=== PATIENT | male | born 1940 | race Caucasian/White ===

== ENCOUNTER 2018-11-18 09:10 | Inpatient (IN) | payer MEDICARE ==
[~2018-11-18 09:10] MED LIST: Acetaminophen 325 MG Tab PO SCH; Bisacodyl 5 MG Tab PO PRN; Lactated Ringers 1,000 ML IV SCH; Lidocaine 1%/Sod Bicarbonate in NS 8.4% 1 ML Syringe IDERM PRN; Magnesium Hydroxide 400 MG/5 ML Susp 30 ML Cup PO PRN; Morphine 8 MG, EPINEPHrine 0.3 MG, Cefuroxime 750 MG, Ketorolac 30 MG, Sodium Chloride ... ONE; Naloxone 0.4 MG/ML SDV IVPUSH PRN; Ondansetron 4 MG/2 ML SDV IVPUSH PRN; Pregabalin 25 MG Cap PO SCH; Sennosides 8.6 MG Tab PO PRN; Sodium Chloride 0.9% 10 ML Syringe FLUSH PRN; oxyCODONE ER 10 MG TAB.ER PO SCH
[2018-11-18] MEDS ORDERED: EPINEPHrine 1 MG/ML SDV ONE (09:30)
[2018-11-18] MEDS ORDERED: Ropivacaine 0.5% 5 MG/ML 30 ML SDV ONE (09:30)
[2018-11-18] MEDS ORDERED: ceFAZolin 1 GM Vial ONE ×2 (10:28→11:54)
[2018-11-18] MEDS ORDERED: Vancomycin 1 GM SDV ONE (10:28)
[2018-11-18] MEDS ORDERED: Iodine/Sodium Iodide 2% Tincture 30 ML Bottle ONE (10:28)
[2018-11-18] MEDS ORDERED: Bupivacaine 0.25% 30 ML SDV ONE (10:28)
[2018-11-18] MEDS ORDERED: Ketamine 500 mg/10 ML MDV ONE (11:04)
--- NOTE | 2018-11-18 11:23 | PCM.PREANE ---
Preanesthetic Assessment - Anesthesia/Transfusion/Family Hx Anesthesia History: Prior Anesthesia Reaction (headache and nausea with arm surgery) Family History of Anesthesia Reaction: No Transfusion History: No Prior Transfusion(s) - Review of Systems General: No Symptoms Pulmonary: No Symptoms Cardiovascular: Dyspnea on Exertion Gastrointestinal: No Symptoms Neurological: Tingling (tips of fingers) Other: Reports: Diabetes (AM BS 108@0952), Neck Pain (arthritic pain at times) - Physical Assessment NPO Status Date: 11/17/18 NPO Status Time: 22:00 Pulse: 78 O2 Sat by Pulse Oximetry: 96 Respiratory Rate: 18 Blood Pressure: 167/67 Temperature: 36.3 C Vital Signs: Last Vital Signs Temp 36.3 C 11/18/18 09:45 Pulse 78 11/18/18 09:45 Resp 18 11/18/18 09:45 BP 167/67 H 11/18/18 09:45 Pulse Ox 96 11/18/18 09:45 Height: 1.78 m Weight: 92.079 kg ASA Class: 3 Mental Status: Alert & Oriented x3 Dentition: Reports: Normal Dentition, Missing Tooth/Teeth Thyro-Mental Finger Breadths: 2 Mouth Opening Finger Breadths: 3 ROM/Head Extension: Limited/Partial Lungs: Clear to Auscultation, Normal Respiratory Effort Cardiovascular: Regular Rate, Regular Rhythm - Lab Values: Laboratory Last Values POC Glucose 108 mg/dL (83-110) 11/18/18 09:52 - Imaging/EKG Impressions: EKG NSR = 69 ECHO 2018 EF=50-55% - Allergies Allergies/Adverse Reactions: Allergies Allergy/AdvReac Type Severity Reaction Status Date / Time No Known Allergies Allergy Verified 11/18/18 10:42 - Blood Blood Available: No Product(s) Available: None - Anesthesia Plan Pre-Op Medication Ordered: None - Acknowledgements Anesthesia Type Planned: Spinal Pt an Appropriate Candidate for the Planned Anesthesia: Yes Alternatives and Risks of Anesthesia Discussed w Pt/Guardian: Yes Pt/Guardian Understands and Agrees with Anesthesia Plan: Yes PreAnesthesia Questionnaire HEENT History: Reports: Cataract, Impaired Vision Cardiovascular History: Reports: Other (See Below) Other Cardiovascular History: Valvular heart disease Respiratory History: Reports: Asthma, COPD Gastrointestinal History: Reports: None Genitourinary History: Reports: None Musculoskeletal History: Reports: Other (See Below) Other Musculoskeletal History: Left forearm fracture, left tricep tear. Had broken neck twice "fell out of a tractor in 2009 and 2010" "C1 fractures" Neurological History: Reports: None Psychiatric History: Reports: None Endocrine/Metabolic History: Reports: Diabetes, Type II Hematologic History: Reports: None Immunologic History: Reports: None Oncologic (Cancer) History: Reports: None Dermatologic History: Reports: None - Past Surgical History Head Surgeries/Procedures: Reports: None HEENT Surgical History: Reports: Other (See Below) Other HEENT Surgeries/Procedures: Left cataract extraction Cardiovascular Surgical History: Reports: None Respiratory Surgical History: Reports: None GI Surgical History: Reports: Appendectomy, Colonoscopy, Other (See Below) Other GI Surgeries/Procedures: Exploratory abdominal surgery Male Surgical History: Reports: None Endocrine Surgical History: Reports: None Neurological Surgical History: Reports: None Musculoskeletal Surgical History: Reports: Other (See Below) Other Musculoskeletal Surgeries/Procedures:: ORIF left forearm fracture, Repair of left tricep tear Dermatological Surgical History: Reports: None - SUBSTANCE USE Smoking Status *Q: 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) Tobacco Use Within Last Twelve Months: No Second Hand Smoke Exposure: No Days Per Week of Alcohol Use: 1 Number of Drinks Per Day: 0 Total Drinks Per Week: 0 Recreational Drug Use History: No - HOME MEDS Home Medications: Home Meds Fluticasone/Vilanterol [Breo Ellipta 200-25 Mcg INH] 1 puff IH DAILY 11/17/18 [ History] Insulin Glarg,Human.Rec.Analog [Lantus] 40 unit SUBCUT QAM 11/17/18 [History] Insulin Lispro [HumaLOG] 8 unit SQ BEDTIME 11/17/18 [History] Potassium Chloride 40 meq PO DAILY 11/17/18 [History] metFORMIN HCl [Metformin HCl] 1,000 mg PO BEDTIME 11/17/18 [History] - CURRENT (IN HOUSE) MEDS Current Meds: Current Medications Acetaminophen (Tylenol) 975 mg PO ONETIME ALEX Stop: 11/18/18 16:00 Last Admin: 11/18/18 10:15 Dose: 975 mg Aspirin (Ecotrin) 325 mg PO BID ALEX Bisacodyl (Dulcolax) 5 mg PO DAILY PRN PRN Reason: Constipation Cyclobenzaprine HCl (Flexeril) 10 mg PO BID PRN PRN Reason: Spasms Docusate Sodium (Colace) 100 mg PO BID [facility] Famotidine (Pepcid) 20 mg PO Q12H [facility] Lactated Ringer's (Ringers, Lactated) 1,000 mls @ 125 mls/hr IV ASDIRECTED [facility] Stop: 11/18/18 18:00 Last Admin: 11/18/18 09:50 Dose: 125 mls/hr Cefazolin Sodium/Dextrose 2 gm (/ Premix) 50 mls @ 100 mls/hr IV Q8H [facility] Stop: 11/19/18 10:29 Ketorolac Tromethamine (Toradol) 15 mg IVPUSH Q6H PRN PRN Reason: Pain Lidocaine/Sodium Bicarbonate (Buffered Lidocaine 1% In Ns 8.4%) 0.25 ml IDERM ONETIME PRN PRN Reason: Prior to IV Start Stop: 11/18/18 18:00 Last Admin: 11/18/18 09:50 Dose: 0.25 ml Magnesium Hydroxide (Milk Of Magnesia) 30 ml PO BID PRN PRN Reason: Constipation Morphine Sulfate (Morphine) 2 mg IVPUSH Q2H PRN PRN Reason: Breakthrough Pain Naloxone HCl (Narcan) 0.1 mg IVPUSH Q5M PRN PRN Reason: Oversedation Ondansetron HCl (Zofran) 4 mg IVPUSH Q6H PRN PRN Reason: Nausea/Vomiting Oxycodone HCl (Oxycontin) 10 mg PO ONETIME [facility] Stop: 11/18/18 16:00 Last Admin: 11/18/18 10:15 Dose: 10 mg Oxycodone/Acetaminophen (Percocet 325-5 Mg) 1 - 2 tab PO Q4H PRN PRN Reason: Pain Pregabalin (Lyrica) 50 mg PO ONETIME [facility] Stop: 11/18/18 16:00 Last Admin: 11/18/18 10:15 Dose: 50 mg Senna (Senna) 8.6 mg PO BID PRN PRN Reason: Constipation Sodium Chloride (Saline Flush) 10 ml FLUSH ASDIRECTED PRN PRN Reason: Keep Vein Open Stop: 11/18/18 18:00 Discontinued Medications Bupivacaine HCl (Marcaine 0.25%) Confirm Administered Dose 30 ml .ROUTE .STK- MED ONE Stop: 11/18/18 10:29 Cefazolin Sodium (Ancef) Confirm Administered Dose 2 gm .ROUTE .STK-MED ONE Stop: 11/18/18 10:29 Morphine Sulfate 8 mg/Epinephrine HCl 0.3 mg/Cefuroxime Sodium 750 mg/Ketorolac Tromethamine 30 mg/Sodium Chloride 27.9 ml 0 mg .XX ONETIME ONE Stop: 11/18/18 07:31 Epinephrine HCl (Adrenalin) Confirm Administered Dose 1 mg .ROUTE .STK-MED ONE Stop: 11/18/18 09:31 Iodine (Iodine 2% Mild Tincture) Confirm Administered Dose 30 ml .ROUTE .STK- MED ONE Stop: 11/18/18 10:29 Ketamine HCl (Ketalar) Confirm Administered Dose 500 mg .ROUTE .STK-MED ONE Stop: 11/18/18 11:05 Ropivacaine (Naropin 0.5%) Confirm Administered Dose 30 ml .ROUTE .STK-MED ONE Stop: 11/18/18 09:31 Tranexamic Acid (Cyklokapron) Confirm Administered Dose 1,000 mg .ROUTE .STK- MED ONE Stop: 11/18/18 10:29 Vancomycin HCl (Vancomycin) Confirm Administered Dose 1 gm .ROUTE .STK-MED ONE Stop: 11/18/18 10:29
[2018-11-18] MEDS ORDERED: Propofol 200 MG/20 ML SDV ONE ×3 (11:42→13:02)
[2018-11-18] MEDS ORDERED: Lidocaine 1% 4 ML ONE (11:43)
[2018-11-18] MEDS ORDERED: fentaNYL 100 MCG/2 ML SDV ONE (11:43)
[2018-11-18] MEDS ORDERED: Lactated Ringers 1,000 ML ONE (12:00)
--- NOTE | 2018-11-18 12:34 | PCM.CONS ---
H&P History of Present Illness - General Date of Service: 11/18/18 Admit Problem/Dx: Admission Diagnosis/Problem Admission Diagnosis/Problem Osteoarthritis of knee Source of Information: Patient, Old Records, Provider, RN, RN Notes Reviewed History Limitations: Reports: No Limitations - History of Present Illness Initial Comments - Free Text/Narative: Abel Pulido is a 78 yo male patient of Dr. Sevilla who is post-operative day 0 of right TKA. Hospital medicine was consulted for post-operative medical care of the following listed medical conditions. At this time he is resting comfortably in bed. Pain is controlled. He denies any chest pain, shortness of breath, palpitations, nausea, or vomiting. He carries a history of: impaired vision, valvular heart disease with mild AR and TR, moderate MR, diabetic neuropathy, moderate asthma, COPD, Hx/o C1 fracture, Type II DM, hypokalemia. 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 He is a full code. His primary care provider is Dr. Lopez. Right Knee Pain Score (Numeric/FACES): 6 - Related Data Allergies/Adverse Reactions: Allergies Allergy/AdvReac Type Severity Reaction Status Date / Time No Known Allergies Allergy Verified 11/18/18 10:42 Home Medications: Home Meds Fluticasone/Vilanterol [Breo Ellipta 200-25 Mcg INH] 1 puff IH DAILY 11/17/18 [ History] Insulin Glarg,Human.Rec.Analog [Lantus] 40 unit SUBCUT QAM 11/17/18 [History] Insulin Lispro [HumaLOG] 8 unit SQ BEDTIME 11/17/18 [History] Potassium Chloride 40 meq PO DAILY 11/17/18 [History] metFORMIN HCl [Metformin HCl] 1,000 mg PO BEDTIME 11/17/18 [History] Past Medical History HEENT History: Reports: Cataract, Impaired Vision Cardiovascular History: Reports: Other (See Below) Other Cardiovascular History: Valvular heart disease Respiratory History: Reports: Asthma, COPD Gastrointestinal History: Reports: None Genitourinary History: Reports: None Musculoskeletal History: Reports: Other (See Below) Other Musculoskeletal History: Left forearm fracture, left tricep tear. Had broken neck twice "fell out of a tractor in 2009 and 2010" "C1 fractures" Neurological History: Reports: None Psychiatric History: Reports: None Endocrine/Metabolic History: Reports: Diabetes, Type II Hematologic History: Reports: None Immunologic History: Reports: None Oncologic (Cancer) History: Reports: None Dermatologic History: Reports: None - Past Surgical History Head Surgeries/Procedures: Reports: None HEENT Surgical History: Reports: Other (See Below) Other HEENT Surgeries/Procedures: Left cataract extraction Cardiovascular Surgical History: Reports: None Respiratory Surgical History: Reports: None GI Surgical History: Reports: Appendectomy, Colonoscopy, Other (See Below) Other GI Surgeries/Procedures: Exploratory abdominal surgery Male Surgical History: Reports: None Endocrine Surgical History: Reports: None Neurological Surgical History: Reports: None Musculoskeletal Surgical History: Reports: Other (See Below) Other Musculoskeletal Surgeries/Procedures:: ORIF left forearm fracture, Repair of left tricep tear Dermatological Surgical History: Reports: None Social & Family History - Tobacco Use Smoking Status *Q: 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 Denies: Fever, Chills HEENT: Reports: No Symptoms. Denies: Headaches, Sore Throat Pulmonary: Reports: No Symptoms. Denies: Shortness of Breath, Wheezing, Cough, Sputum Cardiovascular: Reports: No Symptoms. Denies: Chest Pain, Palpitations Gastrointestinal: Reports: Nausea. Denies: Abdominal Pain, Constipation, Diarrhea, Vomiting (occasional "Spit up") Genitourinary: Reports: No Symptoms. Denies: Pain Musculoskeletal: Reports: Leg Pain Skin: Reports: No Symptoms. Denies: Cyanosis Psychiatric: Reports: No Symptoms. Denies: Confusion Neurological: Reports: No Symptoms. Denies: Pre-Existing Deficit Hematologic/Lymphatic: Reports: No Symptoms Immunologic: Reports: No Symptoms Exam - Exam Exam: See Below - Vital Signs Vital Signs: Last Vital Signs Temp 97.4 F 11/18/18 11:30 Pulse 78 11/18/18 11:30 Resp 18 11/18/18 11:30 BP 167/67 H 11/18/18 11:30 Pulse Ox 96 11/18/18 11:30 Weight: 203 lb - Exam Quality Assessment: DVT Prophylaxis General: Alert, Oriented, Cooperative. No: Mild Distress HEENT: Conjunctiva Clear, EACs Clear, EOMI, Hearing Intact, Mucosa Moist & [place] , Nares Patent, Posterior Pharynx Clear, PERRLA Neck: Supple, Trachea Midline Lungs: Clear to Auscultation, Normal Respiratory Effort Cardiovascular: Regular Rate, Regular Rhythm GI/Abdominal Exam: Normal Bowel Sounds, Soft, Non-Tender, No Distention, No Abnormal Bruit (Male) Exam: Deferred Rectal (Males) Exam: Deferred Back Exam: Normal Inspection, Full Range of Motion Extremities: No Pedal Edema, Normal Capillary Refill, Leg Pain, Limited Range of Motion, Other (Bandage in place on right leg. Bandage is dry and intact. Cooling pack in place. ) Peripheral Pulses: 2+: Radial (L), Radial (R), Dorsalis Pedis (L), Dorsalis Pedis (R) Skin: Warm, Dry, Intact Neurological: Cranial Nerves Intact (grossly ) Neuro Extensive - Mental Status: Alert, Oriented x3 - Patient Data Lab Results Last 24 hrs: Laboratory Results - last 24 hr 11/18/18 Range/Units 09:52 POC Glucose 108 (83-110) mg/dL Consult PN Assessment/Plan POD#: 0 Procedures: Procedures MR-STAPH DNA AMP PROBE (11/11/18) (1) S/P total knee arthroplasty SNOMED Code(s): 5463566620208, 904434244, 9538808997761 Code(s): Z96.659 - PRESENCE OF UNSPECIFIED ARTIFICIAL KNEE JOINT Priority: High Current Visit: Yes Qualifiers: Laterality: right Qualified Code(s): Z96.651 - Presence of right artificial knee joint (2) Osteoarthritis SNOMED Code(s): 742294466 Code(s): M19.90 - UNSPECIFIED OSTEOARTHRITIS, UNSPECIFIED SITE Priority: High Current Visit: Yes Qualifiers: Osteoarthritis location: knee Osteoarthritis type: primary Laterality: right Qualified Code(s): M17.11 - Unilateral primary osteoarthritis, right knee (3) Asthma SNOMED Code(s): 163773234 Code(s): J45.909 - UNSPECIFIED ASTHMA, UNCOMPLICATED Priority: Medium Current Visit: No Qualifiers: Asthma severity: moderate Asthma persistence: unspecified Asthma complication type: unspecified Qualified Code(s): J45.909 - Unspecified asthma , uncomplicated (4) Type II diabetes mellitus SNOMED Code(s): 75589314 Code(s): E11.9 - TYPE 2 DIABETES MELLITUS WITHOUT COMPLICATIONS Priority: Medium Current Visit: No Qualifiers: Diabetes mellitus half-way insulin use: unspecified joint terminal attack controller insulin use status Diabetes mellitus complication status: without complication Qualified Code(s): E11.9 - Type 2 diabetes mellitus without complications (5) Hypokalemia SNOMED Code(s): 31322560 Code(s): E87.6 - HYPOKALEMIA Priority: Low Current Visit: No (6) Valvular heart disease SNOMED Code(s): 628060 Code(s): I38 - ENDOCARDITIS, VALVE UNSPECIFIED Priority: Medium Current Visit: No (7) Diabetic neuropathy SNOMED Code(s): 681616247, 639410771 Code(s): E11.40 - TYPE 2 DIABETES MELLITUS WITH DIABETIC NEUROPATHY, UNSP Priority: Medium Current Visit: No Qualifiers: Diabetes mellitus type: type 2 (8) COPD (chronic obstructive pulmonary disease) SNOMED Code(s): 47631837 Code(s): J44.9 - CHRONIC OBSTRUCTIVE PULMONARY DISEASE, UNSPECIFIED Priority: Medium Current Visit: No Qualifiers: COPD type: unspecified COPD Qualified Code(s): J44.9 - Chronic obstructive pulmonary disease, unspecified (9) Postoperative nausea SNOMED Code(s): 98693000 Code(s): R11.0 - NAUSEA; Z98.890 - OTHER SPECIFIED POSTPROCEDURAL STATES Priority: High Current Visit: Yes Problem List Initiated/Reviewed/Updated: No Plan: I/P: Acute: S/P right total knee arthroplasty - post-operative day 0 -DVT prophylaxis and pain management per primary care team -PT/OT -IS/RT -Monitor oxygen saturation -Titrate oxygen as needed -Home medications reviewed - multiple medications held -Vital signs stable -Monitor labs -Pre-operative Hgb was 15.1 -Pre-operative GFR was >60 -Pre-operative creatinine was 1.1 -Pre-operative BUN was 29 -Pre-operative A1C was 7.1 -Pre-operative INR was 1.13 -Echo from 03/05/19: LVEF of 50-55%; Mild AV regurgitation; Moderate MV regurgitation Osteoarthritis of right knee -Pain management per primary care team Post-operative nausea -Waves of nausea and occasionally spits up some saliva -Has not actually vomited -Zofran and scopolamine patch ordered -Monitor need for stronger antiemetic Chronic: impaired vision valvular heart disease with mild AR and TR, moderate MR diabetic neuropathy moderate asthma COPD Hx/o C1 fracture Type II DM - SS insulin and QID AC and Bedtime glucose checks hypokalemia Plan: CM for discharge planning GI prophylaxis Home medications as indicated Other orders as listed above Routine AM labs He is a full code. His PCP is Dr. Lopez. Thank you for allowing us to participate in the care of this patient!! Requesting Provider: Dr. Sevilla Date Consult Requested: 11/18/18 Patient History Reviewed: Yes Admission H&P Reviewed: Yes Time Spent (in minutes): 45
--- NOTE | 2018-11-18 13:43 | PCM.POSTAN ---
POST ANESTHESIA ASSESSMENT - MENTAL STATUS Mental Status: Other (drowsy) - VITAL SIGNS Pulse Rate: 78 SaO2: 96 Resp Rate: 18 Blood Pressure: 167/67 Temperature: 36.3 C - RESPIRATORY Respiratory Status: Respiratory Rate WNL, Airway Patent, O2 Saturation Stable - CARDIOVASCULAR CV Status: Pulse Rate WNL, Blood Pressure Stable - GASTROINTESTINAL GI Status: No Symptoms - PAIN Pain Score: 0 - POST OP HYDRATION Hydration Status: Adequate & Stable
[2018-11-18] MEDS ORDERED: Ondansetron 4 MG/2 ML SDV IVPUSH PRN (13:44)
[2018-11-18] MEDS ORDERED: diphenhydrAMINE 50 MG/ML SDV IVPUSH PRN (13:44)
[2018-11-18] MEDS ORDERED: fentaNYL 100 MCG/2 ML SDV IVPUSH PRN (13:44)
--- NOTE | 2018-11-18 14:55 | PCM.SN ---
- Free Text/Narrative Note: 11/18/18 Right selective femoral nerve block at the adductor canal for post-procedure pain control under US guidance requested by Dr. Sevilla. Time Out:1348 Start:1350 End: 1357 Chart reviewed. Consent signed. Questions answered. Appropriate monitors applied. Time out performed. Right mid-shaft femur identified with ultrasound, scanning medially of femur, the femoral artery in the adductor canal visualized , and the femoral nerve located laterally to the artery. The skin was prepped lateral to the ultrasound probe with chlorahexadine times two. The 21ga 4 insulated block needle was inserted under direct ultrasound guidance into the adductor canal. 25mL of 0.5% ropivacaine with 1:200,000 epinephrine was injected circumferentially around the nerve with intermittent negative aspiration noted. Patient tolerated the procedure well. Sterile technique noted along with sterile gloves, mask, and sterile probe cover. See picture on progress note and vital signs on nurses notes. Block completed in PACU. Morena Whaley CRNA
--- NOTE | 2018-11-18 14:57 | CR ---
Right knee: AP and lateral views the right knee were obtained. Comparison: No previous knee exam. Knee prosthesis is seen. Soft tissue air is noted from surgical procedure. Underlying bony structures are intact. Impression: 1. Satisfactory postoperative radiographic appearance of recently placed right knee prosthesis. Diagnostic code #2
[2018-11-18] MEDS ORDERED: Scopolamine 1.5 MG Transdermal Patch TRDERM PRN (15:17)
[2018-11-18] MEDS: Insulin Lispro 100 Units/ML 3 ML Vial SUBCUT SCH ×2 (17:11→21:30)
[2018-11-18] MEDS ORDERED: Prochlorperazine 10 MG in Sodium Chloride 0.9% 50 ML IV PRN (17:21)
[2018-11-18] MEDS ORDERED: Prochlorperazine 10 MG/2 ML SDV IVPUSH PRN (17:26)
[2018-11-18] MEDS: Acetaminophen/oxyCODONE 325-5 MG Tab PO PRN (17:41)
[2018-11-18] MEDS: Ketorolac 15 MG/ML SDV IVPUSH PRN (21:33)
[2018-11-18] MEDS: ceFAZolin 2 GM in Premix Bag 1 BAG IV SCH (21:33)
[2018-11-18] MEDS: Famotidine 20 MG Tab PO SCH (21:41)
[2018-11-18] MEDS: Docusate Sodium 100 MG Cap PO SCH (21:41)
[2018-11-19] MEDS: Ketorolac 15 MG/ML SDV IVPUSH PRN (03:54)
[2018-11-19] MEDS: ceFAZolin 2 GM in Premix Bag 1 BAG IV SCH ×2 (03:54→12:52)
--- NOTE | 2018-11-19 06:39 | PCM.CONSN ---
- General Info Date of Service: 11/19/18 Admission Dx/Problem (Free Text): Admission Diagnosis/Problem Admission Diagnosis/Problem Osteoarthritis of knee Subjective Update: 11/19/18: In to see Abel. He has been a 2 assist this AM. PT/OT is still unsure of how he will do at home. He will likely need to stay at least tonight. Unfortunately he was nauseated and dry heaving yesterday evening for most of the day. This limited his oral intake. His creatinine was elevated this AM and his GFR has decreased. 500mL fluid bolus given with 100mL NS thereafter until 1L is infused. He has been eating well today thus far. Repeat labs will be ordered tomorrow to re-check kidney function. We will monitor his blood sugars and may need his insulin adjusted again now that he is eating. CM/SW consulted for discharge planning. Functional Status: Reports: Pain Controlled, Tolerating Diet, Ambulating, Urinating, Incentive Spirometry. Denies: New Symptoms - Review of Systems General: Reports: Weakness, Fatigue. Denies: Fever, Chills HEENT: Reports: No Symptoms. Denies: Headaches, Sore Throat Pulmonary: Reports: No Symptoms. Denies: Shortness of Breath, Pleuritic Chest Pain, Cough, Sputum, Wheezing Cardiovascular: Reports: No Symptoms. Denies: Chest Pain, Palpitations Gastrointestinal: Reports: No Symptoms. Denies: Abdominal Pain, Constipation, Diarrhea, Nausea, Vomiting Genitourinary: Reports: No Symptoms. Denies: Pain Musculoskeletal: Reports: Leg Pain Skin: Reports: No Symptoms. Denies: Cyanosis Neurological: Reports: Difficulty Walking, Weakness, Gait Disturbance. Denies: Confusion Psychiatric: Reports: No Symptoms - Patient Data Vitals - Most Recent: Last Vital Signs Temp 97.9 F 11/19/18 03:51 Pulse 71 11/19/18 03:51 Resp 18 11/19/18 03:51 BP 115/73 11/19/18 03:51 Pulse Ox 99 11/19/18 03:51 Weight - Most Recent: 208 lb 4.8 oz I&O - Last 24 Hours: Intake & Output 11/18/18 11/18/18 11/19/18 14:59 22:59 06:59 Intake Total 250 400 250 Output Total 150 50 Balance 250 250 200 Lab Results Last 24 Hours: Laboratory Results - last 24 hr 11/18/18 11/18/18 11/18/18 Range/Units 09:52 14:16 16:42 WBC (4.23-9.07) K/mm3 RBC (4.63-6.08) M/mm3 Hgb (13.7-17.5) gm/L Hct (40.1-51.0) % MCV (79.0-92.2) fl MCH (25.7-32.2) pg MCHC (32.2-35.5) g/dl RDW Std Deviation (35.1-43.9) fL Plt Count (163-337) K/mm3 MPV (9.4-12.3) fl Sodium (136-145) mEq/L Potassium (3.5-5.1) mEq/L Chloride (98-107) mEq/L Carbon Dioxide (21-32) mEq/L Anion Gap (5-15) BUN (7-18) mg/dL Creatinine (0.7-1.3) mg/dL Est Cr Clr Drug Dosing mL/min Estimated GFR (MDRD) (>60) mL/min BUN/Creatinine Ratio (14-18) Glucose (83-115) mg/dL POC Glucose 108 125 H 168 H (83-110) mg/dL Calcium (8.5-10.1) mg/dL Total Bilirubin (0.2-1.0) mg/dL AST (15-37) U/L ALT (16-63) U/L Alkaline Phosphatase (46-116) U/L Total Protein (6.4-8.2) g/dl Albumin (3.4-5.0) g/dl Globulin gm/dL Albumin/Globulin Ratio (1-2) 11/18/18 11/19/18 11/19/18 Range/Units 21:27 04:42 04:42 WBC 8.28 (4.23-9.07) K/mm3 RBC 3.74 L (4.63-6.08) M/mm3 Hgb 11.6 L (13.7-17.5) gm/L Hct 34.3 L (40.1-51.0) % MCV 91.7 (79.0-92.2) fl MCH 31.0 (25.7-32.2) pg MCHC 33.8 (32.2-35.5) g/dl RDW Std Deviation 43.2 (35.1-43.9) fL Plt Count 185 (163-337) K/mm3 MPV 10.7 (9.4-12.3) fl Sodium 138 (136-145) mEq/L Potassium 3.5 (3.5-5.1) mEq/L Chloride 101 (98-107) mEq/L Carbon Dioxide 28 (21-32) mEq/L Anion Gap 12.5 (5-15) BUN 26 H (7-18) mg/dL Creatinine 1.4 H (0.7-1.3) mg/dL Est Cr Clr Drug Dosing 46.35 mL/min Estimated GFR (MDRD) 49 (>60) mL/min BUN/Creatinine Ratio 18.6 H (14-18) Glucose 190 H (83-115) mg/dL POC Glucose 166 H (83-110) mg/dL Calcium 7.9 L (8.5-10.1) mg/dL Total Bilirubin 0.9 (0.2-1.0) mg/dL AST 23 (15-37) U/L ALT 46 (16-63) U/L Alkaline Phosphatase 47 (46-116) U/L Total Protein 5.3 L (6.4-8.2) g/dl Albumin 2.8 L (3.4-5.0) g/dl Globulin 2.5 gm/dL Albumin/Globulin Ratio 1.1 (1-2) Med Orders - Current: Current Medications Aspirin (Ecotrin) 325 mg PO BID [facility] Bisacodyl (Dulcolax) 5 mg PO DAILY PRN PRN Reason: Constipation Cyclobenzaprine HCl (Flexeril) 10 mg PO BID PRN PRN Reason: Spasms Docusate Sodium (Colace) 100 mg PO BID [facility] Last Admin: 11/18/18 21:41 Dose: 100 mg Famotidine (Pepcid) 20 mg PO Q12H [facility] Last Admin: 11/18/18 21:41 Dose: 20 mg Cefazolin Sodium/Dextrose 2 gm (/ Premix) 50 mls @ 100 mls/hr IV Q8H [facility] Stop: 11/19/18 12:29 Last Admin: 11/19/18 03:54 Dose: 100 mls/hr Insulin Glargine (Lantus) 20 unit SUBCUT QAM [facility] Insulin Human Lispro (Humalog) 0 unit SUBCUT QIDACANDBED [facility]; Protocol Last Admin: 11/18/18 21:30 Dose: 1 units Ketorolac Tromethamine (Toradol) 15 mg IVPUSH Q6H PRN PRN Reason: Pain Last Admin: 11/19/18 03:54 Dose: 15 mg Magnesium Hydroxide (Milk Of Magnesia) 30 ml PO BID PRN PRN Reason: Constipation Miscellaneous Information (Remove Patch) 1 ea TRDERM Q72H [facility] Mometasone Furoate/Formoterol Fumar (Dulera 200-5 Mcg) 2 puff IH BID [facility] Morphine Sulfate (Morphine) 2 mg IVPUSH Q2H PRN PRN Reason: Breakthrough Pain Naloxone HCl (Narcan) 0.1 mg IVPUSH Q5M PRN PRN Reason: Oversedation Ondansetron HCl (Zofran) 4 mg IVPUSH Q6H PRN PRN Reason: Nausea/Vomiting Last Admin: 11/18/18 14:32 Dose: 4 mg Oxycodone/Acetaminophen (Percocet 325-5 Mg) 1 - 2 tab PO Q4H PRN PRN Reason: Pain Last Admin: 11/18/18 17:41 Dose: 2 tab Prochlorperazine Edisylate (Compazine) 10 mg IVPUSH Q6H PRN PRN Reason: NAUSEA/VOMITING Last Admin: 11/18/18 17:37 Dose: 10 mg Scopolamine (Transderm-Scop) 1.5 mg TRDERM Q72H PRN PRN Reason: Nausea Last Admin: 11/18/18 15:32 Dose: 1.5 mg Senna (Senna) 8.6 mg PO BID PRN PRN Reason: Constipation Discontinued Medications Acetaminophen (Tylenol) 975 mg PO ONETIME [facility] Stop: 11/18/18 16:00 Last Admin: 11/18/18 10:15 Dose: 975 mg Bupivacaine HCl (Marcaine 0.25%) Confirm Administered Dose 30 ml .ROUTE .STK- MED ONE Stop: 11/18/18 10:29 Last Admin: 11/18/18 13:01 Dose: 30 ml Cefazolin Sodium (Ancef) Confirm Administered Dose 2 gm .ROUTE .STK-MED ONE Stop: 11/18/18 10:29 Last Admin: 11/18/18 12:55 Dose: 2 gm Cefazolin Sodium (Ancef) Confirm Administered Dose 2 gm .ROUTE .STK-MED ONE Stop: 11/18/18 11:55 Morphine Sulfate 8 mg/Epinephrine HCl 0.3 mg/Cefuroxime Sodium 750 mg/Ketorolac Tromethamine 30 mg/Sodium Chloride 27.9 ml 0 mg .XX ONETIME ONE Stop: 11/18/18 07:31 Last Admin: 11/18/18 13:00 Dose: 788.3 mg Diphenhydramine HCl (Benadryl) 25 mg IVPUSH Q6H PRN PRN Reason: pruritis Stop: 11/18/18 20:00 Epinephrine HCl (Adrenalin) Confirm Administered Dose 1 mg .ROUTE .STK-MED ONE Stop: 11/18/18 09:31 Fentanyl (Sublimaze) Confirm Administered Dose 100 mcg .ROUTE .STK-MED ONE Stop: 11/18/18 11:44 Fentanyl (Sublimaze) 50 mcg IVPUSH Q5M PRN PRN Reason: Pain Stop: 11/18/18 20:00 Lactated Ringer's (Ringers, Lactated) 1,000 mls @ 125 mls/hr IV ASDIRECTED [facility] Stop: 11/18/18 18:00 Last Admin: 11/18/18 09:50 Dose: 125 mls/hr Lidocaine HCl (Xylocaine-Mpf 1%) Confirm Administered Dose 4 mls @ as directed .ROUTE .STK-MED ONE Stop: 11/18/18 11:44 Lactated Ringer's (Ringers, Lactated) Confirm Administered Dose 1,000 mls @ as directed .ROUTE .STK-MED ONE Stop: 11/18/18 12:01 Prochlorperazine Edisylate 10 (mg/ Sodium Chloride) 52 mls @ 150 mls/hr IV Q6H PRN PRN Reason: Nausea/Vomiting Iodine (Iodine 2% Mild Tincture) Confirm Administered Dose 30 ml .ROUTE .STK- MED ONE Stop: 11/18/18 10:29 Last Admin: 11/18/18 12:54 Dose: 18 ml Ketamine HCl (Ketalar) Confirm Administered Dose 500 mg .ROUTE .STK-MED ONE Stop: 11/18/18 11:05 Lidocaine/Sodium Bicarbonate (Buffered Lidocaine 1% In Ns 8.4%) 0.25 ml IDERM ONETIME PRN PRN Reason: Prior to IV Start Stop: 11/18/18 18:00 Last Admin: 11/18/18 09:50 Dose: 0.25 ml Ondansetron HCl (Zofran) 4 mg IVPUSH ONETIME PRN PRN Reason: Nausea/Vomiting Stop: 11/18/18 20:00 Oxycodone HCl (Oxycontin) 10 mg PO ONETIME [facility] Stop: 11/18/18 16:00 Last Admin: 11/18/18 10:15 Dose: 10 mg Pregabalin (Lyrica) 50 mg PO ONETIME [facility] Stop: 11/18/18 16:00 Last Admin: 11/18/18 10:15 Dose: 50 mg Propofol (Diprivan 20 Ml) Confirm Administered Dose 200 mg .ROUTE .STK-MED ONE Stop: 11/18/18 11:43 Propofol (Diprivan 20 Ml) Confirm Administered Dose 200 mg .ROUTE .STK-MED ONE Stop: 11/18/18 12:24 Propofol (Diprivan 20 Ml) Confirm Administered Dose 200 mg .ROUTE .STK-MED ONE Stop: 11/18/18 13:03 Ropivacaine (Naropin 0.5%) Confirm Administered Dose 30 ml .ROUTE .STK-MED ONE Stop: 11/18/18 09:31 Sodium Chloride (Saline Flush) 10 ml FLUSH ASDIRECTED PRN PRN Reason: Keep Vein Open Stop: 11/18/18 18:00 Tranexamic Acid (Cyklokapron) Confirm Administered Dose 1,000 mg .ROUTE .STK- MED ONE Stop: 11/18/18 10:29 Last Admin: 11/18/18 13:08 Dose: 1,000 mg Vancomycin HCl (Vancomycin) Confirm Administered Dose 1 gm .ROUTE .STK-MED ONE Stop: 11/18/18 10:29 Last Admin: 11/18/18 13:03 Dose: 1 gm - Exam Quality Assessment: DVT Prophylaxis. No: Supplemental Oxygen General: Alert, Oriented, Cooperative, No Acute Distress HEENT: Pupils Equal, Pupils Reactive, EOMI, Mucous Membr. Moist/[place] Neck: Supple, Trachea Midline Lungs: Clear to Auscultation, Normal Respiratory Effort Cardiovascular: Regular Rate, Regular Rhythm GI/Abdominal Exam: Normal Bowel Sounds, Soft, Non-Tender, No Distention, No Abnormal Bruit (Male) Exam: Deferred Back Exam: Normal Inspection, Full Range of Motion Extremities: Normal Inspection, No Pedal Edema, Normal Capillary Refill, Leg Pain, Limited Range of Motion, Other (Bandage in place on right leg. Cooling pack in place. ) Peripheral Pulses: 2+: Radial (L), Radial (R), Posterior Tibial (L), Posterior Tibial (R) Skin: Warm, Dry, Intact Wound/Incisions: Dressing Dry and Intact, No Drainage Neurological: No New Focal Deficit Psy/Mental Status: Alert Consult PN Assessment/Plan POD#: 1 Procedures: Procedures MR-STAPH DNA AMP PROBE (11/11/18) (1) S/P total knee arthroplasty SNOMED Code(s): 9938263449944, 600316687, 9387581267878 Code(s): Z96.659 - PRESENCE OF UNSPECIFIED ARTIFICIAL KNEE JOINT Priority: High Current Visit: Yes Qualifiers: Laterality: right Qualified Code(s): Z96.651 - Presence of right artificial knee joint (2) Osteoarthritis SNOMED Code(s): 424916350 Code(s): M19.90 - UNSPECIFIED OSTEOARTHRITIS, UNSPECIFIED SITE Priority: High Current Visit: Yes Qualifiers: Osteoarthritis location: knee Osteoarthritis type: primary Laterality: right Qualified Code(s): M17.11 - Unilateral primary osteoarthritis, right knee (3) Asthma SNOMED Code(s): 731539569 Code(s): J45.909 - UNSPECIFIED ASTHMA, UNCOMPLICATED Priority: Medium Current Visit: No Qualifiers: Asthma severity: moderate Asthma persistence: unspecified Asthma complication type: unspecified Qualified Code(s): J45.909 - Unspecified asthma , uncomplicated (4) Type II diabetes mellitus SNOMED Code(s): 99439726 Code(s): E11.9 - TYPE 2 DIABETES MELLITUS WITHOUT COMPLICATIONS Priority: Medium Current Visit: No Qualifiers: Diabetes mellitus retirement insulin use: unspecified rn long term care insulin use status Diabetes mellitus complication status: without complication Qualified Code(s): E11.9 - Type 2 diabetes mellitus without complications (5) Hypokalemia SNOMED Code(s): 81458901 Code(s): E87.6 - HYPOKALEMIA Priority: Low Current Visit: No (6) Valvular heart disease SNOMED Code(s): 773357 Code(s): I38 - ENDOCARDITIS, VALVE UNSPECIFIED Priority: Medium Current Visit: No (7) Diabetic neuropathy SNOMED Code(s): 184622131, 277799018 Code(s): E11.40 - TYPE 2 DIABETES MELLITUS WITH DIABETIC NEUROPATHY, UNSP Priority: Medium Current Visit: No Qualifiers: Diabetes mellitus type: type 2 (8) COPD (chronic obstructive pulmonary disease) SNOMED Code(s): 21258369 Code(s): J44.9 - CHRONIC OBSTRUCTIVE PULMONARY DISEASE, UNSPECIFIED Priority: Medium Current Visit: No Qualifiers: COPD type: unspecified COPD Qualified Code(s): J44.9 - Chronic obstructive pulmonary disease, unspecified (9) Postoperative nausea SNOMED Code(s): 15740124 Code(s): R11.0 - NAUSEA; Z98.890 - OTHER SPECIFIED POSTPROCEDURAL STATES Priority: High Current Visit: Yes (10) Acute kidney injury SNOMED Code(s): 93542863, 70106304 Code(s): N17.9 - ACUTE KIDNEY FAILURE, UNSPECIFIED Priority: High Current Visit: Yes Problem List Initiated/Reviewed/Updated: Yes My Orders Last 24 Hours: My Active Orders 11/18/18 15:55 Blood Glucose Check, Bedside [RC] QIDACANDBED 11/18/18 17:00 Insulin Lispro [HumaLOG] See Protocol SUBCUT QIDACANDBED 11/19/18 08:00 Insulin Glarg,Human.Rec.Analog [LantUS] 20 unit SUBCUT QAM 11/19/18 09:00 Mometasone/Formoterol [Dulera 200-5 MCG] 2 puff IH BID Plan: I/P: Acute: S/P right total knee arthroplasty - post-operative day 1 -DVT prophylaxis and pain management per primary care team -PT/OT -IS/RT -Monitor oxygen saturation -Titrate oxygen as needed -Home medications reviewed - multiple medications held -Vital signs stable -Monitor labs -Pre-operative Hgb was 15.1; Now 11.6 -Pre-operative GFR was >60; Now 49 -Pre-operative creatinine was 1.1; Now 1.4 -Pre-operative BUN was 29; Now 26 -Pre-operative A1C was 7.1 -Pre-operative INR was 1.13 -Echo from 03/05/19: LVEF of 50-55%; Mild AV regurgitation; Moderate MV regurgitation Osteoarthritis of right knee -Pain management per primary care team AVE -Creatinine as above -GFR as above -BUN as above -Patient was nauseated and had poor oral intake POD 0 2/2 nausea -This has since resolved and has been eating well since -Fluid bolus given -Encourage oral hydration S/P Post-operative nausea -Waves of nausea and occasionally spits up some saliva -Has not actually vomited -Zofran and scopolamine patch ordered -Compazine given with good relief Chronic: impaired vision valvular heart disease with mild AR and TR, moderate MR diabetic neuropathy moderate asthma COPD Hx/o C1 fracture Type II DM - SS insulin and QID AC and Bedtime glucose checks hypokalemia Plan: CM for discharge planning GI prophylaxis Home medications as indicated Other orders as listed above Routine AM labs He is a full code. His PCP is Dr. Lopez. Thank you for allowing us to participate in the care of this patient!!
[2018-11-19] MEDS ORDERED: Sodium Chloride 0.9% 500 ML IV ONE (06:40)
[2018-11-19] MEDS ORDERED: Insulin Glarg,Human.Rec.Analog 100 UNIT/ML ML SUBCUT SCH (08:00)
[2018-11-19] MEDS: Insulin Lispro 100 Units/ML 3 ML Vial SUBCUT SCH ×4 (08:39→22:40)
[2018-11-19] MEDS: Aspirin 325 MG Tab.EC PO SCH ×2 (08:40→22:39)
[2018-11-19] MEDS: Famotidine 20 MG Tab PO SCH ×2 (08:40→22:39)
[2018-11-19] MEDS: Docusate Sodium 100 MG Cap PO SCH ×2 (08:40→22:39)
[2018-11-19] MEDS: Acetaminophen/oxyCODONE 325-5 MG Tab PO PRN ×3 (08:41→18:27)
--- NOTE | 2018-11-19 10:58 | PCM48HPAN ---
Post Anesthesia Note - EVALUATION WITHIN 48HRS OF ANESTHETIC Vital Signs in Normal Range: Yes Patient Participated in Evaluation: Yes Respiratory Function Stable: Yes Airway Patent: Yes Cardiovascular Function Stable: Yes Hydration Status Stable: Yes Pain Control Satisfactory: Yes Nausea and Vomiting Control Satisfactory: Yes Mental Status Recovered: Yes (emesis last evening- much better today- not much pain yesterday) Pulse Rate: 81 Resp Rate: 18 Temperature: 99.1 F Blood Pressure: 139/64
[2018-11-19] MEDS: Formoterol/Mometasone 200-5 MCG 8.8 GM Inhaler IH SCH ×2 (12:57→20:28)
[2018-11-19] MEDS: Cyclobenzaprine 10 MG Tab PO PRN (14:58)
[2018-11-19] MEDS: Morphine 2 MG/ML Syringe IVPUSH PRN (19:15)
[2018-11-20] MEDS: Acetaminophen/oxyCODONE 325-5 MG Tab PO PRN ×5 (03:50→23:32)
[2018-11-20] MEDS: Famotidine 20 MG Tab PO SCH ×2 (09:14→21:01)
[2018-11-20] MEDS: Insulin Lispro 100 Units/ML 3 ML Vial SUBCUT SCH ×4 (09:14→21:04)
[2018-11-20] MEDS: Insulin Glarg,Human.Rec.Analog 100 UNIT/ML ML SUBCUT SCH (09:15)
[2018-11-20] MEDS: Aspirin 325 MG Tab.EC PO SCH ×2 (09:15→21:01)
[2018-11-20] MEDS: Docusate Sodium 100 MG Cap PO SCH ×2 (09:15→21:01)
[2018-11-20] MEDS: Formoterol/Mometasone 200-5 MCG 8.8 GM Inhaler IH SCH ×2 (09:32→20:43)
[2018-11-20] MEDS ORDERED: Magnesium Sulfate/Water 4 GM in Premix Bag 1 BAG IV ONE (09:45)
[2018-11-20] MEDS ORDERED: Sodium Chloride 0.9% 1,000 ML IV SCH (10:00)
[2018-11-20] MEDS: Morphine 2 MG/ML Syringe IVPUSH PRN (10:03)
[2018-11-20] MEDS: Magnesium Oxide 400 MG Tab PO SCH ×2 (10:06→21:02)
[2018-11-20] MEDS: Potassium Chloride 20 MEQ Tab.ER PO SCH ×2 (10:06→21:02)
[2018-11-20] MEDS: Potassium Chloride 10 MEQ in Premix Bag 1 BAG IV SCH ×4 (10:12→13:49)
[2018-11-20] MEDS ORDERED: Sodium Chloride 0.9% 1,000 ML IV PRN (10:30)
[2018-11-20] MEDS ORDERED: oxyCODONE 5 MG Tab PO PRN (10:46)
--- NOTE | 2018-11-20 11:02 | PCM.SURGPN ---
- General Info Date of Service: 11/19/18 POD#: 1 Functional Status: Reports: Tolerating Diet, Urinating, Incentive Spirometry, Other (The pt has been slow to progress with therapies. He is concerned re: d/ c to home due to limited mobility.) - Patient Data Vitals - Most Recent: Last Vital Signs Temp 97.3 F 11/20/18 08:59 Pulse 73 11/20/18 08:59 Resp 14 11/20/18 08:59 BP 106/65 11/20/18 08:59 Pulse Ox 97 11/20/18 09:33 Weight - Most Recent: 207 lb 14.4 oz I&O - Last 24 Hours: Intake & Output 11/19/18 11/20/18 11/20/18 22:59 06:59 14:59 Intake Total 1660 800 Output Total 1450 Balance 1660 -650 Lab Results Last 24 Hrs: Laboratory Results - last 24 hr 11/19/18 11/19/18 11/19/18 Range/Units 11:43 16:54 20:48 WBC (4.23-9.07) K/mm3 RBC (4.63-6.08) M/mm3 Hgb (13.7-17.5) gm/L Hct (40.1-51.0) % MCV (79.0-92.2) fl MCH (25.7-32.2) pg MCHC (32.2-35.5) g/dl RDW Std Deviation (35.1-43.9) fL Plt Count (163-337) K/mm3 MPV (9.4-12.3) fl Neut % (Auto) (34.0-67.9) % Lymph % (Auto) (21.8-53.1) % Island % (Auto) (5.3-12.2) % Eos % (Auto) (0.8-7.0) Baso % (Auto) (0.1-1.2) % Neut # (Auto) (1.78-5.38) K/mm3 Lymph # (Auto) (1.32-3.57) K/mm3 Island # (Auto) (0.30-0.82) K/mm3 Eos # (Auto) (0.04-0.54) K/mm3 Baso # (Auto) (0.01-0.08) K/mm3 Sodium (136-145) mEq/L Potassium (3.5-5.1) mEq/L Chloride (98-107) mEq/L Carbon Dioxide (21-32) mEq/L Anion Gap (5-15) BUN (7-18) mg/dL Creatinine (0.7-1.3) mg/dL Est Cr Clr Drug Dosing mL/min Estimated GFR (MDRD) (>60) mL/min BUN/Creatinine Ratio (14-18) Glucose (83-115) mg/dL POC Glucose 204 H 187 H 201 H (83-110) mg/dL Calcium (8.5-10.1) mg/dL Magnesium (1.8-2.4) mg/dl 11/20/18 11/20/18 11/20/18 Range/Units 04:31 04:31 06:59 WBC 7.81 (4.23-9.07) K/mm3 RBC 3.74 L (4.63-6.08) M/mm3 Hgb 11.6 L (13.7-17.5) gm/L Hct 33.8 L (40.1-51.0) % MCV 90.4 (79.0-92.2) fl MCH 31.0 (25.7-32.2) pg MCHC 34.3 (32.2-35.5) g/dl RDW Std Deviation 41.5 (35.1-43.9) fL Plt Count 189 (163-337) K/mm3 MPV 10.5 (9.4-12.3) fl Neut % (Auto) 72.1 H (34.0-67.9) % Lymph % (Auto) 12.7 L (21.8-53.1) % Island % (Auto) 11.5 (5.3-12.2) % Eos % (Auto) 3.3 (0.8-7.0) Baso % (Auto) 0.1 (0.1-1.2) % Neut # (Auto) 5.63 H (1.78-5.38) K/mm3 Lymph # (Auto) 0.99 L (1.32-3.57) K/mm3 Island # (Auto) 0.90 H (0.30-0.82) K/mm3 Eos # (Auto) 0.26 (0.04-0.54) K/mm3 Baso # (Auto) 0.01 (0.01-0.08) K/mm3 Sodium 136 (136-145) mEq/L Potassium 2.7 L (3.5-5.1) mEq/L Chloride 99 (98-107) mEq/L Carbon Dioxide 29 (21-32) mEq/L Anion Gap 10.7 (5-15) BUN 20 H (7-18) mg/dL Creatinine 1.3 (0.7-1.3) mg/dL Est Cr Clr Drug Dosing 49.91 mL/min Estimated GFR (MDRD) 54 (>60) mL/min BUN/Creatinine Ratio 15.4 (14-18) Glucose 182 H (83-115) mg/dL POC Glucose 174 H (83-110) mg/dL Calcium 8.2 L (8.5-10.1) mg/dL Magnesium 1.1 L (1.8-2.4) mg/dl Med Orders - Current: Current Medications Aspirin (Ecotrin) 325 mg PO BID [facility] Last Admin: 11/20/18 09:15 Dose: 325 mg Bisacodyl (Dulcolax) 5 mg PO DAILY PRN PRN Reason: Constipation Cyclobenzaprine HCl (Flexeril) 10 mg PO BID PRN PRN Reason: Spasms Last Admin: 11/19/18 14:58 Dose: 10 mg Docusate Sodium (Colace) 100 mg PO BID [facility] Last Admin: 11/20/18 09:15 Dose: 100 mg Famotidine (Pepcid) 20 mg PO Q12H [facility] Last Admin: 11/20/18 09:14 Dose: 20 mg Magnesium Sulfate 4 gm/ Premix 50 mls @ 12.5 mls/hr IV ONETIME ONE Stop: 11/20/18 13:44 Last Admin: 11/20/18 10:10 Dose: 12.5 mls/hr Potassium Chloride 10 meq/ (Premix) 100 mls @ 100 mls/hr IV Q1H [facility] Stop: 11/20/18 13:44 Last Admin: 11/20/18 10:12 Dose: 100 mls/hr Sodium Chloride (Normal Saline) 1,000 mls @ 50 mls/hr IV ASDIRECTED PRN PRN Reason: ONLY DURING MAG AND POTAS INFU Insulin Glargine (Lantus) 40 unit SUBCUT QAM [facility] Last Admin: 11/20/18 09:15 Dose: 40 units Insulin Human Lispro (Humalog) 0 unit SUBCUT QIDACANDBED [facility]; Protocol Last Admin: 11/20/18 09:14 Dose: 1 units Ketorolac Tromethamine (Toradol) 15 mg IVPUSH Q6H PRN PRN Reason: Pain Last Admin: 11/19/18 03:54 Dose: 15 mg Magnesium Hydroxide (Milk Of Magnesia) 30 ml PO BID PRN PRN Reason: Constipation Magnesium Oxide (Magnesium Oxide) 400 mg PO BID [facility] Last Admin: 11/20/18 10:06 Dose: 400 mg Miscellaneous Information (Remove Patch) 1 ea TRDERM Q72H [facility] Mometasone Furoate/Formoterol Fumar (Dulera 200-5 Mcg) 2 puff IH BID [facility] Last Admin: 11/20/18 09:32 Dose: 2 puff Morphine Sulfate (Morphine) 2 mg IVPUSH Q2H PRN PRN Reason: Breakthrough Pain Last Admin: 11/20/18 10:03 Dose: 2 mg Naloxone HCl (Narcan) 0.1 mg IVPUSH Q5M PRN PRN Reason: Oversedation Ondansetron HCl (Zofran) 4 mg IVPUSH Q6H PRN PRN Reason: Nausea/Vomiting Last Admin: 11/18/18 14:32 Dose: 4 mg Oxycodone HCl (Oxycodone) 5 mg PO Q6H PRN PRN Reason: severe pain Oxycodone/Acetaminophen (Percocet 325-5 Mg) 1 - 2 tab PO Q4H PRN PRN Reason: Pain Last Admin: 11/20/18 09:14 Dose: 2 tab Potassium Chloride (Klor-Con M20) 20 meq PO BID [facility] Last Admin: 11/20/18 10:06 Dose: 20 meq Prochlorperazine Edisylate (Compazine) 10 mg IVPUSH Q6H PRN PRN Reason: NAUSEA/VOMITING Last Admin: 11/18/18 17:37 Dose: 10 mg Scopolamine (Transderm-Scop) 1.5 mg TRDERM Q72H PRN PRN Reason: Nausea Last Admin: 11/18/18 15:32 Dose: 1.5 mg Senna (Senna) 8.6 mg PO BID PRN PRN Reason: Constipation Discontinued Medications Acetaminophen (Tylenol) 975 mg PO ONETIME [facility] Stop: 11/18/18 16:00 Last Admin: 11/18/18 10:15 Dose: 975 mg Bupivacaine HCl (Marcaine 0.25%) Confirm Administered Dose 30 ml .ROUTE .STK- MED ONE Stop: 11/18/18 10:29 Last Admin: 11/18/18 13:01 Dose: 30 ml Cefazolin Sodium (Ancef) Confirm Administered Dose 2 gm .ROUTE .STK-MED ONE Stop: 11/18/18 10:29 Last Admin: 11/18/18 12:55 Dose: 2 gm Cefazolin Sodium (Ancef) Confirm Administered Dose 2 gm .ROUTE .STK-MED ONE Stop: 11/18/18 11:55 Morphine Sulfate 8 mg/Epinephrine HCl 0.3 mg/Cefuroxime Sodium 750 mg/Ketorolac Tromethamine 30 mg/Sodium Chloride 27.9 ml 0 mg .XX ONETIME ONE Stop: 11/18/18 07:31 Last Admin: 11/18/18 13:00 Dose: 788.3 mg Diphenhydramine HCl (Benadryl) 25 mg IVPUSH Q6H PRN PRN Reason: pruritis Stop: 11/18/18 20:00 Epinephrine HCl (Adrenalin) Confirm Administered Dose 1 mg .ROUTE .STK-MED ONE Stop: 11/18/18 09:31 Fentanyl (Sublimaze) Confirm Administered Dose 100 mcg .ROUTE .STK-MED ONE Stop: 11/18/18 11:44 Fentanyl (Sublimaze) 50 mcg IVPUSH Q5M PRN PRN Reason: Pain Stop: 11/18/18 20:00 Lactated Ringer's (Ringers, Lactated) 1,000 mls @ 125 mls/hr IV ASDIRECTED [facility] Stop: 11/18/18 18:00 Last Admin: 11/18/18 09:50 Dose: 125 mls/hr Cefazolin Sodium/Dextrose 2 gm (/ Premix) 50 mls @ 100 mls/hr IV Q8H [facility] Stop: 11/19/18 12:29 Last Admin: 11/19/18 12:52 Dose: 100 mls/hr Lidocaine HCl (Xylocaine-Mpf 1%) Confirm Administered Dose 4 mls @ as directed .ROUTE .STK-MED ONE Stop: 11/18/18 11:44 Lactated Ringer's (Ringers, Lactated) Confirm Administered Dose 1,000 mls @ as directed .ROUTE .STK-MED ONE Stop: 11/18/18 12:01 Prochlorperazine Edisylate 10 (mg/ Sodium Chloride) 52 mls @ 150 mls/hr IV Q6H PRN PRN Reason: Nausea/Vomiting Sodium Chloride (Normal Saline) 500 mls @ 999 mls/hr IV .BOLUS ONE Stop: 11/19/18 07:10 Last Admin: 11/19/18 08:37 Dose: 999 mls/hr Sodium Chloride (Normal Saline) 1,000 mls @ 50 mls/hr IV ASDIRECTED [facility] Last Admin: 11/20/18 10:03 Dose: 50 mls/hr [facility]ulin [facility]us) [facility] [place] [facility] Admin: 11/19/18 08:39 Dose: 20 units Iodine (Iodine 2% Mild Tincture) Confirm Administered Dose 30 ml .ROUTE .STK- MED ONE Stop: 11/18/18 10:29 Last Admin: 11/18/18 12:54 Dose: 18 ml Ketamine HCl (Ketalar) Confirm Administered Dose 500 mg .ROUTE .STK-MED ONE Stop: 11/18/18 11:05 Lidocaine/Sodium Bicarbonate (Buffered Lidocaine 1% In Ns 8.4%) 0.25 ml IDERM ONETIME PRN PRN Reason: Prior to IV Start Stop: 11/18/18 18:00 Last Admin: 11/18/18 09:50 Dose: 0.25 ml Ondansetron HCl (Zofran) 4 mg IVPUSH ONETIME PRN PRN Reason: Nausea/Vomiting Stop: 11/18/18 20:00 Oxycodone HCl (Oxycontin) 10 mg PO ONETIME [facility] Stop: 11/18/18 16:00 Last Admin: 11/18/18 10:15 Dose: 10 mg Pregabalin (Lyrica) 50 mg PO ONETIME [facility] Stop: 11/18/18 16:00 Last Admin: 11/18/18 10:15 Dose: 50 mg Propofol (Diprivan 20 Ml) Confirm Administered Dose 200 mg .ROUTE .STK-MED ONE Stop: 11/18/18 11:43 Propofol (Diprivan 20 Ml) Confirm Administered Dose 200 mg .ROUTE .STK-MED ONE Stop: 11/18/18 12:24 Propofol (Diprivan 20 Ml) Confirm Administered Dose 200 mg .ROUTE .STK-MED ONE Stop: 11/18/18 13:03 Ropivacaine (Naropin 0.5%) Confirm Administered Dose 30 ml .ROUTE .STK-MED ONE Stop: 11/18/18 09:31 Sodium Chloride (Saline Flush) 10 ml FLUSH ASDIRECTED PRN PRN Reason: Keep Vein Open Stop: 11/18/18 18:00 Tranexamic Acid (Cyklokapron) Confirm Administered Dose 1,000 mg .ROUTE .STK- MED ONE Stop: 11/18/18 10:29 Last Admin: 11/18/18 13:08 Dose: 1,000 mg Vancomycin HCl (Vancomycin) Confirm Administered Dose 1 gm .ROUTE .STK-MED ONE Stop: 11/18/18 10:29 Last Admin: 11/18/18 13:03 Dose: 1 gm - Exam Wound/Incisions: Dressing Dry and Intact General: Alert, Cooperative, No Acute Distress Lungs: Normal Respiratory Effort Extremities: Other (NVS intact for RLE. Mani's negative.) - Problem List Review Problem List Initiated/Reviewed/Updated: Yes - My Orders Last 24 Hours: Active Orders 24 hr Category Date Time Status Consult to Case Management/Center Human Resources Manager [CONS] Cons 11/19/18 10:47 Active Routine BASIC METABOLIC PANEL,BMP [CHEM] AM Lab 11/21/18 05:11 Ordered BASIC METABOLIC PANEL,BMP [CHEM] AM Lab 11/22/18 05:11 Ordered BASIC METABOLIC PANEL,BMP [CHEM] AM Lab 11/23/18 05:11 Ordered CBC WITH AUTO DIFF [HEME] AM Lab 11/21/18 05:11 Ordered CBC WITH AUTO DIFF [HEME] AM Lab 11/22/18 05:11 Ordered CBC WITH AUTO DIFF [HEME] AM Lab 11/23/18 05:11 Ordered MAGNESIUM [CHEM] AM Lab 11/21/18 05:11 Ordered MAGNESIUM [CHEM] AM Lab 11/22/18 05:11 Ordered MAGNESIUM [CHEM] AM Lab 11/23/18 05:11 Ordered Insulin Glarg,Human.Rec.Analog [LantUS] Med 11/20/18 08:00 Active 40 unit SUBCUT QAM Magnesium Oxide Med 11/20/18 10:00 Active 400 mg PO BID Magnesium Sulfate/Water [Magnesium Sulfate in Water Med 11/20/18 09:45 Active Premix] 4 gm Premix Bag 1 bag IV ONETIME Potassium Chloride [KCl 10 MEQ in Water 100 ML] 10 meq Med 11/20/18 09:45 Active Premix Bag 1 bag IV Q1H Potassium Chloride [Klor-Con M20] Med 11/20/18 10:00 Active 20 meq PO BID Remove Patch Med 11/21/18 15:00 Active 1 ea TRDERM Q72H Sodium Chloride 0.9% [Normal Saline] 1,000 ml Med 11/20/18 10:30 Active IV ASDIRECTED oxyCODONE Med 11/20/18 10:46 Active 5 mg PO Q6H PRN Medication Orders Aspirin (Ecotrin) 325 mg PO BID [facility] Last Admin: 11/20/18 09:15 Dose: 325 mg Admin: 11/19/18 22:39 Dose: 325 mg Admin: 11/19/18 08:40 Dose: 325 mg Bisacodyl (Dulcolax) 5 mg PO DAILY PRN PRN Reason: Constipation Cyclobenzaprine HCl (Flexeril) 10 mg PO BID PRN PRN Reason: Spasms Last Admin: 11/19/18 14:58 Dose: 10 mg Docusate Sodium (Colace) 100 mg PO BID [facility] Last Admin: 11/20/18 09:15 Dose: 100 mg Admin: 11/19/18 22:39 Dose: 100 mg Admin: 11/19/18 08:40 Dose: 100 mg Admin: 11/18/18 21:41 Dose: 100 mg Famotidine (Pepcid) 20 mg PO Q12H [facility] Last Admin: 11/20/18 09:14 Dose: 20 mg Admin: 11/19/18 22:39 Dose: 20 mg Admin: 11/19/18 08:40 Dose: 20 mg Admin: 11/18/18 21:41 Dose: 20 mg Magnesium Sulfate 4 gm/ Premix 50 mls @ 12.5 mls/hr IV ONETIME ONE Stop: 11/20/18 13:44 Last Admin: 11/20/18 10:10 Dose: 12.5 mls/hr Potassium Chloride 10 meq/ (Premix) 100 mls @ 100 mls/hr IV Q1H [facility] Stop: 11/20/18 13:44 Last Admin: 11/20/18 10:12 Dose: 100 mls/hr Sodium Chloride (Normal Saline) 1,000 mls @ 50 mls/hr IV ASDIRECTED PRN PRN Reason: ONLY DURING MAG AND POTAS INFU Insulin Glargine (Lantus) 40 unit SUBCUT QAM [facility] Last Admin: 11/20/18 09:15 Dose: 40 units Insulin Human Lispro (Humalog) 0 unit SUBCUT QIDACANDBED [facility]; Protocol Last Admin: 11/20/18 09:14 Dose: 1 units Admin: 11/19/18 22:40 Dose: 2 units Admin: 11/19/18 18:24 Dose: 1 units Admin: 11/19/18 12:55 Dose: 2 units Admin: 11/19/18 08:39 Dose: 1 units Admin: 11/18/18 21:30 Dose: 1 units Admin: 11/18/18 17:11 Dose: 1 units Ketorolac Tromethamine (Toradol) 15 mg IVPUSH Q6H PRN PRN Reason: Pain Last Admin: 11/19/18 03:54 Dose: 15 mg Admin: 11/18/18 21:33 Dose: 15 mg Magnesium Hydroxide (Milk Of Magnesia) 30 ml PO BID PRN PRN Reason: Constipation Magnesium Oxide (Magnesium Oxide) 400 mg PO BID [facility] Last Admin: 11/20/18 10:06 Dose: 400 mg Miscellaneous Information (Remove Patch) 1 ea TRDERM Q72H [facility] Mometasone Furoate/Formoterol Fumar (Dulera 200-5 Mcg) 2 puff IH BID [facility] Last Admin: 11/20/18 09:32 Dose: 2 puff Admin: 11/19/18 20:28 Dose: 2 puff Admin: 11/19/18 12:57 Dose: Morphine Sulfate (Morphine) 2 mg IVPUSH Q2H PRN PRN Reason: Breakthrough Pain Last Admin: 11/20/18 10:03 Dose: 2 mg Admin: 11/19/18 19:15 Dose: 2 mg Naloxone HCl (Narcan) 0.1 mg IVPUSH Q5M PRN PRN Reason: Oversedation Ondansetron HCl (Zofran) 4 mg IVPUSH Q6H PRN PRN Reason: Nausea/Vomiting Last Admin: 11/18/18 14:32 Dose: 4 mg Oxycodone HCl (Oxycodone) 5 mg PO Q6H PRN PRN Reason: severe pain Oxycodone/Acetaminophen (Percocet 325-5 Mg) 1 - 2 tab PO Q4H PRN PRN Reason: Pain Last Admin: 11/20/18 09:14 Dose: 2 tab Admin: 11/20/18 03:50 Dose: 2 tab Admin: 11/19/18 18:27 Dose: 2 tab Admin: 11/19/18 12:51 Dose: 2 tab Admin: 11/19/18 08:41 Dose: 2 tab Admin: 11/18/18 17:41 Dose: 2 tab Potassium Chloride (Klor-Con M20) 20 meq PO BID [facility] Last Admin: 11/20/18 10:06 Dose: 20 meq Prochlorperazine Edisylate (Compazine) 10 mg IVPUSH Q6H PRN PRN Reason: NAUSEA/VOMITING Last Admin: 11/18/18 17:37 Dose: 10 mg Scopolamine (Transderm-Scop) 1.5 mg TRDERM Q72H PRN PRN Reason: Nausea Last Admin: 11/18/18 15:32 Dose: 1.5 mg Senna (Senna) 8.6 mg PO BID PRN PRN Reason: Constipation - Assessment Assessment (Free Text/Narrative):: POD#1 - s/p right TKA - Plan Plan (Free Text/Narrative):: 1. The pt will be unable to discharge to home today due to limited mobility. 2. Continue with PT and OT and progress with mobility as able. 3. Suspect discharge to [facility] for continued rehab on 11-22-2018. 4. Medical management per Hospitalist service. 5. 325mg ASA PO BID, frequent mobility, TEDs, SCDs. The pt's case was discussed with Dr. Sevilla.
--- NOTE | 2018-11-20 11:05 | PCM.SURGPN ---
- General Info Date of Service: 11/20/18 POD#: 2 Functional Status: Reports: Tolerating Diet, Urinating, Incentive Spirometry, Other (The pt states he has ambulated to the door of his room with therapy.) - Patient Data Vitals - Most Recent: Last Vital Signs Temp 97.3 F 11/20/18 08:59 Pulse 73 11/20/18 08:59 Resp 14 11/20/18 08:59 BP 106/65 11/20/18 08:59 Pulse Ox 97 11/20/18 09:33 Weight - Most Recent: 207 lb 14.4 oz I&O - Last 24 Hours: Intake & Output 11/19/18 11/20/18 11/20/18 22:59 06:59 14:59 Intake Total 1660 800 Output Total 1450 Balance 1660 -650 Lab Results Last 24 Hrs: Laboratory Results - last 24 hr 11/19/18 11/19/18 11/19/18 Range/Units 11:43 16:54 20:48 WBC (4.23-9.07) K/mm3 RBC (4.63-6.08) M/mm3 Hgb (13.7-17.5) gm/L Hct (40.1-51.0) % MCV (79.0-92.2) fl MCH (25.7-32.2) pg MCHC (32.2-35.5) g/dl RDW Std Deviation (35.1-43.9) fL Plt Count (163-337) K/mm3 MPV (9.4-12.3) fl Neut % (Auto) (34.0-67.9) % Lymph % (Auto) (21.8-53.1) % [place] % (Auto) (5.3-12.2) % Eos % (Auto) (0.8-7.0) Baso % (Auto) (0.1-1.2) % Neut # (Auto) (1.78-5.38) K/mm3 Lymph # (Auto) (1.32-3.57) K/mm3 [place] # (Auto) (0.30-0.82) K/mm3 Eos # (Auto) (0.04-0.54) K/mm3 Baso # (Auto) (0.01-0.08) K/mm3 Sodium (136-145) mEq/L Potassium (3.5-5.1) mEq/L Chloride (98-107) mEq/L Carbon Dioxide (21-32) mEq/L Anion Gap (5-15) BUN (7-18) mg/dL Creatinine (0.7-1.3) mg/dL Est Cr Clr Drug Dosing mL/min Estimated GFR (MDRD) (>60) mL/min BUN/Creatinine Ratio (14-18) Glucose (83-115) mg/dL POC Glucose 204 H 187 H 201 H (83-110) mg/dL Calcium (8.5-10.1) mg/dL Magnesium (1.8-2.4) mg/dl 11/20/18 11/20/18 11/20/18 Range/Units 04:31 04:31 06:59 WBC 7.81 (4.23-9.07) K/mm3 RBC 3.74 L (4.63-6.08) M/mm3 Hgb 11.6 L (13.7-17.5) gm/L Hct 33.8 L (40.1-51.0) % MCV 90.4 (79.0-92.2) fl MCH 31.0 (25.7-32.2) pg MCHC 34.3 (32.2-35.5) g/dl RDW Std Deviation 41.5 (35.1-43.9) fL Plt Count 189 (163-337) K/mm3 MPV 10.5 (9.4-12.3) fl Neut % (Auto) 72.1 H (34.0-67.9) % Lymph % (Auto) 12.7 L (21.8-53.1) % [place] % (Auto) 11.5 (5.3-12.2) % Eos % (Auto) 3.3 (0.8-7.0) Baso % (Auto) 0.1 (0.1-1.2) % Neut # (Auto) 5.63 H (1.78-5.38) K/mm3 Lymph # (Auto) 0.99 L (1.32-3.57) K/mm3 [place] # (Auto) 0.90 H (0.30-0.82) K/mm3 Eos # (Auto) 0.26 (0.04-0.54) K/mm3 Baso # (Auto) 0.01 (0.01-0.08) K/mm3 Sodium 136 (136-145) mEq/L Potassium 2.7 L (3.5-5.1) mEq/L Chloride 99 (98-107) mEq/L Carbon Dioxide 29 (21-32) mEq/L Anion Gap 10.7 (5-15) BUN 20 H (7-18) mg/dL Creatinine 1.3 (0.7-1.3) mg/dL Est Cr Clr Drug Dosing 49.91 mL/min Estimated GFR (MDRD) 54 (>60) mL/min BUN/Creatinine Ratio 15.4 (14-18) Glucose 182 H (83-115) mg/dL POC Glucose 174 H (83-110) mg/dL Calcium 8.2 L (8.5-10.1) mg/dL Magnesium 1.1 L (1.8-2.4) mg/dl Med Orders - Current: Current Medications Aspirin (Ecotrin) 325 mg PO BID [facility] [place] Last Admin: 11/20/18 09:15 Dose: 325 mg Bisacodyl (Dulcolax) 5 mg PO DAILY PRN PRN Reason: Constipation Cyclobenzaprine HCl (Flexeril) 10 mg PO BID PRN PRN Reason: Spasms Last Admin: 11/19/18 14:58 Dose: 10 mg Docusate Sodium (Colace) 100 mg PO BID [facility] [place] Last Admin: 11/20/18 09:15 Dose: 100 mg Famotidine (Pepcid) 20 mg PO Q12H [facility] [place] Last Admin: 11/20/18 09:14 Dose: 20 mg Magnesium Sulfate 4 gm/ Premix 50 mls @ 12.5 mls/hr IV ONETIME ONE Stop: 11/20/18 13:44 Last Admin: 11/20/18 10:10 Dose: 12.5 mls/hr Potassium Chloride 10 meq/ (Premix) 100 mls @ 100 mls/hr IV Q1H [facility] [place] Stop: 11/20/18 13:44 Last Admin: 11/20/18 10:12 Dose: 100 mls/hr Sodium Chloride (Normal Saline) 1,000 mls @ 50 mls/hr IV ASDIRECTED PRN PRN Reason: ONLY DURING MAG AND POTAS INFU Insulin Glargine (Lantus) 40 unit SUBCUT QAM [facility] [place] Last Admin: 11/20/18 09:15 Dose: 40 units Insulin Human Lispro (Humalog) 0 unit SUBCUT QIDACANDBED [facility] [place]; Protocol Last Admin: 11/20/18 09:14 Dose: 1 units Ketorolac Tromethamine (Toradol) 15 mg IVPUSH Q6H PRN PRN Reason: Pain Last Admin: 11/19/18 03:54 Dose: 15 mg Magnesium Hydroxide (Milk Of Magnesia) 30 ml PO BID PRN PRN Reason: Constipation Magnesium Oxide (Magnesium Oxide) 400 mg PO BID [facility] [place] Last Admin: 11/20/18 10:06 Dose: 400 mg Miscellaneous Information (Remove Patch) 1 ea TRDERM Q72H [facility] [place] Mometasone Furoate/Formoterol Fumar (Dulera 200-5 Mcg) 2 puff IH BID [facility] [place] Last Admin: 11/20/18 09:32 Dose: 2 puff Morphine Sulfate (Morphine) 2 mg IVPUSH Q2H PRN PRN Reason: Breakthrough Pain Last Admin: 11/20/18 10:03 Dose: 2 mg Naloxone HCl (Narcan) 0.1 mg IVPUSH Q5M PRN PRN Reason: Oversedation Ondansetron HCl (Zofran) 4 mg IVPUSH Q6H PRN PRN Reason: Nausea/Vomiting Last Admin: 11/18/18 14:32 Dose: 4 mg Oxycodone HCl (Oxycodone) 5 mg PO Q6H PRN PRN Reason: severe pain Oxycodone/Acetaminophen (Percocet 325-5 Mg) 1 - 2 tab PO Q4H PRN PRN Reason: Pain Last Admin: 11/20/18 09:14 Dose: 2 tab Potassium Chloride (Klor-Con M20) 20 meq PO BID [facility] [place] Last Admin: 11/20/18 10:06 Dose: 20 meq Prochlorperazine Edisylate (Compazine) 10 mg IVPUSH Q6H PRN PRN Reason: NAUSEA/VOMITING Last Admin: 11/18/18 17:37 Dose: 10 mg Scopolamine (Transderm-Scop) 1.5 mg TRDERM Q72H PRN PRN Reason: Nausea Last Admin: 11/18/18 15:32 Dose: 1.5 mg Senna (Senna) 8.6 mg PO BID PRN PRN Reason: Constipation Discontinued Medications Acetaminophen (Tylenol) 975 mg PO ONETIME [facility] [place] Stop: 11/18/18 16:00 Last Admin: 11/18/18 10:15 Dose: 975 mg Bupivacaine HCl (Marcaine 0.25%) Confirm Administered Dose 30 ml .ROUTE .STK- MED ONE Stop: 11/18/18 10:29 Last Admin: 11/18/18 13:01 Dose: 30 ml Cefazolin Sodium (Ancef) Confirm Administered Dose 2 gm .ROUTE .STK-MED ONE Stop: 11/18/18 10:29 Last Admin: 11/18/18 12:55 Dose: 2 gm Cefazolin Sodium (Ancef) Confirm Administered Dose 2 gm .ROUTE .STK-MED ONE Stop: 11/18/18 11:55 Morphine Sulfate 8 mg/Epinephrine HCl 0.3 mg/Cefuroxime Sodium 750 mg/Ketorolac Tromethamine 30 mg/Sodium Chloride 27.9 ml 0 mg .XX ONETIME ONE Stop: 11/18/18 07:31 Last Admin: 11/18/18 13:00 Dose: 788.3 mg Diphenhydramine HCl (Benadryl) 25 mg IVPUSH Q6H PRN PRN Reason: pruritis Stop: 11/18/18 20:00 Epinephrine HCl (Adrenalin) Confirm Administered Dose 1 mg .ROUTE .STK-MED ONE Stop: 11/18/18 09:31 Fentanyl (Sublimaze) Confirm Administered Dose 100 mcg .ROUTE .STK-MED ONE Stop: 11/18/18 11:44 Fentanyl (Sublimaze) 50 mcg IVPUSH Q5M PRN PRN Reason: Pain Stop: 11/18/18 20:00 Lactated Ringer's (Ringers, Lactated) 1,000 mls @ 125 mls/hr IV ASDIRECTED [facility] Stop: 11/18/18 18:00 Last Admin: 11/18/18 09:50 Dose: 125 mls/hr Cefazolin Sodium/Dextrose 2 gm (/ Premix) 50 mls @ 100 mls/hr IV Q8H [facility] Stop: 11/19/18 12:29 Last Admin: 11/19/18 12:52 Dose: 100 mls/hr Lidocaine HCl (Xylocaine-Mpf 1%) Confirm Administered Dose 4 mls @ as directed .ROUTE .STK-MED ONE Stop: 11/18/18 11:44 Lactated Ringer's (Ringers, Lactated) Confirm Administered Dose 1,000 mls @ as directed .ROUTE .STK-MED ONE Stop: 11/18/18 12:01 Prochlorperazine Edisylate 10 (mg/ Sodium Chloride) 52 mls @ 150 mls/hr IV Q6H PRN PRN Reason: Nausea/Vomiting Sodium Chloride (Normal Saline) 500 mls @ 999 mls/hr IV .BOLUS ONE Stop: 11/19/18 07:10 Last Admin: 11/19/18 08:37 Dose: 999 mls/hr Sodium Chloride (Normal Saline) 1,000 mls @ 50 mls/hr IV ASDIRECTED [facility] [place] Last Admin: 11/20/18 10:03 Dose: 50 mls/hr [facility]ulin [facility] ([facility]us) [facility] [place] Admin: 11/19/18 08:39 Dose: 20 units Iodine (Iodine 2% Mild Tincture) Confirm Administered Dose 30 ml .ROUTE .STK- MED ONE Stop: 11/18/18 10:29 Last Admin: 11/18/18 12:54 Dose: 18 ml Ketamine HCl (Ketalar) Confirm Administered Dose 500 mg .ROUTE .STK-MED ONE Stop: 11/18/18 11:05 Lidocaine/Sodium Bicarbonate (Buffered Lidocaine 1% In Ns 8.4%) 0.25 ml IDERM ONETIME PRN PRN Reason: Prior to IV Start Stop: 11/18/18 18:00 Last Admin: 11/18/18 09:50 Dose: 0.25 ml Ondansetron HCl (Zofran) 4 mg IVPUSH ONETIME PRN PRN Reason: Nausea/Vomiting Stop: 11/18/18 20:00 Oxycodone HCl (Oxycontin) 10 mg PO ONETIME [facility] [place] Stop: 11/18/18 16:00 Last Admin: 11/18/18 10:15 Dose: 10 mg Pregabalin (Lyrica) 50 mg PO ONETIME [facility] Stop: 11/18/18 16:00 Last Admin: 11/18/18 10:15 Dose: 50 mg Propofol (Diprivan 20 Ml) Confirm Administered Dose 200 mg .ROUTE .STK-MED ONE Stop: 11/18/18 11:43 Propofol (Diprivan 20 Ml) Confirm Administered Dose 200 mg .ROUTE .STK-MED ONE Stop: 11/18/18 12:24 Propofol (Diprivan 20 Ml) Confirm Administered Dose 200 mg .ROUTE .STK-MED ONE Stop: 11/18/18 13:03 Ropivacaine (Naropin 0.5%) Confirm Administered Dose 30 ml .ROUTE .STK-MED ONE Stop: 11/18/18 09:31 Sodium Chloride (Saline Flush) 10 ml FLUSH ASDIRECTED PRN PRN Reason: Keep Vein Open Stop: 11/18/18 18:00 Tranexamic Acid (Cyklokapron) Confirm Administered Dose 1,000 mg .ROUTE .STK- MED ONE Stop: 11/18/18 10:29 Last Admin: 11/18/18 13:08 Dose: 1,000 mg Vancomycin HCl (Vancomycin) Confirm Administered Dose 1 gm .ROUTE .STK-MED ONE Stop: 11/18/18 10:29 Last Admin: 11/18/18 13:03 Dose: 1 gm - Exam Wound/Incisions: Dressing Dry and Intact General: Alert, Cooperative, No Acute Distress Lungs: Normal Respiratory Effort Extremities: Other (Min tenderness right quad. Mani's negative. NVS intact for RLE.) - Problem List Review Problem List Initiated/Reviewed/Updated: Yes - My Orders Last 24 Hours: Active Orders 24 hr Category Date Time Status Consult to Case Management/Anodizer [CONS] Cons 11/19/18 10:47 Active Routine BASIC METABOLIC PANEL,BMP [CHEM] AM Lab 11/21/18 05:11 Ordered BASIC METABOLIC PANEL,BMP [CHEM] AM Lab 11/22/18 05:11 Ordered BASIC METABOLIC PANEL,BMP [CHEM] AM Lab 11/23/18 05:11 Ordered CBC WITH AUTO DIFF [HEME] AM Lab 11/21/18 05:11 Ordered CBC WITH AUTO DIFF [HEME] AM Lab 11/22/18 05:11 Ordered CBC WITH AUTO DIFF [HEME] AM Lab 11/23/18 05:11 Ordered MAGNESIUM [CHEM] AM Lab 11/21/18 05:11 Ordered MAGNESIUM [CHEM] AM Lab 11/22/18 05:11 Ordered MAGNESIUM [CHEM] AM Lab 11/23/18 05:11 Ordered Insulin Glarg,Human.Rec.Analog [LantUS] Med 11/20/18 08:00 Active 40 unit SUBCUT QAM Magnesium Oxide Med 11/20/18 10:00 Active 400 mg PO BID Magnesium Sulfate/Water [Magnesium Sulfate in Water Med 11/20/18 09:45 Active Premix] 4 gm Premix Bag 1 bag IV ONETIME Potassium Chloride [KCl 10 MEQ in Water 100 ML] 10 meq Med 11/20/18 09:45 Active Premix Bag 1 bag IV Q1H Potassium Chloride [Klor-Con M20] Med 11/20/18 10:00 Active 20 meq PO BID Remove Patch Med 11/21/18 15:00 Active 1 ea TRDERM Q72H Sodium Chloride 0.9% [Normal Saline] 1,000 ml Med 11/20/18 10:30 Active IV ASDIRECTED oxyCODONE Med 11/20/18 10:46 Active 5 mg PO Q6H PRN Medication Orders Aspirin (Ecotrin) 325 mg PO BID [facility] [place] Last Admin: 11/20/18 09:15 Dose: 325 mg Admin: 11/19/18 22:39 Dose: 325 mg Admin: 11/19/18 08:40 Dose: 325 mg Bisacodyl (Dulcolax) 5 mg PO DAILY PRN PRN Reason: Constipation Cyclobenzaprine HCl (Flexeril) 10 mg PO BID PRN PRN Reason: Spasms Last Admin: 11/19/18 14:58 Dose: 10 mg Docusate Sodium (Colace) 100 mg PO BID [facility] [place] Last Admin: 11/20/18 09:15 Dose: 100 mg Admin: 11/19/18 22:39 Dose: 100 mg Admin: 11/19/18 08:40 Dose: 100 mg Admin: 11/18/18 21:41 Dose: 100 mg Famotidine (Pepcid) 20 mg PO Q12H [facility] [place] Last Admin: 11/20/18 09:14 Dose: 20 mg Admin: 11/19/18 22:39 Dose: 20 mg Admin: 11/19/18 08:40 Dose: 20 mg Admin: 11/18/18 21:41 Dose: 20 mg Magnesium Sulfate 4 gm/ Premix 50 mls @ 12.5 mls/hr IV ONETIME ONE Stop: 11/20/18 13:44 Last Admin: 11/20/18 10:10 Dose: 12.5 mls/hr Potassium Chloride 10 meq/ (Premix) 100 mls @ 100 mls/hr IV Q1H [facility] [place] Stop: 11/20/18 13:44 Last Admin: 11/20/18 10:12 Dose: 100 mls/hr Sodium Chloride (Normal Saline) 1,000 mls @ 50 mls/hr IV ASDIRECTED PRN PRN Reason: ONLY DURING MAG AND POTAS INFU Insulin Glargine (Lantus) 40 unit SUBCUT QAM [facility] [place] Last Admin: 11/20/18 09:15 Dose: 40 units Insulin Human Lispro (Humalog) 0 unit SUBCUT QIDACANDBED [facility] [place]; Protocol Last Admin: 11/20/18 09:14 Dose: 1 units Admin: 11/19/18 22:40 Dose: 2 units Admin: 11/19/18 18:24 Dose: 1 units Admin: 11/19/18 12:55 Dose: 2 units Admin: 11/19/18 08:39 Dose: 1 units Admin: 11/18/18 21:30 Dose: 1 units Admin: 11/18/18 17:11 Dose: 1 units Ketorolac Tromethamine (Toradol) 15 mg IVPUSH Q6H PRN PRN Reason: Pain Last Admin: 11/19/18 03:54 Dose: 15 mg Admin: 11/18/18 21:33 Dose: 15 mg Magnesium Hydroxide (Milk Of Magnesia) 30 ml PO BID PRN PRN Reason: Constipation Magnesium Oxide (Magnesium Oxide) 400 mg PO BID [facility] [place] Last Admin: 11/20/18 10:06 Dose: 400 mg Miscellaneous Information (Remove Patch) 1 ea TRDERM Q72H [facility] [place] Mometasone Furoate/Formoterol Fumar (Dulera 200-5 Mcg) 2 puff IH BID [facility] [place] Last Admin: 11/20/18 09:32 Dose: 2 puff Admin: 11/19/18 20:28 Dose: 2 puff Admin: 11/19/18 12:57 Dose: Morphine Sulfate (Morphine) 2 mg IVPUSH Q2H PRN PRN Reason: Breakthrough Pain Last Admin: 11/20/18 10:03 Dose: 2 mg Admin: 11/19/18 19:15 Dose: 2 mg Naloxone HCl (Narcan) 0.1 mg IVPUSH Q5M PRN PRN Reason: Oversedation Ondansetron HCl (Zofran) 4 mg IVPUSH Q6H PRN PRN Reason: Nausea/Vomiting Last Admin: 11/18/18 14:32 Dose: 4 mg Oxycodone HCl (Oxycodone) 5 mg PO Q6H PRN PRN Reason: severe pain Oxycodone/Acetaminophen (Percocet 325-5 Mg) 1 - 2 tab PO Q4H PRN PRN Reason: Pain Last Admin: 11/20/18 09:14 Dose: 2 tab Admin: 11/20/18 03:50 Dose: 2 tab Admin: 11/19/18 18:27 Dose: 2 tab Admin: 11/19/18 12:51 Dose: 2 tab Admin: 11/19/18 08:41 Dose: 2 tab Admin: 11/18/18 17:41 Dose: 2 tab Potassium Chloride (Klor-Con M20) 20 meq PO BID [facility] Last Admin: 11/20/18 10:06 Dose: 20 meq Prochlorperazine Edisylate (Compazine) 10 mg IVPUSH Q6H PRN PRN Reason: NAUSEA/VOMITING Last Admin: 11/18/18 17:37 Dose: 10 mg Scopolamine (Transderm-Scop) 1.5 mg TRDERM Q72H PRN PRN Reason: Nausea Last Admin: 11/18/18 15:32 Dose: 1.5 mg Senna (Senna) 8.6 mg PO BID PRN PRN Reason: Constipation - Assessment Assessment (Free Text/Narrative):: POD#2 - s/p right TKA - Plan Plan (Free Text/Narrative):: 1. The pt will remain in Hospital for > 96 hours continued monitoring and therapy participation and while awaiting [facility] placement. 2. Suspect discharge to [place] or [facility] 11-22-2018. 3. Will add oxycodone 5mg PO q 6 hours PRN severe pain. 4. Hgb 11.6. 5. Medical management per Hospitalist service. The pt's blood sugars are being monitored. The pt's case has been discussed with Dr. Sevilla.
--- NOTE | 2018-11-20 13:02 | PCM.CONSN ---
- General Info Date of Service: 11/20/18 Admission Dx/Problem (Free Text): Admission Diagnosis/Problem Admission Diagnosis/Problem Osteoarthritis of knee Subjective Update: 11/19/18: In to see Abel. He has been a 2 assist this AM. PT/OT is still unsure of how he will do at home. He will likely need to stay at least tonight. Unfortunately he was nauseated and dry heaving yesterday evening for most of the day. This limited his oral intake. His creatinine was elevated this AM and his GFR has decreased. 500mL fluid bolus given with 100mL NS thereafter until 1L is infused. He has been eating well today thus far. Repeat labs will be ordered tomorrow to re-check kidney function. We will monitor his blood sugars and may need his insulin adjusted again now that he is eating. CM/SW consulted for discharge planning. 11/20/2018 Patient continues to have pain, but this is being covered by primary team and orthopedics. He has no more nausea or vomiting. He does have some electrolyte problems with a low potassium at 2.7 and hematocrit 1.1. Functional Status: Denies: Pain Controlled - Review of Systems General: Reports: No Symptoms. Denies: Weakness, Fatigue HEENT: Reports: No Symptoms Pulmonary: Reports: No Symptoms. Denies: Shortness of Breath, Cough Cardiovascular: Reports: No Symptoms. Denies: Chest Pain, Dyspnea on Exertion Gastrointestinal: Reports: No Symptoms Skin: Denies: No Symptoms - Patient Data Vitals - Most Recent: Last Vital Signs Temp 97.3 F 11/20/18 08:59 Pulse 73 11/20/18 11:32 Resp 18 11/20/18 11:32 BP 159/50 H 11/20/18 11:32 Pulse Ox 94 L 11/20/18 11:32 Weight - Most Recent: 207 lb 14.4 oz I&O - Last 24 Hours: Intake & Output 11/19/18 11/20/18 11/20/18 22:59 06:59 14:59 Intake Total 1660 800 120 Output Total 1450 Balance 1660 -650 120 Lab Results Last 24 Hours: Laboratory Results - last 24 hr 11/19/18 11/19/18 11/20/18 Range/Units 16:54 20:48 04:31 WBC 7.81 (4.23-9.07) K/mm3 RBC 3.74 L (4.63-6.08) M/mm3 Hgb 11.6 L (13.7-17.5) gm/L Hct 33.8 L (40.1-51.0) % MCV 90.4 (79.0-92.2) fl MCH 31.0 (25.7-32.2) pg MCHC 34.3 (32.2-35.5) g/dl RDW Std Deviation 41.5 (35.1-43.9) fL Plt Count 189 (163-337) K/mm3 MPV 10.5 (9.4-12.3) fl Neut % (Auto) 72.1 H (34.0-67.9) % Lymph % (Auto) 12.7 L (21.8-53.1) % [place] % (Auto) 11.5 (5.3-12.2) % Eos % (Auto) 3.3 (0.8-7.0) Baso % (Auto) 0.1 (0.1-1.2) % Neut # (Auto) 5.63 H (1.78-5.38) K/mm3 Lymph # (Auto) 0.99 L (1.32-3.57) K/mm3 [place] # (Auto) 0.90 H (0.30-0.82) K/mm3 Eos # (Auto) 0.26 (0.04-0.54) K/mm3 Baso # (Auto) 0.01 (0.01-0.08) K/mm3 Sodium (136-145) mEq/L Potassium (3.5-5.1) mEq/L Chloride (98-107) mEq/L Carbon Dioxide (21-32) mEq/L Anion Gap (5-15) BUN (7-18) mg/dL Creatinine (0.7-1.3) mg/dL Est Cr Clr Drug Dosing mL/min Estimated GFR (MDRD) (>60) mL/min BUN/Creatinine Ratio (14-18) Glucose (83-115) mg/dL POC Glucose 187 H 201 H (83-110) mg/dL Calcium (8.5-10.1) mg/dL Magnesium (1.8-2.4) mg/dl 11/20/18 11/20/18 11/20/18 Range/Units 04:31 06:59 11:51 WBC (4.23-9.07) K/mm3 RBC (4.63-6.08) M/mm3 Hgb (13.7-17.5) gm/L Hct (40.1-51.0) % MCV (79.0-92.2) fl MCH (25.7-32.2) pg MCHC (32.2-35.5) g/dl RDW Std Deviation (35.1-43.9) fL Plt Count (163-337) K/mm3 MPV (9.4-12.3) fl Neut % (Auto) (34.0-67.9) % Lymph % (Auto) (21.8-53.1) % [place] % (Auto) (5.3-12.2) % Eos % (Auto) (0.8-7.0) Baso % (Auto) (0.1-1.2) % Neut # (Auto) (1.78-5.38) K/mm3 Lymph # (Auto) (1.32-3.57) K/mm3 [place] # (Auto) (0.30-0.82) K/mm3 Eos # (Auto) (0.04-0.54) K/mm3 Baso # (Auto) (0.01-0.08) K/mm3 Sodium 136 (136-145) mEq/L Potassium 2.7 L (3.5-5.1) mEq/L Chloride 99 (98-107) mEq/L Carbon Dioxide 29 (21-32) mEq/L Anion Gap 10.7 (5-15) BUN 20 H (7-18) mg/dL Creatinine 1.3 (0.7-1.3) mg/dL Est Cr Clr Drug Dosing 49.91 mL/min Estimated GFR (MDRD) 54 (>60) mL/min BUN/Creatinine Ratio 15.4 (14-18) Glucose 182 H (83-115) mg/dL POC Glucose 174 H 217 H (83-110) mg/dL Calcium 8.2 L (8.5-10.1) mg/dL Magnesium 1.1 L (1.8-2.4) mg/dl Med Orders - Current: Current Medications Aspirin (Ecotrin) 325 mg PO BID [facility] Last Admin: 11/20/18 09:15 Dose: 325 mg Bisacodyl (Dulcolax) 5 mg PO DAILY PRN PRN Reason: Constipation Cyclobenzaprine HCl (Flexeril) 10 mg PO BID PRN PRN Reason: Spasms Last Admin: 11/19/18 14:58 Dose: 10 mg Docusate Sodium (Colace) 100 mg PO BID [facility] Last Admin: 11/20/18 09:15 Dose: 100 mg Famotidine (Pepcid) 20 mg PO Q12H [facility] Last Admin: 11/20/18 09:14 Dose: 20 mg Magnesium Sulfate 4 gm/ Premix 50 mls @ 12.5 mls/hr IV ONETIME ONE Stop: 11/20/18 13:44 Last Admin: 11/20/18 10:10 Dose: 12.5 mls/hr Potassium Chloride 10 meq/ (Premix) 100 mls @ 100 mls/hr IV Q1H [facility] Stop: 11/20/18 13:44 Last Admin: 11/20/18 12:28 Dose: 100 mls/hr Sodium Chloride (Normal Saline) 1,000 mls @ 50 mls/hr IV ASDIRECTED PRN PRN Reason: ONLY DURING MAG AND POTAS INFU Insulin Glargine (Lantus) 40 unit SUBCUT QAM [facility] Last Admin: 11/20/18 09:15 Dose: 40 units Insulin Human Lispro (Humalog) 0 unit SUBCUT QIDACANDBED [facility]; Protocol Last Admin: 11/20/18 11:57 Dose: 2 units Ketorolac Tromethamine (Toradol) 15 mg IVPUSH Q6H PRN PRN Reason: Pain Last Admin: 11/19/18 03:54 Dose: 15 mg Magnesium Hydroxide (Milk Of Magnesia) 30 ml PO BID PRN PRN Reason: Constipation Magnesium Oxide (Magnesium Oxide) 400 mg PO BID [facility] Last Admin: 11/20/18 10:06 Dose: 400 mg Miscellaneous Information (Remove Patch) 1 ea TRDERM Q72H [facility] Mometasone Furoate/Formoterol Fumar (Dulera 200-5 Mcg) 2 puff IH BID [facility] Last Admin: 11/20/18 09:32 Dose: 2 puff Morphine Sulfate (Morphine) 2 mg IVPUSH Q2H PRN PRN Reason: Breakthrough Pain Last Admin: 11/20/18 10:03 Dose: 2 mg Naloxone HCl (Narcan) 0.1 mg IVPUSH Q5M PRN PRN Reason: Oversedation Ondansetron HCl (Zofran) 4 mg IVPUSH Q6H PRN PRN Reason: Nausea/Vomiting Last Admin: 11/18/18 14:32 Dose: 4 mg Oxycodone HCl (Oxycodone) 5 mg PO Q6H PRN PRN Reason: severe pain Oxycodone/Acetaminophen (Percocet 325-5 Mg) 1 - 2 tab PO Q4H PRN PRN Reason: Pain Last Admin: 11/20/18 09:14 Dose: 2 tab Potassium Chloride (Klor-Con M20) 20 meq PO BID [facility] Last Admin: 11/20/18 10:06 Dose: 20 meq Prochlorperazine Edisylate (Compazine) 10 mg IVPUSH Q6H PRN PRN Reason: NAUSEA/VOMITING Last Admin: 11/18/18 17:37 Dose: 10 mg Scopolamine (Transderm-Scop) 1.5 mg TRDERM Q72H PRN PRN Reason: Nausea Last Admin: 11/18/18 15:32 Dose: 1.5 mg Senna (Senna) 8.6 mg PO BID PRN PRN Reason: Constipation Discontinued Medications Acetaminophen (Tylenol) 975 mg PO ONETIME [facility] Stop: 11/18/18 16:00 Last Admin: 11/18/18 10:15 Dose: 975 mg Bupivacaine HCl (Marcaine 0.25%) Confirm Administered Dose 30 ml .ROUTE .STK- MED ONE Stop: 11/18/18 10:29 Last Admin: 11/18/18 13:01 Dose: 30 ml Cefazolin Sodium (Ancef) Confirm Administered Dose 2 gm .ROUTE .STK-MED ONE Stop: 11/18/18 10:29 Last Admin: 11/18/18 12:55 Dose: 2 gm Cefazolin Sodium (Ancef) Confirm Administered Dose 2 gm .ROUTE .STK-MED ONE Stop: 11/18/18 11:55 Morphine Sulfate 8 mg/Epinephrine HCl 0.3 mg/Cefuroxime Sodium 750 mg/Ketorolac Tromethamine 30 mg/Sodium Chloride 27.9 ml 0 mg .XX ONETIME ONE Stop: 11/18/18 07:31 Last Admin: 11/18/18 13:00 Dose: 788.3 mg Diphenhydramine HCl (Benadryl) 25 mg IVPUSH Q6H PRN PRN Reason: pruritis Stop: 11/18/18 20:00 Epinephrine HCl (Adrenalin) Confirm Administered Dose 1 mg .ROUTE .STK-MED ONE Stop: 11/18/18 09:31 Fentanyl (Sublimaze) Confirm Administered Dose 100 mcg .ROUTE .STK-MED ONE Stop: 11/18/18 11:44 Fentanyl (Sublimaze) 50 mcg IVPUSH Q5M PRN PRN Reason: Pain Stop: 11/18/18 20:00 Lactated Ringer's (Ringers, Lactated) 1,000 mls @ 125 mls/hr IV ASDIRECTED [facility] Stop: 11/18/18 18:00 Last Admin: 11/18/18 09:50 Dose: 125 mls/hr Cefazolin Sodium/Dextrose 2 gm (/ Premix) 50 mls @ 100 mls/hr IV Q8H [facility] Stop: 11/19/18 12:29 Last Admin: 11/19/18 12:52 Dose: 100 mls/hr Lidocaine HCl (Xylocaine-Mpf 1%) Confirm Administered Dose 4 mls @ as directed .ROUTE .STK-MED ONE Stop: 11/18/18 11:44 Lactated Ringer's (Ringers, Lactated) Confirm Administered Dose 1,000 mls @ as directed .ROUTE .STK-MED ONE Stop: 11/18/18 12:01 Prochlorperazine Edisylate 10 (mg/ Sodium Chloride) 52 mls @ 150 mls/hr IV Q6H PRN PRN Reason: Nausea/Vomiting Sodium Chloride (Normal Saline) 500 mls @ 999 mls/hr IV .BOLUS ONE Stop: 11/19/18 07:10 Last Admin: 11/19/18 08:37 Dose: 999 mls/hr Sodium Chloride (Normal Saline) 1,000 mls @ 50 mls/hr IV ASDIRECTED [facility] Last Admin: 11/20/18 10:03 Dose: 50 mls/hr Insulin Glargine (Lantus) 20 unit SUBCUT [facility] Last Admin: 11/19/18 08:39 Dose: 20 units Iodine (Iodine 2% Mild Tincture) Confirm Administered Dose 30 ml .ROUTE .STK- MED ONE Stop: 11/18/18 10:29 Last Admin: 11/18/18 12:54 Dose: 18 ml Ketamine HCl (Ketalar) Confirm Administered Dose 500 mg .ROUTE .STK-MED ONE Stop: 11/18/18 11:05 Lidocaine/Sodium Bicarbonate (Buffered Lidocaine 1% In Ns 8.4%) 0.25 ml IDERM ONETIME PRN PRN Reason: Prior to IV Start Stop: 11/18/18 18:00 Last Admin: 11/18/18 09:50 Dose: 0.25 ml Ondansetron HCl (Zofran) 4 mg IVPUSH ONETIME PRN PRN Reason: Nausea/Vomiting Stop: 11/18/18 20:00 Oxycodone HCl (Oxycontin) 10 mg PO ONETIME [facility] Stop: 11/18/18 16:00 Last Admin: 11/18/18 10:15 Dose: 10 mg Pregabalin (Lyrica) 50 mg PO ONETIME [facility] Stop: 11/18/18 16:00 Last Admin: 11/18/18 10:15 Dose: 50 mg Propofol (Diprivan 20 Ml) Confirm Administered Dose 200 mg .ROUTE .STK-MED ONE Stop: 11/18/18 11:43 Propofol (Diprivan 20 Ml) Confirm Administered Dose 200 mg .ROUTE .STK-MED ONE Stop: 11/18/18 12:24 Propofol (Diprivan 20 Ml) Confirm Administered Dose 200 mg .ROUTE .STK-MED ONE Stop: 11/18/18 13:03 Ropivacaine (Naropin 0.5%) Confirm Administered Dose 30 ml .ROUTE .STK-MED ONE Stop: 11/18/18 09:31 Sodium Chloride (Saline Flush) 10 ml FLUSH ASDIRECTED PRN PRN Reason: Keep Vein Open Stop: 11/18/18 18:00 Tranexamic Acid (Cyklokapron) Confirm Administered Dose 1,000 mg .ROUTE .STK- MED ONE Stop: 11/18/18 10:29 Last Admin: 11/18/18 13:08 Dose: 1,000 mg Vancomycin HCl (Vancomycin) Confirm Administered Dose 1 gm .ROUTE .STK-MED ONE Stop: 11/18/18 10:29 Last Admin: 11/18/18 13:03 Dose: 1 gm - Exam Quality Assessment: No: Supplemental Oxygen General: Alert, Oriented HEENT: Pupils Equal Neck: Supple Lungs: Clear to Auscultation, Normal Respiratory Effort Cardiovascular: Regular Rate, Regular Rhythm GI/Abdominal Exam: Normal Bowel Sounds, Soft, Non-Tender, No Organomegaly, No Distention Extremities: Limited Range of Motion Consult PN Assessment/Plan Procedures: Procedures MR-TRACIE DNA AMP PROBE (11/11/18) Problem List Initiated/Reviewed/Updated: Yes My Orders Last 24 Hours: My Active Orders 11/20/18 09:45 Magnesium Sulfate/Water [Magnesium Sulfate in Water Premix] 4 gm Premix Bag 1 bag IV ONETIME Potassium Chloride [KCl 10 MEQ in Water 100 ML] 10 meq Premix Bag 1 bag IV Q1H 11/20/18 10:00 Magnesium Oxide 400 mg PO BID Potassium Chloride [Klor-Con M20] 20 meq PO BID 11/20/18 10:30 Sodium Chloride 0.9% [Normal Saline] 1,000 ml IV ASDIRECTED 11/21/18 05:11 BASIC METABOLIC PANEL,BMP [CHEM] AM CBC WITH AUTO DIFF [HEME] AM MAGNESIUM [CHEM] AM 11/21/18 15:00 Remove Patch 1 ea TRDERM Q72H Plan: I/P: Acute: S/P right total knee arthroplasty - post-operative day 2 -DVT prophylaxis and pain management per primary care team -PT/OT -IS/RT -Monitor oxygen saturation -Titrate oxygen as needed -Home medications reviewed - multiple medications held -Vital signs stable -Monitor labs -Pre-operative Hgb was 15.1; Now 11.6 -Pre-operative creatinine was 1.1; Now 1.3 -Pre-operative BUN was 29; Now 20 -Pre-operative A1C was 7.1 -Pre-operative INR was 1.13 -Echo from 03/05/19: LVEF of 50-55%; Mild AV regurgitation; Moderate MV regurgitation Osteoarthritis of right knee -Pain management per primary care team AVE -Creatinine as above - improving -BUN as above - improvig -Fluid bolus given yesterday -Encourage oral hydration hypokalemia and hypomagnesemia -Potassium 2.7 and magnesium 1.1 -Replenish with both IV and oral potassium and magnesium supplementation. Recheck in the morning. 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 His PCP is Dr. Lopez. Thank you for allowing us to participate in the care of this patient!!
[2018-11-20] MEDS: Ketorolac 15 MG/ML SDV IVPUSH PRN (17:23)
[2018-11-20] MEDS: Cyclobenzaprine 10 MG Tab PO PRN (17:26)
[2018-11-21] MEDS: Acetaminophen/oxyCODONE 325-5 MG Tab PO PRN ×4 (06:36→21:01)
[2018-11-21] MEDS: Formoterol/Mometasone 200-5 MCG 8.8 GM Inhaler IH SCH ×2 (08:15→20:13)
[2018-11-21] MEDS ORDERED: Potassium Chloride 10 MEQ in Premix Bag 1 BAG IV ONE ×4 (08:30→11:30)
[2018-11-21] MEDS: Insulin Glarg,Human.Rec.Analog 100 UNIT/ML ML SUBCUT SCH (08:51)
[2018-11-21] MEDS: Insulin Lispro 100 Units/ML 3 ML Vial SUBCUT SCH ×4 (08:52→21:03)
[2018-11-21] MEDS: Magnesium Oxide 400 MG Tab PO SCH ×2 (08:56→21:01)
[2018-11-21] MEDS: Famotidine 20 MG Tab PO SCH ×2 (08:56→21:01)
[2018-11-21] MEDS: Docusate Sodium 100 MG Cap PO SCH ×2 (08:56→21:00)
[2018-11-21] MEDS: Aspirin 325 MG Tab.EC PO SCH ×2 (08:56→21:00)
[2018-11-21] MEDS: Potassium Chloride 20 MEQ Tab.ER PO SCH ×2 (08:56→15:46)
[2018-11-21] MEDS ORDERED: Sodium Chloride 0.9% 500 ML IV ONE (09:02)
--- NOTE | 2018-11-21 10:27 | PCM.SURGPN ---
- General Info Date of Service: 11/21/18 POD#: 3 Functional Status: Reports: Pain Controlled, Tolerating Diet, Ambulating, Urinating, Incentive Spirometry, Other (The pt states he was able to transition sit to stand with less assistance.) - Patient Data Vitals - Most Recent: Last Vital Signs Temp 98.4 F 11/20/18 20:13 Pulse 74 11/20/18 20:13 Resp 16 11/20/18 20:13 BP 115/49 L 11/20/18 20:13 Pulse Ox 90 L 11/21/18 08:16 Weight - Most Recent: 210 lb 6.4 oz I&O - Last 24 Hours: Intake & Output 11/20/18 11/21/18 11/21/18 22:59 06:59 14:59 Intake Total 2110 350 Output Total 1550 1075 Balance 560 -725 Lab Results Last 24 Hrs: Laboratory Results - last 24 hr 11/20/18 11/20/18 11/20/18 Range/Units 11:51 17:02 20:47 WBC (4.23-9.07) K/mm3 RBC (4.63-6.08) M/mm3 Hgb (13.7-17.5) gm/L Hct (40.1-51.0) % MCV (79.0-92.2) fl MCH (25.7-32.2) pg MCHC (32.2-35.5) g/dl RDW Std Deviation (35.1-43.9) fL Plt Count (163-337) K/mm3 MPV (9.4-12.3) fl Neut % (Auto) (34.0-67.9) % Lymph % (Auto) (21.8-53.1) % Simpson % (Auto) (5.3-12.2) % Eos % (Auto) (0.8-7.0) Baso % (Auto) (0.1-1.2) % Neut # (Auto) (1.78-5.38) K/mm3 Lymph # (Auto) (1.32-3.57) K/mm3 Simpson # (Auto) (0.30-0.82) K/mm3 Eos # (Auto) (0.04-0.54) K/mm3 Baso # (Auto) (0.01-0.08) K/mm3 Sodium (136-145) mEq/L Potassium (3.5-5.1) mEq/L Chloride (98-107) mEq/L Carbon Dioxide (21-32) mEq/L Anion Gap (5-15) BUN (7-18) mg/dL Creatinine (0.7-1.3) mg/dL Est Cr Clr Drug Dosing mL/min Estimated GFR (MDRD) (>60) mL/min BUN/Creatinine Ratio (14-18) Glucose (83-115) mg/dL POC Glucose 217 H 229 H 170 H (83-110) mg/dL Calcium (8.5-10.1) mg/dL Magnesium (1.8-2.4) mg/dl 11/21/18 11/21/18 11/21/18 Range/Units 05:13 05:13 05:46 WBC 7.83 (4.23-9.07) K/mm3 RBC 3.56 L (4.63-6.08) M/mm3 Hgb 10.9 L (13.7-17.5) gm/L Hct 32.5 L (40.1-51.0) % MCV 91.3 (79.0-92.2) fl MCH 30.6 (25.7-32.2) pg MCHC 33.5 (32.2-35.5) g/dl RDW Std Deviation 42.7 (35.1-43.9) fL Plt Count 185 (163-337) K/mm3 MPV 10.5 (9.4-12.3) fl Neut % (Auto) 67.2 (34.0-67.9) % Lymph % (Auto) 14.2 L (21.8-53.1) % Simpson % (Auto) 9.2 (5.3-12.2) % Eos % (Auto) 8.6 H (0.8-7.0) Baso % (Auto) 0.4 (0.1-1.2) % Neut # (Auto) 5.27 (1.78-5.38) K/mm3 Lymph # (Auto) 1.11 L (1.32-3.57) K/mm3 Simpson # (Auto) 0.72 (0.30-0.82) K/mm3 Eos # (Auto) 0.67 H (0.04-0.54) K/mm3 Baso # (Auto) 0.03 (0.01-0.08) K/mm3 Sodium 136 (136-145) mEq/L Potassium 3.0 L (3.5-5.1) mEq/L Chloride 99 (98-107) mEq/L Carbon Dioxide 30 (21-32) mEq/L Anion Gap 10.0 (5-15) BUN 18 (7-18) mg/dL Creatinine 1.2 (0.7-1.3) mg/dL Est Cr Clr Drug Dosing 54.07 mL/min Estimated GFR (MDRD) 59 (>60) mL/min BUN/Creatinine Ratio 15.0 (14-18) Glucose 153 H (83-115) mg/dL POC Glucose 140 H (83-110) mg/dL Calcium 8.3 L (8.5-10.1) mg/dL Magnesium 1.9 (1.8-2.4) mg/dl Med Orders - Current: Current Medications Aspirin (Ecotrin) 325 mg PO BID [facility] Last Admin: 11/21/18 08:56 Dose: 325 mg Bisacodyl (Dulcolax) 5 mg PO DAILY PRN PRN Reason: Constipation Cyclobenzaprine HCl (Flexeril) 10 mg PO BID PRN PRN Reason: Spasms Last Admin: 11/20/18 17:26 Dose: 10 mg Docusate Sodium (Colace) 100 mg PO BID [facility] Last Admin: 11/21/18 08:56 Dose: 100 mg Famotidine (Pepcid) 20 mg PO Q12H [facility] Last Admin: 11/21/18 08:56 Dose: 20 mg Potassium Chloride 10 meq/ (Premix) 100 mls @ 100 mls/hr IV ASDIRECTED ONE Stop: 11/21/18 10:29 Potassium Chloride 10 meq/ (Premix) 100 mls @ 100 mls/hr IV ASDIRECTED ONE Stop: 11/21/18 11:29 Potassium Chloride 10 meq/ (Premix) 100 mls @ 100 mls/hr IV ASDIRECTED ONE Stop: 11/21/18 12:29 Sodium Chloride (Normal Saline) 500 mls @ 50 mls/hr IV ONETIME ONE Stop: 11/21/18 19:01 Insulin Glargine (Lantus) 40 unit SUBCUT QAM [facility] Last Admin: 11/21/18 08:51 Dose: 40 units Insulin Human Lispro (Humalog) 0 unit SUBCUT QIDACANDBED [facility]; Protocol Last Admin: 11/21/18 08:52 Dose: Not Given Magnesium Hydroxide (Milk Of Magnesia) 30 ml PO BID PRN PRN Reason: Constipation Magnesium Oxide (Magnesium Oxide) 400 mg PO BID [facility] Last Admin: 11/21/18 08:56 Dose: 400 mg Miscellaneous Information (Remove Patch) 1 ea TRDERM Q72H [facility] Mometasone Furoate/Formoterol Fumar (Dulera 200-5 Mcg) 2 puff IH BID [facility] Last Admin: 11/21/18 08:15 Dose: 2 puff Morphine Sulfate (Morphine) 2 mg IVPUSH Q2H PRN PRN Reason: Breakthrough Pain Last Admin: 11/20/18 10:03 Dose: 2 mg Naloxone HCl (Narcan) 0.1 mg IVPUSH Q5M PRN PRN Reason: Oversedation Ondansetron HCl (Zofran) 4 mg IVPUSH Q6H PRN PRN Reason: Nausea/Vomiting Last Admin: 11/18/18 14:32 Dose: 4 mg Oxycodone HCl (Oxycodone) 5 mg PO Q6H PRN PRN Reason: severe pain Oxycodone/Acetaminophen (Percocet 325-5 Mg) 1 - 2 tab PO Q4H PRN PRN Reason: Pain Last Admin: 11/21/18 06:36 Dose: 2 tab Potassium Chloride (Klor-Con M20) 20 meq PO BID [facility] Last Admin: 11/21/18 08:56 Dose: 20 meq Prochlorperazine Edisylate (Compazine) 10 mg IVPUSH Q6H PRN PRN Reason: NAUSEA/VOMITING Last Admin: 11/18/18 17:37 Dose: 10 mg Scopolamine (Transderm-Scop) 1.5 mg TRDERM Q72H PRN PRN Reason: Nausea Last Admin: 11/18/18 15:32 Dose: 1.5 mg Senna (Senna) 8.6 mg PO BID PRN PRN Reason: Constipation Discontinued Medications Acetaminophen (Tylenol) 975 mg PO ONETIME [facility] Stop: 11/18/18 16:00 Last Admin: 11/18/18 10:15 Dose: 975 mg Bupivacaine HCl (Marcaine 0.25%) Confirm Administered Dose 30 ml .ROUTE .STK- MED ONE Stop: 11/18/18 10:29 Last Admin: 11/18/18 13:01 Dose: 30 ml Cefazolin Sodium (Ancef) Confirm Administered Dose 2 gm .ROUTE .STK-MED ONE Stop: 11/18/18 10:29 Last Admin: 11/18/18 12:55 Dose: 2 gm Cefazolin Sodium (Ancef) Confirm Administered Dose 2 gm .ROUTE .STK-MED ONE Stop: 11/18/18 11:55 Morphine Sulfate 8 mg/Epinephrine HCl 0.3 mg/Cefuroxime Sodium 750 mg/Ketorolac Tromethamine 30 mg/Sodium Chloride 27.9 ml 0 mg .XX ONETIME ONE Stop: 11/18/18 07:31 Last Admin: 11/18/18 13:00 Dose: 788.3 mg Diphenhydramine HCl (Benadryl) 25 mg IVPUSH Q6H PRN PRN Reason: pruritis Stop: 11/18/18 20:00 Epinephrine HCl (Adrenalin) Confirm Administered Dose 1 mg .ROUTE .STK-MED ONE Stop: 11/18/18 09:31 Fentanyl (Sublimaze) Confirm Administered Dose 100 mcg .ROUTE .STK-MED ONE Stop: 11/18/18 11:44 Fentanyl (Sublimaze) 50 mcg IVPUSH Q5M PRN PRN Reason: Pain Stop: 11/18/18 20:00 Lactated Ringer's (Ringers, Lactated) 1,000 mls @ 125 mls/hr IV ASDIRECTED [facility] Stop: 11/18/18 18:00 Last Admin: 11/18/18 09:50 Dose: 125 mls/hr Cefazolin Sodium/Dextrose 2 gm (/ Premix) 50 mls @ 100 mls/hr IV Q8H [facility] Stop: 11/19/18 12:29 Last Admin: 11/19/18 12:52 Dose: 100 mls/hr Lidocaine HCl (Xylocaine-Mpf 1%) Confirm Administered Dose 4 mls @ as directed .ROUTE .STK-MED ONE Stop: 11/18/18 11:44 Lactated Ringer's (Ringers, Lactated) Confirm Administered Dose 1,000 mls @ as directed .ROUTE .STK-MED ONE Stop: 11/18/18 12:01 Prochlorperazine Edisylate 10 (mg/ Sodium Chloride) 52 mls @ 150 mls/hr IV Q6H PRN PRN Reason: Nausea/Vomiting Sodium Chloride (Normal Saline) 500 mls @ 999 mls/hr IV .BOLUS ONE Stop: 11/19/18 07:10 Last Admin: 11/19/18 08:37 Dose: 999 mls/hr Magnesium Sulfate 4 gm/ Premix 50 mls @ 12.5 mls/hr IV ONETIME ONE Stop: 11/20/18 13:44 Last Admin: 11/20/18 10:10 Dose: 12.5 mls/hr Potassium Chloride 10 meq/ (Premix) 100 mls @ 100 mls/hr IV Q1H [facility] Stop: 11/20/18 13:44 Last Admin: 11/20/18 13:49 Dose: 100 mls/hr Sodium Chloride (Normal Saline) 1,000 mls @ 50 mls/hr IV ASDIRECTED [facility] Last Admin: 11/20/18 10:03 Dose: 50 mls/hr Sodium Chloride (Normal Saline) 1,000 mls @ 50 mls/hr IV ASDIRECTED PRN PRN Reason: ONLY DURING MAG AND POTAS INFU Last Admin: 11/20/18 11:15 Dose: 50 mls/hr Potassium Chloride 10 meq/ (Premix) 100 mls @ 100 mls/hr IV ASDIRECTED ONE Stop: 11/21/18 09:29 Last Admin: 11/21/18 08:52 Dose: 100 mls/hr Insulin Glargine (Lantus) 20 unit SUBCUT QAM [facility] Last Admin: 11/19/18 08:39 Dose: 20 units Iodine (Iodine 2% Mild Tincture) Confirm Administered Dose 30 ml .ROUTE .STK- MED ONE Stop: 11/18/18 10:29 Last Admin: 11/18/18 12:54 Dose: 18 ml Ketamine HCl (Ketalar) Confirm Administered Dose 500 mg .ROUTE .STK-MED ONE Stop: 11/18/18 11:05 Ketorolac Tromethamine (Toradol) 15 mg IVPUSH Q6H PRN PRN Reason: Pain Last Admin: 11/20/18 17:23 Dose: 15 mg Lidocaine/Sodium Bicarbonate (Buffered Lidocaine 1% In Ns 8.4%) 0.25 ml IDERM ONETIME PRN PRN Reason: Prior to IV Start Stop: 11/18/18 18:00 Last Admin: 11/18/18 09:50 Dose: 0.25 ml Ondansetron HCl (Zofran) 4 mg IVPUSH ONETIME PRN PRN Reason: Nausea/Vomiting Stop: 11/18/18 20:00 Oxycodone HCl (Oxycontin) 10 mg PO ONETIME [facility] Stop: 11/18/18 16:00 Last Admin: 11/18/18 10:15 Dose: 10 mg Pregabalin (Lyrica) 50 mg PO ONETIME [facility] Stop: 11/18/18 16:00 Last Admin: 11/18/18 10:15 Dose: 50 mg Propofol (Diprivan 20 Ml) Confirm Administered Dose 200 mg .ROUTE .STK-MED ONE Stop: 11/18/18 11:43 Propofol (Diprivan 20 Ml) Confirm Administered Dose 200 mg .ROUTE .STK-MED ONE Stop: 11/18/18 12:24 Propofol (Diprivan 20 Ml) Confirm Administered Dose 200 mg .ROUTE .STK-MED ONE Stop: 11/18/18 13:03 Ropivacaine (Naropin 0.5%) Confirm Administered Dose 30 ml .ROUTE .STK-MED ONE Stop: 11/18/18 09:31 Sodium Chloride (Saline Flush) 10 ml FLUSH ASDIRECTED PRN PRN Reason: Keep Vein Open Stop: 11/18/18 18:00 Tranexamic Acid (Cyklokapron) Confirm Administered Dose 1,000 mg .ROUTE .STK- MED ONE Stop: 11/18/18 10:29 Last Admin: 11/18/18 13:08 Dose: 1,000 mg Vancomycin HCl (Vancomycin) Confirm Administered Dose 1 gm .ROUTE .STK-MED ONE Stop: 11/18/18 10:29 Last Admin: 11/18/18 13:03 Dose: 1 gm - Exam Wound/Incisions: Dressing Dry and Intact General: Alert, Cooperative, No Acute Distress Lungs: Normal Respiratory Effort Extremities: Other (NVS intact for RLE. Mani's negative.) - Problem List Review Problem List Initiated/Reviewed/Updated: Yes - My Orders Last 24 Hours: Active Orders 24 hr Category Date Time Status BASIC METABOLIC PANEL,BMP [CHEM] AM Lab 11/22/18 05:11 Ordered BASIC METABOLIC PANEL,BMP [CHEM] AM Lab 11/23/18 05:11 Ordered CBC WITH AUTO DIFF [HEME] AM Lab 11/22/18 05:11 Ordered CBC WITH AUTO DIFF [HEME] AM Lab 11/23/18 05:11 Ordered MAGNESIUM [CHEM] AM Lab 11/22/18 05:11 Ordered MAGNESIUM [CHEM] AM Lab 11/23/18 05:11 Ordered Magnesium Oxide Med 11/20/18 10:00 Active 400 mg PO BID Potassium Chloride [KCl 10 MEQ in Water 100 ML] 10 meq Med 11/21/18 09:30 Active Premix Bag 1 bag IV ASDIRECTED Potassium Chloride [KCl 10 MEQ in Water 100 ML] 10 meq Med 11/21/18 10:30 Active Premix Bag 1 bag IV ASDIRECTED Potassium Chloride [KCl 10 MEQ in Water 100 ML] 10 meq Med 11/21/18 11:30 Active Premix Bag 1 bag IV ASDIRECTED Potassium Chloride [Klor-Con M20] Med 11/20/18 10:00 Active 20 meq PO BID Remove Patch Med 11/21/18 15:00 Active 1 ea TRDERM Q72H Sodium Chloride 0.9% [Normal Saline] 500 ml Med 11/21/18 09:02 Active IV ONETIME oxyCODONE Med 11/20/18 10:46 Active 5 mg PO Q6H PRN Medication Orders Aspirin (Ecotrin) 325 mg PO BID [facility] Last Admin: 11/21/18 08:56 Dose: 325 mg Admin: 11/20/18 21:01 Dose: 325 mg Admin: 11/20/18 09:15 Dose: 325 mg Admin: 11/19/18 22:39 Dose: 325 mg Admin: 11/19/18 08:40 Dose: 325 mg Bisacodyl (Dulcolax) 5 mg PO DAILY PRN PRN Reason: Constipation Cyclobenzaprine HCl (Flexeril) 10 mg PO BID PRN PRN Reason: Spasms Last Admin: 11/20/18 17:26 Dose: 10 mg Admin: 11/19/18 14:58 Dose: 10 mg Docusate Sodium (Colace) 100 mg PO BID [facility] Last Admin: 11/21/18 08:56 Dose: 100 mg Admin: 11/20/18 21:01 Dose: 100 mg Admin: 11/20/18 09:15 Dose: 100 mg Admin: 11/19/18 22:39 Dose: 100 mg Admin: 11/19/18 08:40 Dose: 100 mg Admin: 11/18/18 21:41 Dose: 100 mg Famotidine (Pepcid) 20 mg PO Q12H [facility] Last Admin: 11/21/18 08:56 Dose: 20 mg Admin: 11/20/18 21:01 Dose: 20 mg Admin: 11/20/18 09:14 Dose: 20 mg Admin: 11/19/18 22:39 Dose: 20 mg Admin: 11/19/18 08:40 Dose: 20 mg Admin: 11/18/18 21:41 Dose: 20 mg Potassium Chloride 10 meq/ (Premix) 100 mls @ 100 mls/hr IV ASDIRECTED ONE Stop: 11/21/18 10:29 Potassium Chloride 10 meq/ (Premix) 100 mls @ 100 mls/hr IV ASDIRECTED ONE Stop: 11/21/18 11:29 Potassium Chloride 10 meq/ (Premix) 100 mls @ 100 mls/hr IV ASDIRECTED ONE Stop: 11/21/18 12:29 Sodium Chloride (Normal Saline) 500 mls @ 50 mls/hr IV ONETIME ONE Stop: 11/21/18 19:01 Insulin Glargine (Lantus) 40 unit SUBCUT [facility] Last Admin: 11/21/18 08:51 Dose: 40 units Admin: 11/20/18 09:15 Dose: 40 units Insulin Human Lispro (Humalog) 0 unit SUBCUT QIDACANDBED [facility]; Protocol Last Admin: 11/21/18 08:52 Dose: Not Given Admin: 11/20/18 21:04 Dose: 1 units Admin: 11/20/18 17:06 Dose: 2 units Admin: 11/20/18 11:57 Dose: 2 units Admin: 11/20/18 09:14 Dose: 1 units Admin: 11/19/18 22:40 Dose: 2 units Admin: 11/19/18 18:24 Dose: 1 units Admin: 11/19/18 12:55 Dose: 2 units Admin: 11/19/18 08:39 Dose: 1 units Admin: 11/18/18 21:30 Dose: 1 units Admin: 11/18/18 17:11 Dose: 1 units Magnesium Hydroxide (Milk Of Magnesia) 30 ml PO BID PRN PRN Reason: Constipation Magnesium Oxide (Magnesium Oxide) 400 mg PO BID [facility] Last Admin: 11/21/18 08:56 Dose: 400 mg Admin: 11/20/18 21:02 Dose: 400 mg Admin: 11/20/18 10:06 Dose: 400 mg Miscellaneous Information (Remove Patch) 1 ea TRDERM Q72H [facility] Mometasone Furoate/Formoterol Fumar (Dulera 200-5 Mcg) 2 puff IH BID [facility] Last Admin: 11/21/18 08:15 Dose: 2 puff Admin: 11/20/18 20:43 Dose: 2 puff Admin: 11/20/18 09:32 Dose: 2 puff Admin: 11/19/18 20:28 Dose: 2 puff Admin: 11/19/18 12:57 Dose: Morphine Sulfate (Morphine) 2 mg IVPUSH Q2H PRN PRN Reason: Breakthrough Pain Last Admin: 11/20/18 10:03 Dose: 2 mg Admin: 11/19/18 19:15 Dose: 2 mg Naloxone HCl (Narcan) 0.1 mg IVPUSH Q5M PRN PRN Reason: Oversedation Ondansetron HCl (Zofran) 4 mg IVPUSH Q6H PRN PRN Reason: Nausea/Vomiting Last Admin: 11/18/18 14:32 Dose: 4 mg Oxycodone HCl (Oxycodone) 5 mg PO Q6H PRN PRN Reason: severe pain Oxycodone/Acetaminophen (Percocet 325-5 Mg) 1 - 2 tab PO Q4H PRN PRN Reason: Pain Last Admin: 11/21/18 06:36 Dose: 2 tab Admin: 11/20/18 23:32 Dose: 2 tab Admin: 11/20/18 18:53 Dose: 2 tab Admin: 11/20/18 13:53 Dose: 2 tab Admin: 11/20/18 09:14 Dose: 2 tab Admin: 11/20/18 03:50 Dose: 2 tab Admin: 11/19/18 18:27 Dose: 2 tab Admin: 11/19/18 12:51 Dose: 2 tab Admin: 11/19/18 08:41 Dose: 2 tab Admin: 11/18/18 17:41 Dose: 2 tab Potassium Chloride (Klor-Con M20) 20 meq PO BID [facility] Last Admin: 11/21/18 08:56 Dose: 20 meq Admin: 11/20/18 21:02 Dose: 20 meq Admin: 11/20/18 10:06 Dose: 20 meq Prochlorperazine Edisylate (Compazine) 10 mg IVPUSH Q6H PRN PRN Reason: NAUSEA/VOMITING Last Admin: 11/18/18 17:37 Dose: 10 mg Scopolamine (Transderm-Scop) 1.5 mg TRDERM Q72H PRN PRN Reason: Nausea Last Admin: 11/18/18 15:32 Dose: 1.5 mg Senna (Senna) 8.6 mg PO BID PRN PRN Reason: Constipation - Assessment Assessment (Free Text/Narrative):: POD#3 - s/p right TKA - Plan Plan (Free Text/Narrative):: 1. Suspect discharge to [facility] for continued rehab on 11-22-2018. The pt will remain in Hospital > 96 hours while awaiting NH placement and for continued monitoring and therapy participation. 2. Medical management per Hospitalist service. 3. 325mg ASA, SCDs, TEDs, mobility. The pt's case has been discussed with Dr. Sevilla.
[2018-11-21] MEDS: Cyclobenzaprine 10 MG Tab PO PRN (12:19)
--- NOTE | 2018-11-21 14:55 | PCM.CONSN ---
- General Info Date of Service: 11/21/18 Admission Dx/Problem (Free Text): Admission Diagnosis/Problem Admission Diagnosis/Problem Osteoarthritis of knee Subjective Update: 11/19/18: In to see Abel. He has been a 2 assist this AM. PT/OT is still unsure of how he will do at home. He will likely need to stay at least tonight. Unfortunately he was nauseated and dry heaving yesterday evening for most of the day. This limited his oral intake. His creatinine was elevated this AM and his GFR has decreased. 500mL fluid bolus given with 100mL NS thereafter until 1L is infused. He has been eating well today thus far. Repeat labs will be ordered tomorrow to re-check kidney function. We will monitor his blood sugars and may need his insulin adjusted again now that he is eating. CM/SW consulted for discharge planning. 11/20/2018 Patient continues to have pain, but this is being covered by primary team and orthopedics. He has no more nausea or vomiting. He does have some electrolyte problems with a low potassium at 2.7 and magnesium 1.1. November 21, 2018 Patient is improving. Continued hypokalemia with potassium of 3.0. Magnesium is normal today. - Review of Systems General: Reports: No Symptoms HEENT: Reports: No Symptoms Pulmonary: Reports: No Symptoms Cardiovascular: Reports: No Symptoms Gastrointestinal: Reports: No Symptoms Genitourinary: Reports: No Symptoms - Patient Data Vitals - Most Recent: Last Vital Signs Temp 98.4 F 11/20/18 20:13 Pulse 74 11/20/18 20:13 Resp 16 11/20/18 20:13 BP 115/49 L 11/20/18 20:13 Pulse Ox 90 L 11/21/18 08:16 Weight - Most Recent: 210 lb 6.4 oz I&O - Last 24 Hours: Intake & Output 11/20/18 11/21/18 11/21/18 22:59 06:59 14:59 Intake Total 2110 350 360 Output Total 1550 1075 Balance 560 -725 360 Lab Results Last 24 Hours: Laboratory Results - last 24 hr 11/20/18 11/20/18 11/21/18 Range/Units 17:02 20:47 05:13 WBC 7.83 (4.23-9.07) K/mm3 RBC 3.56 L (4.63-6.08) M/mm3 Hgb 10.9 L (13.7-17.5) gm/L Hct 32.5 L (40.1-51.0) % MCV 91.3 (79.0-92.2) fl MCH 30.6 (25.7-32.2) pg MCHC 33.5 (32.2-35.5) g/dl RDW Std Deviation 42.7 (35.1-43.9) fL Plt Count 185 (163-337) K/mm3 MPV 10.5 (9.4-12.3) fl Neut % (Auto) 67.2 (34.0-67.9) % Lymph % (Auto) 14.2 L (21.8-53.1) % [place] % (Auto) 9.2 (5.3-12.2) % Eos % (Auto) 8.6 H (0.8-7.0) Baso % (Auto) 0.4 (0.1-1.2) % Neut # (Auto) 5.27 (1.78-5.38) K/mm3 Lymph # (Auto) 1.11 L (1.32-3.57) K/mm3 [place] # (Auto) 0.72 (0.30-0.82) K/mm3 Eos # (Auto) 0.67 H (0.04-0.54) K/mm3 Baso # (Auto) 0.03 (0.01-0.08) K/mm3 Sodium (136-145) mEq/L Potassium (3.5-5.1) mEq/L Chloride (98-107) mEq/L Carbon Dioxide (21-32) mEq/L Anion Gap (5-15) BUN (7-18) mg/dL Creatinine (0.7-1.3) mg/dL Est Cr Clr Drug Dosing mL/min Estimated GFR (MDRD) (>60) mL/min BUN/Creatinine Ratio (14-18) Glucose (83-115) mg/dL POC Glucose 229 H 170 H (83-110) mg/dL Calcium (8.5-10.1) mg/dL Magnesium (1.8-2.4) mg/dl 11/21/18 11/21/18 11/21/18 Range/Units 05:13 05:46 11:14 WBC (4.23-9.07) K/mm3 RBC (4.63-6.08) M/mm3 Hgb (13.7-17.5) gm/L Hct (40.1-51.0) % MCV (79.0-92.2) fl MCH (25.7-32.2) pg MCHC (32.2-35.5) g/dl RDW Std Deviation (35.1-43.9) fL Plt Count (163-337) K/mm3 MPV (9.4-12.3) fl Neut % (Auto) (34.0-67.9) % Lymph % (Auto) (21.8-53.1) % [place] % (Auto) (5.3-12.2) % Eos % (Auto) (0.8-7.0) Baso % (Auto) (0.1-1.2) % Neut # (Auto) (1.78-5.38) K/mm3 Lymph # (Auto) (1.32-3.57) K/mm3 [place] # (Auto) (0.30-0.82) K/mm3 Eos # (Auto) (0.04-0.54) K/mm3 Baso # (Auto) (0.01-0.08) K/mm3 Sodium 136 (136-145) mEq/L Potassium 3.0 L (3.5-5.1) mEq/L Chloride 99 (98-107) mEq/L Carbon Dioxide 30 (21-32) mEq/L Anion Gap 10.0 (5-15) BUN 18 (7-18) mg/dL Creatinine 1.2 (0.7-1.3) mg/dL Est Cr Clr Drug Dosing 54.07 mL/min Estimated GFR (MDRD) 59 (>60) mL/min BUN/Creatinine Ratio 15.0 (14-18) Glucose 153 H (83-115) mg/dL POC Glucose 140 H 241 H (83-110) mg/dL Calcium 8.3 L (8.5-10.1) mg/dL Magnesium 1.9 (1.8-2.4) mg/dl Med Orders - Current: Current Medications Aspirin (Ecotrin) 325 mg PO BID ALEX Last Admin: 11/21/18 08:56 Dose: 325 mg Bisacodyl (Dulcolax) 5 mg PO DAILY PRN PRN Reason: Constipation Cyclobenzaprine HCl (Flexeril) 10 mg PO BID PRN PRN Reason: Spasms Last Admin: 11/21/18 12:19 Dose: 10 mg Docusate Sodium (Colace) 100 mg PO BID [facility] Last Admin: 11/21/18 08:56 Dose: 100 mg Famotidine (Pepcid) 20 mg PO Q12H [facility] Last Admin: 11/21/18 08:56 Dose: 20 mg Insulin Glargine (Lantus) 40 unit SUBCUT QAM [facility] Last Admin: 11/21/18 08:51 Dose: 40 units Insulin Human Lispro (Humalog) 0 unit SUBCUT QIDACANDBED [facility]; Protocol Last Admin: 11/21/18 11:21 Dose: 2 units Magnesium Hydroxide (Milk Of Magnesia) 30 ml PO BID PRN PRN Reason: Constipation Magnesium Oxide (Magnesium Oxide) 400 mg PO BID [facility] Last Admin: 11/21/18 08:56 Dose: 400 mg Miscellaneous Information (Remove Patch) 1 ea TRDERM Q72H [facility] Last Admin: 11/21/18 14:39 Dose: Not Given Mometasone Furoate/Formoterol Fumar (Dulera 200-5 Mcg) 2 puff IH BID [facility] Last Admin: 11/21/18 08:15 Dose: 2 puff Morphine Sulfate (Morphine) 2 mg IVPUSH Q2H PRN PRN Reason: Breakthrough Pain Last Admin: 11/20/18 10:03 Dose: 2 mg Naloxone HCl (Narcan) 0.1 mg IVPUSH Q5M PRN PRN Reason: Oversedation Ondansetron HCl (Zofran) 4 mg IVPUSH Q6H PRN PRN Reason: Nausea/Vomiting Last Admin: 11/18/18 14:32 Dose: 4 mg Oxycodone HCl (Oxycodone) 5 mg PO Q6H PRN PRN Reason: severe pain Last Admin: 11/21/18 11:07 Dose: 5 mg Oxycodone/Acetaminophen (Percocet 325-5 Mg) 1 - 2 tab PO Q4H PRN PRN Reason: Pain Last Admin: 11/21/18 11:06 Dose: 2 tab Potassium Chloride (Klor-Con M20) 20 meq PO BID [facility] Last Admin: 11/21/18 08:56 Dose: 20 meq Prochlorperazine Edisylate (Compazine) 10 mg IVPUSH Q6H PRN PRN Reason: NAUSEA/VOMITING Last Admin: 11/18/18 17:37 Dose: 10 mg Scopolamine (Transderm-Scop) 1.5 mg TRDERM Q72H PRN PRN Reason: Nausea Last Admin: 11/18/18 15:32 Dose: 1.5 mg Senna (Senna) 8.6 mg PO BID PRN PRN Reason: Constipation Discontinued Medications Acetaminophen (Tylenol) 975 mg PO ONETIME ALEX Stop: 11/18/18 16:00 Last Admin: 11/18/18 10:15 Dose: 975 mg Bupivacaine HCl (Marcaine 0.25%) Confirm Administered Dose 30 ml .ROUTE .STK- MED ONE Stop: 11/18/18 10:29 Last Admin: 11/18/18 13:01 Dose: 30 ml Cefazolin Sodium (Ancef) Confirm Administered Dose 2 gm .ROUTE .STK-MED ONE Stop: 11/18/18 10:29 Last Admin: 11/18/18 12:55 Dose: 2 gm Cefazolin Sodium (Ancef) Confirm Administered Dose 2 gm .ROUTE .STK-MED ONE Stop: 11/18/18 11:55 Morphine Sulfate 8 mg/Epinephrine HCl 0.3 mg/Cefuroxime Sodium 750 mg/Ketorolac Tromethamine 30 mg/Sodium Chloride 27.9 ml 0 mg .XX ONETIME ONE Stop: 11/18/18 07:31 Last Admin: 11/18/18 13:00 Dose: 788.3 mg Diphenhydramine HCl (Benadryl) 25 mg IVPUSH Q6H PRN PRN Reason: pruritis Stop: 11/18/18 20:00 Epinephrine HCl (Adrenalin) Confirm Administered Dose 1 mg .ROUTE .STK-MED ONE Stop: 11/18/18 09:31 Fentanyl (Sublimaze) Confirm Administered Dose 100 mcg .ROUTE .STK-MED ONE Stop: 11/18/18 11:44 Fentanyl (Sublimaze) 50 mcg IVPUSH Q5M PRN PRN Reason: Pain Stop: 11/18/18 20:00 Lactated Ringer's (Ringers, Lactated) 1,000 mls @ 125 mls/hr IV ASDIRECTED ALEX Stop: 11/18/18 18:00 Last Admin: 11/18/18 09:50 Dose: 125 mls/hr Cefazolin Sodium/Dextrose 2 gm (/ Premix) 50 mls @ 100 mls/hr IV Q8H [facility] Stop: 11/19/18 12:29 Last Admin: 11/19/18 12:52 Dose: 100 mls/hr Lidocaine HCl (Xylocaine-Mpf 1%) Confirm Administered Dose 4 mls @ as directed .ROUTE .STK-MED ONE Stop: 11/18/18 11:44 Lactated Ringer's (Ringers, Lactated) Confirm Administered Dose 1,000 mls @ as directed .ROUTE .[facility]-MED ONE Stop: 11/18/18 12:01 Prochlorperazine Edisylate 10 (mg/ Sodium Chloride) 52 mls @ 150 mls/hr IV Q6H PRN PRN Reason: Nausea/Vomiting Sodium Chloride (Normal Saline) 500 mls @ 999 mls/hr IV .BOLUS ONE Stop: 11/19/18 07:10 Last Admin: 11/19/18 08:37 Dose: 999 mls/hr Magnesium Sulfate 4 gm/ Premix 50 mls @ 12.5 mls/hr IV ONETIME ONE Stop: 11/20/18 13:44 Last Admin: 11/20/18 10:10 Dose: 12.5 mls/hr Potassium Chloride 10 meq/ (Premix) 100 mls @ 100 mls/hr IV Q1H [facility] Stop: 11/20/18 13:44 Last Admin: 11/20/18 13:49 Dose: 100 mls/hr Sodium Chloride (Normal Saline) 1,000 mls @ 50 mls/hr IV ASDIRECTED ALEX Last Admin: 11/20/18 10:03 Dose: 50 mls/hr Sodium Chloride (Normal Saline) 1,000 mls @ 50 mls/hr IV ASDIRECTED PRN PRN Reason: ONLY DURING MAG AND POTAS INFU Last Admin: 11/20/18 11:15 Dose: 50 mls/hr Potassium Chloride 10 meq/ (Premix) 100 mls @ 100 mls/hr IV ASDIRECTED ONE Stop: 11/21/18 09:29 Last Admin: 11/21/18 08:52 Dose: 100 mls/hr Potassium Chloride 10 meq/ (Premix) 100 mls @ 100 mls/hr IV ASDIRECTED ONE Stop: 11/21/18 10:29 Last Admin: 11/21/18 10:50 Dose: 100 mls/hr Potassium Chloride 10 meq/ (Premix) 100 mls @ 100 mls/hr IV ASDIRECTED ONE Stop: 11/21/18 11:29 Last Admin: 11/21/18 12:16 Dose: 100 mls/hr Potassium Chloride 10 meq/ (Premix) 100 mls @ 100 mls/hr IV ASDIRECTED ONE Stop: 11/21/18 12:29 Last Admin: 11/21/18 13:17 Dose: 100 mls/hr Sodium Chloride (Normal Saline) 500 mls @ 50 mls/hr IV ONETIME ONE Stop: 11/21/18 19:01 Last Admin: 11/21/18 09:05 Dose: 50 mls/hr Insulin Glargine (Lantus) 20 unit SUBCUT QAM ALEX Last Admin: 11/19/18 08:39 Dose: 20 units Iodine (Iodine 2% Mild Tincture) Confirm Administered Dose 30 ml .ROUTE .STK- MED ONE Stop: 11/18/18 10:29 Last Admin: 11/18/18 12:54 Dose: 18 ml Ketamine HCl (Ketalar) Confirm Administered Dose 500 mg .ROUTE .STK-MED ONE Stop: 11/18/18 11:05 Ketorolac Tromethamine (Toradol) 15 mg IVPUSH Q6H PRN PRN Reason: Pain Last Admin: 11/20/18 17:23 Dose: 15 mg Lidocaine/Sodium Bicarbonate (Buffered Lidocaine 1% In Ns 8.4%) 0.25 ml IDERM ONETIME PRN PRN Reason: Prior to IV Start Stop: 11/18/18 18:00 Last Admin: 11/18/18 09:50 Dose: 0.25 ml Ondansetron HCl (Zofran) 4 mg IVPUSH ONETIME PRN PRN Reason: Nausea/Vomiting Stop: 11/18/18 20:00 Oxycodone HCl (Oxycontin) 10 mg PO ONETIME ALEX Stop: 11/18/18 16:00 Last Admin: 11/18/18 10:15 Dose: 10 mg Pregabalin (Lyrica) 50 mg PO ONETIME ALEX Stop: 11/18/18 16:00 Last Admin: 11/18/18 10:15 Dose: 50 mg Propofol (Diprivan 20 Ml) Confirm Administered Dose 200 mg .ROUTE .STK-MED ONE Stop: 11/18/18 11:43 Propofol (Diprivan 20 Ml) Confirm Administered Dose 200 mg .ROUTE .STK-MED ONE Stop: 11/18/18 12:24 Propofol (Diprivan 20 Ml) Confirm Administered Dose 200 mg .ROUTE .STK-MED ONE Stop: 11/18/18 13:03 Ropivacaine (Naropin 0.5%) Confirm Administered Dose 30 ml .ROUTE .STK-MED ONE Stop: 11/18/18 09:31 Sodium Chloride (Saline Flush) 10 ml FLUSH ASDIRECTED PRN PRN Reason: Keep Vein Open Stop: 11/18/18 18:00 Tranexamic Acid (Cyklokapron) Confirm Administered Dose 1,000 mg .ROUTE .STK- MED ONE Stop: 11/18/18 10:29 Last Admin: 11/18/18 13:08 Dose: 1,000 mg Vancomycin HCl (Vancomycin) Confirm Administered Dose 1 gm .ROUTE .STK-MED ONE Stop: 11/18/18 10:29 Last Admin: 11/18/18 13:03 Dose: 1 gm - Exam General: Alert, Oriented HEENT: Pupils Equal Neck: Supple, Thyromegaly Lungs: Clear to Auscultation, Normal Respiratory Effort Cardiovascular: Regular Rate, Regular Rhythm GI/Abdominal Exam: Normal Bowel Sounds, No Distention Extremities: Normal Inspection, No Pedal Edema Skin: Warm, Dry, Intact Neurological: No New Focal Deficit Psy/Mental Status: Alert, Normal Affect Consult PN Assessment/Plan Procedures: Procedures MR-STAPH DNA AMP PROBE (11/11/18) Problem List Initiated/Reviewed/Updated: Yes My Orders Last 24 Hours: My Active Orders 11/21/18 15:00 Remove Patch 1 ea TRDERM Q72H Plan: I/P: Acute: S/P right total knee arthroplasty - post-operative day 3 -DVT prophylaxis and pain management per primary care team -PT/OT -IS/RT -Monitor oxygen saturation -Titrate oxygen as needed -Home medications reviewed - multiple medications held -Vital signs stable -Echo from 03/05/19: LVEF of 50-55%; Mild AV regurgitation; Moderate MV regurgitation Osteoarthritis of right knee -Pain management per primary care team AVE -Creatinine as above - improving -BUN as above - improvig -Fluid bolus given yesterday -Encourage oral hydration hypokalemia -Potassium 3.0 -Replenish with both IV and oral potassium supplementation. Recheck in the morning. 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 His PCP is Dr. Lopez. Thank you for allowing us to participate in the care of this patient!!
[2018-11-22] MEDS: Cyclobenzaprine 10 MG Tab PO PRN ×2 (01:16→13:32)
[2018-11-22] MEDS: Acetaminophen/oxyCODONE 325-5 MG Tab PO PRN ×3 (02:41→11:30)
[2018-11-22] MEDS ORDERED: Sodium Chloride/Potassium Chloride Tab PO ONE (07:19)
[2018-11-22] MEDS: Insulin Lispro 100 Units/ML 3 ML Vial SUBCUT SCH ×3 (07:36→12:16)
[2018-11-22] MEDS: Formoterol/Mometasone 200-5 MCG 8.8 GM Inhaler IH SCH (08:14)
[2018-11-22] MEDS: Insulin Glarg,Human.Rec.Analog 100 UNIT/ML ML SUBCUT SCH (08:34)
[2018-11-22] MEDS: Magnesium Oxide 400 MG Tab PO SCH (09:03)
[2018-11-22] MEDS: Potassium Chloride 20 MEQ Tab.ER PO SCH (09:03)
[2018-11-22] MEDS: Famotidine 20 MG Tab PO SCH (09:03)
[2018-11-22] MEDS: Aspirin 325 MG Tab.EC PO SCH (09:03)
[2018-11-22] MEDS: Docusate Sodium 100 MG Cap PO SCH (09:04)
--- NOTE | 2018-11-22 10:58 | PCM.OPNOTE ---
- General Post-Op/Procedure Note Date of Surgery/Procedure: 11/18/18 Operative Procedure(s): right total knee arthoplasty Pre Op Diagnosis: right knee osteoarthrosis Post-Op Diagnosis: Same Anesthesia Technique: Local, MAC, Spinal Primary Surgeon: Enmanuel Sevilla Anesthesia Provider: Kody Salas Electrician Chief: Echo Morin Electrician Chief: Amada Acuna EBL in mLs: 5 Complications: None Condition: Good Free Text/Narrative:: Intake & Output 11/21/18 11/22/18 11/22/18 22:59 06:59 14:59 Intake Total 1720 1400 Output Total 1200 1245 Balance 520 155 size 5/5 9mm 35x10
--- NOTE | 2018-11-22 11:24 | OR ---
DATE OF OPERATION: 11/18/2018 SURGEON: Enmanuel Sevilla MD OPERATION PERFORMED: Right total knee arthroplasty. PREOPERATIVE DIAGNOSIS: Right knee osteoarthrosis. POSTOPERATIVE DIAGNOSIS: Right knee osteoarthrosis. ANESTHESIA: Local MAC with spinal. ANESTHESIA PROVIDER: Damir Josue. RESERVATIONS CLERK: Echo Morin PA-C, and Amada Acuna LPN. ESTIMATED BLOOD LOSS: 5 mL. COMPLICATIONS: None. CONDITION: Stable. IMPLANTS: 1. Familia size 5 cemented PS femur. 2. Familia size 5 cemented universal tibial base plate. 3. Cashion size 5 9 mm PS X3 polyethylene insert. 4. Cashion size 35 x 10 mm cemented asymmetric patella. DESCRIPTION OF PROCEDURE: The patient was identified in the preop holding area. Proper site was marked and identified by the surgeon. The patient was taken back to the operating theater. After adequate anesthesia, the patient's right lower extremity had a nonsterile tourniquet applied and it was sterilely prepped and draped in the usual sterile fashion. OR time-out was performed. The patient received 2 g IV Ancef. At this time, the right lower extremity was exsanguinated. Tourniquet was insufflated to 300 mmHg. Standard medial parapatellar incision was made. Medial parapatellar arthrotomy was created. Deep fibers of the MCL were raised and anterior fat pad was resected. At this time, attention was turned to the patella. Patella measured 24, it was resected to a 14 for a 35 x 10 mm patella. Drill holes were then drilled and found to be in adequate position. The drill was then drilled in the distal femur and the intramedullary distal femoral cutting guide was then placed. 8 mm was resected off the distal femur and was found to be an adequate resection. Sizing guide was placed. It was found to be a size 5 cemented PS femur that was shown on the implant record at the beginning of this dictation. The drill holes were drilled for the epicondylar axis using Whitesides line and epicondyles as reference. At this time, the 4-in-1 cutting block was placed. An anterior posterior and anterior and posterior chamfer cuts were then completed. Box cut was completed at this time. Attention was turned to the tibia. The posterior medial lateral retractors were placed. The extramedullary tibial guide was placed. It was placed in the old footprint of the ACL. It was aligned with the center of the ankle and 0 degrees of slope, 9 mm was then resected off the unaffected side. There was found to be an acceptable reduction. At this time, posterior osteophytes were removed along with medial and lateral meniscus. A trial implant was placed with a correct sized tibia that was mentioned at the beginning of the dictation. A Cashion size 5 9 mm PS X3 polyethylene insert was then placed. The patient's knee was brought through range of motion. The patella was tracking centrally and was stable to varus and valgus stress. Alignment was found to be roughly at 0 degrees. The tibia was stamped and drilled in proper rotation. All cut surfaces were irrigated and cement was mixed on the back table. The universal tibial base plate was impacted in place. Next, the Cashion size 5 cemented PS femur impacted into place and the Familia size 5 9 mm PS X3 polyethylene insert was placed. The patient's knee was brought into full extension. The patella was then cemented in place at this time. One liter dilute Betadine solution was irrigated through the knee along with 3 L of pulse lavage irrigation with Ancef. Periarticular injection was then completed. The patient's knee was brought through a range of motion. Once the cement had time to set up and it was found to be stable to varus valgus stress, the patella was tracking centrally with full range of motion. At this time, a #2 barbed suture was used for closure of the medial parapatellar arthrotomy. Topical tranexamic acid was placed. 2-0 Vicryl was used subcutaneously, Prineo was used for the skin. The patient tolerated the procedure well and was sent to the PACU in stable condition. MMBRYNN /[id number] MARILYN
--- NOTE | 2018-11-22 12:43 | PCM.SURGPN ---
- General Info Date of Service: 11/22/18 POD#: 4 Functional Status: Reports: Pain Controlled, Tolerating Diet, Ambulating, Urinating, Incentive Spirometry, Other (The pt states he is slowly making progress with therapy. He feels he is not prepared for discharge to home at this time.) - Patient Data Vitals - Most Recent: Last Vital Signs Temp 98.4 F 11/22/18 08:59 Pulse 80 11/22/18 08:59 Resp 20 11/22/18 08:59 BP 134/58 L 11/22/18 09:06 Pulse Ox 94 L 11/22/18 08:59 Weight - Most Recent: 217 lb 11.2 oz I&O - Last 24 Hours: Intake & Output 11/21/18 11/22/18 11/22/18 22:59 06:59 14:59 Intake Total 1720 1400 Output Total 1200 1245 Balance 520 155 Lab Results Last 24 Hrs: Laboratory Results - last 24 hr 11/21/18 11/21/18 11/22/18 Range/Units 16:32 20:58 04:17 WBC 7.45 (4.23-9.07) K/mm3 RBC 3.37 L (4.63-6.08) M/mm3 Hgb 10.5 L (13.7-17.5) gm/L Hct 31.1 L (40.1-51.0) % MCV 92.3 H (79.0-92.2) fl MCH 31.2 (25.7-32.2) pg MCHC 33.8 (32.2-35.5) g/dl RDW Std Deviation 42.5 (35.1-43.9) fL Plt Count 230 (163-337) K/mm3 MPV 10.5 (9.4-12.3) fl Neut % (Auto) 70.3 H (34.0-67.9) % Lymph % (Auto) 11.7 L (21.8-53.1) % Williamson % (Auto) 8.3 (5.3-12.2) % Eos % (Auto) 9.1 H (0.8-7.0) Baso % (Auto) 0.1 (0.1-1.2) % Neut # (Auto) 5.23 (1.78-5.38) K/mm3 Lymph # (Auto) 0.87 L (1.32-3.57) K/mm3 Williamson # (Auto) 0.62 (0.30-0.82) K/mm3 Eos # (Auto) 0.68 H (0.04-0.54) K/mm3 Baso # (Auto) 0.01 (0.01-0.08) K/mm3 Sodium (136-145) mEq/L Potassium (3.5-5.1) mEq/L Chloride (98-107) mEq/L Carbon Dioxide (21-32) mEq/L Anion Gap (5-15) BUN (7-18) mg/dL Creatinine (0.7-1.3) mg/dL Est Cr Clr Drug Dosing mL/min Estimated GFR (MDRD) (>60) mL/min BUN/Creatinine Ratio (14-18) Glucose (83-115) mg/dL POC Glucose 261 H 176 H (83-110) mg/dL Calcium (8.5-10.1) mg/dL Magnesium (1.8-2.4) mg/dl 11/22/18 11/22/18 11/22/18 Range/Units 04:17 06:21 11:56 WBC (4.23-9.07) K/mm3 RBC (4.63-6.08) M/mm3 Hgb (13.7-17.5) gm/L Hct (40.1-51.0) % MCV (79.0-92.2) fl MCH (25.7-32.2) pg MCHC (32.2-35.5) g/dl RDW Std Deviation (35.1-43.9) fL Plt Count (163-337) K/mm3 MPV (9.4-12.3) fl Neut % (Auto) (34.0-67.9) % Lymph % (Auto) (21.8-53.1) % Williamson % (Auto) (5.3-12.2) % Eos % (Auto) (0.8-7.0) Baso % (Auto) (0.1-1.2) % Neut # (Auto) (1.78-5.38) K/mm3 Lymph # (Auto) (1.32-3.57) K/mm3 Williamson # (Auto) (0.30-0.82) K/mm3 Eos # (Auto) (0.04-0.54) K/mm3 Baso # (Auto) (0.01-0.08) K/mm3 Sodium 129 L (136-145) mEq/L Potassium 3.5 (3.5-5.1) mEq/L Chloride 97 L (98-107) mEq/L Carbon Dioxide 28 (21-32) mEq/L Anion Gap 7.5 (5-15) BUN 20 H (7-18) mg/dL Creatinine 1.3 (0.7-1.3) mg/dL Est Cr Clr Drug Dosing 49.91 mL/min Estimated GFR (MDRD) 54 (>60) mL/min BUN/Creatinine Ratio 15.4 (14-18) Glucose 258 H (83-115) mg/dL POC Glucose 210 H 284 H (83-110) mg/dL Calcium 8.2 L (8.5-10.1) mg/dL Magnesium 1.7 L (1.8-2.4) mg/dl Med Orders - Current: Current Medications Aspirin (Ecotrin) 325 mg PO BID [facility] Last Admin: 11/22/18 09:03 Dose: 325 mg Bisacodyl (Dulcolax) 5 mg PO DAILY PRN PRN Reason: Constipation Cyclobenzaprine HCl (Flexeril) 10 mg PO BID PRN PRN Reason: Spasms Last Admin: 11/22/18 01:16 Dose: 10 mg Docusate Sodium (Colace) 100 mg PO BID [facility] Last Admin: 11/22/18 09:04 Dose: 100 mg Famotidine (Pepcid) 20 mg PO Q12H [facility] Last Admin: 11/22/18 09:03 Dose: 20 mg Insulin Glargine (Lantus) 40 unit SUBCUT QAM [facility] Last Admin: 11/22/18 08:34 Dose: 40 units Insulin Human Lispro (Humalog) 0 unit SUBCUT QIDACANDBED [facility]; Protocol Last Admin: 11/22/18 12:16 Dose: 3 units Magnesium Hydroxide (Milk Of Magnesia) 30 ml PO BID PRN PRN Reason: Constipation Magnesium Oxide (Magnesium Oxide) 400 mg PO BID [facility] Last Admin: 11/22/18 09:03 Dose: 400 mg Miscellaneous Information (Remove Patch) 1 ea TRDERM Q72H [facility] Last Admin: 11/21/18 14:39 Dose: Not Given Mometasone Furoate/Formoterol Fumar (Dulera 200-5 Mcg) 2 puff IH BID [facility] Last Admin: 11/22/18 08:14 Dose: 2 puff Morphine Sulfate (Morphine) 2 mg IVPUSH Q2H PRN PRN Reason: Breakthrough Pain Last Admin: 11/20/18 10:03 Dose: 2 mg Naloxone HCl (Narcan) 0.1 mg IVPUSH Q5M PRN PRN Reason: Oversedation Ondansetron HCl (Zofran) 4 mg IVPUSH Q6H PRN PRN Reason: Nausea/Vomiting Last Admin: 11/18/18 14:32 Dose: 4 mg Oxycodone HCl (Oxycodone) 5 mg PO Q6H PRN PRN Reason: severe pain Last Admin: 11/21/18 11:07 Dose: 5 mg Oxycodone/Acetaminophen (Percocet 325-5 Mg) 1 - 2 tab PO Q4H PRN PRN Reason: Pain Last Admin: 11/22/18 11:30 Dose: 2 tab Potassium Chloride (Klor-Con M20) 40 meq PO DAILY [facility] Last Admin: 11/22/18 09:03 Dose: 40 meq Prochlorperazine Edisylate (Compazine) 10 mg IVPUSH Q6H PRN PRN Reason: NAUSEA/VOMITING Last Admin: 11/18/18 17:37 Dose: 10 mg Scopolamine (Transderm-Scop) 1.5 mg TRDERM Q72H PRN PRN Reason: Nausea Last Admin: 11/18/18 15:32 Dose: 1.5 mg Senna (Senna) 8.6 mg PO BID PRN PRN Reason: Constipation Last Admin: 11/22/18 12:16 Dose: 8.6 mg Discontinued Medications Acetaminophen (Tylenol) 975 mg PO ONETIME [facility] Stop: 11/18/18 16:00 Last Admin: 11/18/18 10:15 Dose: 975 mg Bupivacaine HCl (Marcaine 0.25%) Confirm Administered Dose 30 ml .ROUTE .STK- MED ONE Stop: 11/18/18 10:29 Last Admin: 11/18/18 13:01 Dose: 30 ml Cefazolin Sodium (Ancef) Confirm Administered Dose 2 gm .ROUTE .STK-MED ONE Stop: 11/18/18 10:29 Last Admin: 11/18/18 12:55 Dose: 2 gm Cefazolin Sodium (Ancef) Confirm Administered Dose 2 gm .ROUTE .[facility]-MED ONE Stop: 11/18/18 11:55 Morphine Sulfate 8 mg/Epinephrine HCl 0.3 mg/Cefuroxime Sodium 750 mg/Ketorolac Tromethamine 30 mg/Sodium Chloride 27.9 ml 0 mg .XX ONETIME ONE Stop: 11/18/18 07:31 Last Admin: 11/18/18 13:00 Dose: 788.3 mg Diphenhydramine HCl (Benadryl) 25 mg IVPUSH Q6H PRN PRN Reason: pruritis Stop: 11/18/18 20:00 Epinephrine HCl (Adrenalin) Confirm Administered Dose 1 mg .ROUTE .ST-MED ONE Stop: 11/18/18 09:31 Fentanyl (Sublimaze) Confirm Administered Dose 100 mcg .ROUTE .[facility] ONE Stop: 11/18/18 11:44 Fentanyl (Sublimaze) 50 mcg IVPUSH Q5M PRN PRN Reason: Pain Stop: 11/18/18 20:00 Lactated Ringer's (Ringers, Lactated) 1,000 mls @ 125 mls/hr IV ASDIRECTED [facility] Stop: 11/18/18 18:00 Last Admin: 11/18/18 09:50 Dose: 125 mls/hr Cefazolin Sodium/Dextrose 2 gm (/ Premix) 50 mls @ 100 mls/hr IV Q8H [facility] Stop: 11/19/18 12:29 Last Admin: 11/19/18 12:52 Dose: 100 mls/hr Lidocaine HCl (Xylocaine-Mpf 1%) Confirm Administered Dose 4 mls @ as directed .ROUTE .[facility]-MED ONE Stop: 11/18/18 11:44 Lactated Ringer's (Ringers, Lactated) Confirm Administered Dose 1,000 mls @ as directed .ROUTE .[facility]-MED ONE Stop: 11/18/18 12:01 Prochlorperazine Edisylate 10 (mg/ Sodium Chloride) 52 mls @ 150 mls/hr IV Q6H PRN PRN Reason: Nausea/Vomiting Sodium Chloride (Normal Saline) 500 mls @ 999 mls/hr IV .BOLUS ONE Stop: 11/19/18 07:10 Last Admin: 11/19/18 08:37 Dose: 999 mls/hr Magnesium Sulfate 4 gm/ Premix 50 mls @ 12.5 mls/hr IV ONETIME ONE Stop: 11/20/18 13:44 Last Admin: 11/20/18 10:10 Dose: 12.5 mls/hr Potassium Chloride 10 meq/ (Premix) 100 mls @ 100 mls/hr IV Q1H [facility] Stop: 11/20/18 13:44 Last Admin: 11/20/18 13:49 Dose: 100 mls/hr Sodium Chloride (Normal Saline) 1,000 mls @ 50 mls/hr IV ASDIRECTED [facility] Last Admin: 11/20/18 10:03 Dose: 50 mls/hr Sodium Chloride (Normal Saline) 1,000 mls @ 50 mls/hr IV ASDIRECTED PRN PRN Reason: ONLY DURING MAG AND POTAS INFU Last Admin: 11/20/18 11:15 Dose: 50 mls/hr Potassium Chloride 10 meq/ (Premix) 100 mls @ 100 mls/hr IV ASDIRECTED ONE Stop: 11/21/18 09:29 Last Admin: 11/21/18 08:52 Dose: 100 mls/hr Potassium Chloride 10 meq/ (Premix) 100 mls @ 100 mls/hr IV ASDIRECTED ONE Stop: 11/21/18 10:29 Last Admin: 11/21/18 10:50 Dose: 100 mls/hr Potassium Chloride 10 meq/ (Premix) 100 mls @ 100 mls/hr IV ASDIRECTED ONE Stop: 11/21/18 11:29 Last Admin: 11/21/18 12:16 Dose: 100 mls/hr Potassium Chloride 10 meq/ (Premix) 100 mls @ 100 mls/hr IV ASDIRECTED ONE Stop: 11/21/18 12:29 Last Admin: 11/21/18 13:17 Dose: 100 mls/hr Sodium Chloride (Normal Saline) 500 mls @ 50 mls/hr IV ONETIME ONE Stop: 11/21/18 19:01 Last Admin: 11/21/18 09:05 Dose: 50 mls/hr Insulin Glargine (Lantus) [facility] Last Admin: 11/19/18 08:39 Dose: 20 units Iodine (Iodine 2% Mild Tincture) Confirm Administered Dose 30 ml .ROUTE .STK- MED ONE Stop: 11/18/18 10:29 Last Admin: 11/18/18 12:54 Dose: 18 ml Ketamine HCl (Ketalar) Confirm Administered Dose 500 mg .ROUTE .STK-MED ONE Stop: 11/18/18 11:05 Ketorolac Tromethamine (Toradol) 15 mg IVPUSH Q6H PRN PRN Reason: Pain Last Admin: 11/20/18 17:23 Dose: 15 mg Lidocaine/Sodium Bicarbonate (Buffered Lidocaine 1% In Ns 8.4%) 0.25 ml IDERM ONETIME PRN PRN Reason: Prior to IV Start Stop: 11/18/18 18:00 Last Admin: 11/18/18 09:50 Dose: 0.25 ml Ondansetron HCl (Zofran) 4 mg IVPUSH ONETIME PRN PRN Reason: Nausea/Vomiting Stop: 11/18/18 20:00 Oral Electrolytes (Thermotabs) 2 each PO NOW ONE Stop: 11/22/18 07:20 Last Admin: 11/22/18 07:33 Dose: 2 each Oxycodone HCl (Oxycontin) 10 mg PO ONETIME [facility] Stop: 11/18/18 16:00 Last Admin: 11/18/18 10:15 Dose: 10 mg Potassium Chloride (Klor-Con M20) 20 meq PO BID [facility] Last Admin: 11/21/18 08:56 Dose: 20 meq Pregabalin (Lyrica) 50 mg PO ONETIME [facility] Stop: 11/18/18 16:00 Last Admin: 11/18/18 10:15 Dose: 50 mg Propofol (Diprivan 20 Ml) Confirm Administered Dose 200 mg .ROUTE .STK-MED ONE Stop: 11/18/18 11:43 Propofol (Diprivan 20 Ml) Confirm Administered Dose 200 mg .ROUTE .STK-MED ONE Stop: 11/18/18 12:24 Propofol (Diprivan 20 Ml) Confirm Administered Dose 200 mg .ROUTE .STK-MED ONE Stop: 11/18/18 13:03 Ropivacaine (Naropin 0.5%) Confirm Administered Dose 30 ml .ROUTE .STK-MED ONE Stop: 11/18/18 09:31 Sodium Chloride (Saline Flush) 10 ml FLUSH ASDIRECTED PRN PRN Reason: Keep Vein Open Stop: 11/18/18 18:00 Tranexamic Acid (Cyklokapron) Confirm Administered Dose 1,000 mg .ROUTE .STK- MED ONE Stop: 11/18/18 10:29 Last Admin: 11/18/18 13:08 Dose: 1,000 mg Vancomycin HCl (Vancomycin) Confirm Administered Dose 1 gm .ROUTE .STK-MED ONE Stop: 11/18/18 10:29 Last Admin: 11/18/18 13:03 Dose: 1 gm - Exam Wound/Incisions: Dressing Dry and Intact General: Alert, Cooperative, No Acute Distress Lungs: Normal Respiratory Effort Extremities: Other (NVS intact for BLE. Mani's negative.) - Problem List Review Problem List Initiated/Reviewed/Updated: Yes - My Orders Last 24 Hours: Active Orders 24 hr Category Date Time Status Ready for Discharge [RC] PER UNIT ROUTINE Care 11/22/18 11:00 Active BASIC METABOLIC PANEL,BMP [CHEM] AM Lab 11/23/18 05:11 Ordered CBC WITH AUTO DIFF [HEME] AM Lab 11/23/18 05:11 Ordered MAGNESIUM [CHEM] AM Lab 11/23/18 05:11 Ordered SODIUM,NA [CHEM] Routine Lab 11/22/18 12:00 Ordered Potassium Chloride [Klor-Con M20] Med 11/21/18 15:00 Active 40 meq PO DAILY Remove Patch Med 11/21/18 15:00 Active 1 ea TRDERM Q72H Medication Orders Aspirin (Ecotrin) 325 mg PO BID [facility] Last Admin: 11/22/18 09:03 Dose: 325 mg Admin: 11/21/18 21:00 Dose: 325 mg Admin: 11/21/18 08:56 Dose: 325 mg Admin: 11/20/18 21:01 Dose: 325 mg Admin: 11/20/18 09:15 Dose: 325 mg Admin: 11/19/18 22:39 Dose: 325 mg Admin: 11/19/18 08:40 Dose: 325 mg Bisacodyl (Dulcolax) 5 mg PO DAILY PRN PRN Reason: Constipation Cyclobenzaprine HCl (Flexeril) 10 mg PO BID PRN PRN Reason: Spasms Last Admin: 11/22/18 01:16 Dose: 10 mg Admin: 11/21/18 12:19 Dose: 10 mg Admin: 11/20/18 17:26 Dose: 10 mg Admin: 11/19/18 14:58 Dose: 10 mg Docusate Sodium (Colace) 100 mg PO BID [facility] Last Admin: 11/22/18 09:04 Dose: 100 mg Admin: 11/21/18 21:00 Dose: 100 mg Admin: 11/21/18 08:56 Dose: 100 mg Admin: 11/20/18 21:01 Dose: 100 mg Admin: 11/20/18 09:15 Dose: 100 mg Admin: 11/19/18 22:39 Dose: 100 mg Admin: 11/19/18 08:40 Dose: 100 mg Admin: 11/18/18 21:41 Dose: 100 mg Famotidine (Pepcid) 20 mg PO Q12H [facility] Last Admin: 11/22/18 09:03 Dose: 20 mg Admin: 11/21/18 21:01 Dose: 20 mg Admin: 11/21/18 08:56 Dose: 20 mg Admin: 11/20/18 21:01 Dose: 20 mg Admin: 11/20/18 09:14 Dose: 20 mg Admin: 11/19/18 22:39 Dose: 20 mg Admin: 11/19/18 08:40 Dose: 20 mg Admin: 11/18/18 21:41 Dose: 20 mg Insulin Glargine (Lantus) [facility] [place] Last Admin: 11/22/18 08:34 Dose: 40 units Admin: 11/21/18 08:51 Dose: 40 units Admin: 11/20/18 09:15 Dose: 40 units Insulin Human Lispro (Humalog) 0 unit SUBCUT QIDACANDBED [facility]; Protocol Last Admin: 11/22/18 12:16 Dose: 3 units Admin: 11/22/18 08:34 Dose: 2 units Admin: 11/21/18 21:03 Dose: 1 units Admin: 11/21/18 16:33 Dose: 3 units Admin: 11/21/18 11:21 Dose: 2 units Admin: 11/21/18 08:52 Dose: Not Given Admin: 11/20/18 21:04 Dose: 1 units Admin: 11/20/18 17:06 Dose: 2 units Admin: 11/20/18 11:57 Dose: 2 units Admin: 11/20/18 09:14 Dose: 1 units Admin: 11/19/18 22:40 Dose: 2 units Admin: 11/19/18 18:24 Dose: 1 units Admin: 11/19/18 12:55 Dose: 2 units Admin: 11/19/18 08:39 Dose: 1 units Admin: 11/18/18 21:30 Dose: 1 units Admin: 11/18/18 17:11 Dose: 1 units Magnesium Hydroxide (Milk Of Magnesia) 30 ml PO BID PRN PRN Reason: Constipation Magnesium Oxide (Magnesium Oxide) 400 mg PO BID [facility] Last Admin: 11/22/18 09:03 Dose: 400 mg Admin: 11/21/18 21:01 Dose: 400 mg Admin: 11/21/18 08:56 Dose: 400 mg Admin: 11/20/18 21:02 Dose: 400 mg Admin: 11/20/18 10:06 Dose: 400 mg Miscellaneous Information (Remove Patch) 1 ea TRDERM Q72H [facility] Last Admin: 11/21/18 14:39 Dose: Not Given Admin: 11/21/18 13:19 Dose: 1 ea Mometasone Furoate/Formoterol Fumar (Dulera 200-5 Mcg) 2 puff IH BID [facility] Last Admin: 11/22/18 08:14 Dose: 2 puff Admin: 11/21/18 20:13 Dose: 2 puff Admin: 11/21/18 08:15 Dose: 2 puff Admin: 11/20/18 20:43 Dose: 2 puff Admin: 11/20/18 09:32 Dose: 2 puff Admin: 11/19/18 20:28 Dose: 2 puff Admin: 11/19/18 12:57 Dose: Morphine Sulfate (Morphine) 2 mg IVPUSH Q2H PRN PRN Reason: Breakthrough Pain Last Admin: 11/20/18 10:03 Dose: 2 mg Admin: 11/19/18 19:15 Dose: 2 mg Naloxone HCl (Narcan) 0.1 mg IVPUSH Q5M PRN PRN Reason: Oversedation Ondansetron HCl (Zofran) 4 mg IVPUSH Q6H PRN PRN Reason: Nausea/Vomiting Last Admin: 11/18/18 14:32 Dose: 4 mg Oxycodone HCl (Oxycodone) 5 mg PO Q6H PRN PRN Reason: severe pain Last Admin: 11/21/18 11:07 Dose: 5 mg Oxycodone/Acetaminophen (Percocet 325-5 Mg) 1 - 2 tab PO Q4H PRN PRN Reason: Pain Last Admin: 11/22/18 11:30 Dose: 2 tab Admin: 11/22/18 07:33 Dose: 2 tab Admin: 11/22/18 02:41 Dose: 2 tab Admin: 11/21/18 21:01 Dose: 2 tab Admin: 11/21/18 15:46 Dose: 2 tab Admin: 11/21/18 11:06 Dose: 2 tab Admin: 11/21/18 06:36 Dose: 2 tab Admin: 11/20/18 23:32 Dose: 2 tab Admin: 11/20/18 18:53 Dose: 2 tab Admin: 11/20/18 13:53 Dose: 2 tab Admin: 11/20/18 09:14 Dose: 2 tab Admin: 11/20/18 03:50 Dose: 2 tab Admin: 11/19/18 18:27 Dose: 2 tab Admin: 11/19/18 12:51 Dose: 2 tab Admin: 11/19/18 08:41 Dose: 2 tab Admin: 11/18/18 17:41 Dose: 2 tab Potassium Chloride (Klor-Con M20) 40 meq PO DAILY [facility] Last Admin: 11/22/18 09:03 Dose: 40 meq Admin: 11/21/18 15:46 Dose: 40 meq Prochlorperazine Edisylate (Compazine) 10 mg IVPUSH Q6H PRN PRN Reason: NAUSEA/VOMITING Last Admin: 11/18/18 17:37 Dose: 10 mg Scopolamine (Transderm-Scop) 1.5 mg TRDERM Q72H PRN PRN Reason: Nausea Last Admin: 11/18/18 15:32 Dose: 1.5 mg Senna (Senna) 8.6 mg PO BID PRN PRN Reason: Constipation Last Admin: 11/22/18 12:16 Dose: 8.6 mg - Assessment Assessment (Free Text/Narrative):: POD#4 - s/p right TKA - Plan Plan (Free Text/Narrative):: 1. 325mg ASA PO BID, frequent mobility, TEDs. 2. Discharge to [facility] for continued physical therapy. 3. Further orders per Hospitalist service. Hyponatremia noted today, Hospitalist aware. The pt's case was discussed with Dr. Sevilla. Dr. Lopez also contacted today and agreeable to transfer. Notes, labs will be sent.
--- NOTE | 2018-11-22 12:47 | PCM.DCSUM1 ---
Discharge Summary - Hospital Course Brief History: Abel is a 78 yo male who underwent right TKA on 11-18-2018. The procedure was completed under spinal anesthesia. The pt tolerated the procedure well and was admitted to Medical-Surgical Unit under inpatient status. The pt had significant PONV POD#0. This improved on POD#1. Medical management was provided by the Hospitalist service. The pt's blood glucose was closely monitored. On POD#1, 325mg ASA PO BID was initiated. TEDs and SCDs were also used. The pt received Ancef richard-operatively. The pt's surgical wound was dressed with a Mepilex dressing and remained clean and dry. The pt participated in PT and OT. He was allowed to WBAT and used a FWW for mobility. The pt was slow to progress with therapies and decision was made for pt to plan for transfer to [facility] in [place], [place] for continued therapy. On POD#4 , the pt was discharge to [facility]. - Discharge Data Discharge Date: 11/22/18 Discharge Disposition: DC/Tfer to Other 70 Condition: Good - Patient Summary/Data Operative Procedure(s) Performed: right total knee arthoplasty Consults: Consultations 11/18/18 06:47 OT Evaluation and Treatment [CONS] Routine PT Evaluation and Treatment [CONS] Routine 11/18/18 06:49 Consult to Physician [CONS] Routine 11/19/18 10:47 Consult to Case Management/Dough Puncher [CONS] Routine - Patient Instructions Diet: Usual Diet as Tolerated Activity: Apply Ice, As Tolerated, Elevate Extremity, Full Weight Bearing Driving: Do Not Drive Showering/Bathing: May Shower Wound/Incision Care: Keep Operative Site/Wound Site Clean and Dry, Do NOT Change Dressing Notify Provider of: Fever, Increased Pain, Swelling and Redness, Drainage, Nausea and/or Vomiting Other/Special Instructions: Please get up and moving around EVERY HOUR while awake. This helps to prevent blood clots. Please use your walker and have help with mobility as needed. Take a short walk in your home every hour while awake. Please take 325mg Aspirin TWICE daily. The aspirin is being used for blood clot prevention and not for pain management so please do not miss a dose of the medication. You could use a medication like Zantac or Pepcid and a medication like Prilosec or Nexium to protect your stomach while you are using the aspirin. At home, please complete the exercises that you learned during the Hospital stay. Schedule for physical therapy. Use the pain medication as needed. The medication may cause drowsiness and constipation. Contact your primary care provider for instructions if you are constipated. You may use a stool softener like docusate sodium or Colace 100mg twice daily and/or a laxative like Miralax daily for constipation. Increase your water and fiber intake while you are using the pain medication. Discontinue use of the pain medication as soon as able. Please do not use other medications that may cause drowsiness (other pain medications, anxiety pills, cold medications, sleeping pills, etc) while using the prescription pain medication. Do not use alcohol while using the pain medication. You may use acetaminophen or Tylenol for pain management, however, please ensure you are not using over 4000 mg or 4 grams of acetaminophen per day from all sources. Your pain medication has 325mg of acetaminophen per tablet. At this time, please do not use ibuprofen (Motrin, Advil) or naproxen (Aleve) for pain management as you are using the aspirin. When the aspirin course is completed in 4 to 6 weeks, you could use ibuprofen or naproxen for pain management (if this is allowed by your primary care provider). Wear the NEHEMIAH hose during the day and you may remove these at night. Elevate the limb to decrease swelling. Place ice to the area often. Place a towel between your skin and the blue pad. Use the incentive spirometer often. Take deep breaths throughout the day. Please keep the dressing in place until follow-up. Notify the Clinic if the dressing becomes saturated. Increase your protein intake while you are healing. Please closely monitor your blood sugars and notify your primary care provider with abnormal values. Elevated blood sugars increases the risk of infection. Call the Clinic with questions or concerns - [phone]. - Discharge Plan *PRESCRIPTION DRUG MONITORING PROGRAM REVIEWED*: No *COPY OF PRESCRIPTION DRUG MONITORING REPORT IN PATIENT CASSI: No Prescriptions/Med Rec: Acetaminophen/oxyCODONE [Percocet 325-5 MG] 1 - 2 tab PO Q4H PRN #60 tablet PRN Reason: Pain Aspirin [Ecotrin EC] 325 mg PO BID #84 tab.ec Cyclobenzaprine [Flexeril] 10 mg PO BID PRN #30 tablet PRN Reason: Spasms Home Medications: Home Meds Fluticasone/Vilanterol [Breo Ellipta 200-25 MCG Inhalation Kit] 1 puff IH DAILY 11/17/18 [History] Insulin Glarg,Human.Rec.Analog [Lantus] 40 unit SUBCUT QAM 11/17/18 [History] Insulin Lispro [HumaLOG] 8 unit SQ BEDTIME 11/17/18 [History] Potassium Chloride 40 meq PO DAILY 11/17/18 [History] metFORMIN HCl [Metformin HCl] 1,000 mg PO BEDTIME 11/17/18 [History] Acetaminophen/oxyCODONE [Percocet 325-5 MG] 1 - 2 tab PO Q4H PRN #60 tablet [Rx] Aspirin [Ecotrin EC] 325 mg PO BID #84 tab.ec 11/19/18 [Rx] Bisacodyl [Dulcolax] 5 mg PO DAILY PRN tablet 11/19/18 [Rx] Cyclobenzaprine [Flexeril] 10 mg PO BID PRN #30 tablet 11/19/18 [Rx] Docusate Sodium [Colace] 100 mg PO BID cap 11/19/18 [Rx] Famotidine [Pepcid] 20 mg PO Q12H tablet 11/19/18 [Rx] Magnesium Hydroxide [Milk of Magnesia] 30 ml PO BID PRN cup 11/19/18 [Rx] Remove Patch 1 ea TRDERM Q72H each 11/19/18 [Rx] Sennosides [Senna] 8.6 mg PO BID PRN tablet 11/19/18 [Rx] Referrals: Echo Morin PA-C [Physician Contracts Paralegal] - (Please follow up with Echo Morin on 11/24/18 at 130pm, and a second follow up on 12/03/18 at 1130.) - Discharge Summary/Plan Comment DC Time >30 min.: No - Patient Data Vitals - Most Recent: Last Vital Signs Temp 98.4 F 11/22/18 08:59 Pulse 80 11/22/18 08:59 Resp 20 11/22/18 08:59 BP 134/58 L 11/22/18 09:06 Pulse Ox 94 L 11/22/18 08:59 Weight - Most Recent: 217 lb 11.2 oz I&O - Last 24 hours: Intake & Output 11/21/18 11/22/18 11/22/18 22:59 06:59 14:59 Intake Total 1720 1400 Output Total 1200 1245 Balance 520 155 Lab Results - Last 24 hrs: Laboratory Results - last 24 hr 11/21/18 11/21/18 11/22/18 Range/Units 16:32 20:58 04:17 WBC 7.45 (4.23-9.07) K/mm3 RBC 3.37 L (4.63-6.08) M/mm3 Hgb 10.5 L (13.7-17.5) gm/L Hct 31.1 L (40.1-51.0) % MCV 92.3 H (79.0-92.2) fl MCH 31.2 (25.7-32.2) pg MCHC 33.8 (32.2-35.5) g/dl RDW Std Deviation 42.5 (35.1-43.9) fL Plt Count 230 (163-337) K/mm3 MPV 10.5 (9.4-12.3) fl Neut % (Auto) 70.3 H (34.0-67.9) % Lymph % (Auto) 11.7 L (21.8-53.1) % [place] % (Auto) 8.3 (5.3-12.2) % Eos % (Auto) 9.1 H (0.8-7.0) Baso % (Auto) 0.1 (0.1-1.2) % Neut # (Auto) 5.23 (1.78-5.38) K/mm3 Lymph # (Auto) 0.87 L (1.32-3.57) K/mm3 [place] # (Auto) 0.62 (0.30-0.82) K/mm3 Eos # (Auto) 0.68 H (0.04-0.54) K/mm3 Baso # (Auto) 0.01 (0.01-0.08) K/mm3 Sodium (136-145) mEq/L Potassium (3.5-5.1) mEq/L Chloride (98-107) mEq/L Carbon Dioxide (21-32) mEq/L Anion Gap (5-15) BUN (7-18) mg/dL Creatinine (0.7-1.3) mg/dL Est Cr Clr Drug Dosing mL/min Estimated GFR (MDRD) (>60) mL/min BUN/Creatinine Ratio (14-18) Glucose (83-115) mg/dL POC Glucose 261 H 176 H (83-110) mg/dL Calcium (8.5-10.1) mg/dL Magnesium (1.8-2.4) mg/dl 11/22/18 11/22/18 11/22/18 Range/Units 04:17 06:21 11:56 WBC (4.23-9.07) K/mm3 RBC (4.63-6.08) M/mm3 Hgb (13.7-17.5) gm/L Hct (40.1-51.0) % MCV (79.0-92.2) fl MCH (25.7-32.2) pg MCHC (32.2-35.5) g/dl RDW Std Deviation (35.1-43.9) fL Plt Count (163-337) K/mm3 MPV (9.4-12.3) fl Neut % (Auto) (34.0-67.9) % Lymph % (Auto) (21.8-53.1) % [place] % (Auto) (5.3-12.2) % Eos % (Auto) (0.8-7.0) Baso % (Auto) (0.1-1.2) % Neut # (Auto) (1.78-5.38) K/mm3 Lymph # (Auto) (1.32-3.57) K/mm3 [place] # (Auto) (0.30-0.82) K/mm3 Eos # (Auto) (0.04-0.54) K/mm3 Baso # (Auto) (0.01-0.08) K/mm3 Sodium 129 L (136-145) mEq/L Potassium 3.5 (3.5-5.1) mEq/L Chloride 97 L (98-107) mEq/L Carbon Dioxide 28 (21-32) mEq/L Anion Gap 7.5 (5-15) BUN 20 H (7-18) mg/dL Creatinine 1.3 (0.7-1.3) mg/dL Est Cr Clr Drug Dosing 49.91 mL/min Estimated GFR (MDRD) 54 (>60) mL/min BUN/Creatinine Ratio 15.4 (14-18) Glucose 258 H (83-115) mg/dL POC Glucose 210 H 284 H (83-110) mg/dL Calcium 8.2 L (8.5-10.1) mg/dL Magnesium 1.7 L (1.8-2.4) mg/dl Med Orders - Current: Current Medications Aspirin (Ecotrin) 325 mg PO BID [facility] Last Admin: 11/22/18 09:03 Dose: 325 mg Bisacodyl (Dulcolax) 5 mg PO DAILY PRN PRN Reason: Constipation Cyclobenzaprine HCl (Flexeril) 10 mg PO BID PRN PRN Reason: Spasms Last Admin: 11/22/18 01:16 Dose: 10 mg Docusate Sodium (Colace) 100 mg PO BID [facility] Last Admin: 11/22/18 09:04 Dose: 100 mg Famotidine (Pepcid) 20 mg PO Q12H [facility] Last Admin: 11/22/18 09:03 Dose: 20 mg Insulin Glargine (Lantus) 40 unit SUBCUT QAM [facility] Last Admin: 11/22/18 08:34 Dose: 40 units Insulin Human Lispro (Humalog) 0 unit SUBCUT QIDACANDBED [facility]; Protocol Last Admin: 11/22/18 12:16 Dose: 3 units Magnesium Hydroxide (Milk Of Magnesia) 30 ml PO BID PRN PRN Reason: Constipation Magnesium Oxide (Magnesium Oxide) 400 mg PO BID [facility] Last Admin: 11/22/18 09:03 Dose: 400 mg Miscellaneous Information (Remove Patch) 1 ea TRDERM Q72H [facility] Last Admin: 11/21/18 14:39 Dose: Not Given Mometasone Furoate/Formoterol Fumar (Dulera 200-5 Mcg) 2 puff IH BID [facility] Last Admin: 11/22/18 08:14 Dose: 2 puff Morphine Sulfate (Morphine) 2 mg IVPUSH Q2H PRN PRN Reason: Breakthrough Pain Last Admin: 11/20/18 10:03 Dose: 2 mg Naloxone HCl (Narcan) 0.1 mg IVPUSH Q5M PRN PRN Reason: Oversedation Ondansetron HCl (Zofran) 4 mg IVPUSH Q6H PRN PRN Reason: Nausea/Vomiting Last Admin: 11/18/18 14:32 Dose: 4 mg Oxycodone HCl (Oxycodone) 5 mg PO Q6H PRN PRN Reason: severe pain Last Admin: 11/21/18 11:07 Dose: 5 mg Oxycodone/Acetaminophen (Percocet 325-5 Mg) 1 - 2 tab PO Q4H PRN PRN Reason: Pain Last Admin: 11/22/18 11:30 Dose: 2 tab Potassium Chloride (Klor-Con M20) 40 meq PO DAILY [facility] Last Admin: 11/22/18 09:03 Dose: 40 meq Prochlorperazine Edisylate (Compazine) 10 mg IVPUSH Q6H PRN PRN Reason: NAUSEA/VOMITING Last Admin: 11/18/18 17:37 Dose: 10 mg Scopolamine (Transderm-Scop) 1.5 mg TRDERM Q72H PRN PRN Reason: Nausea Last Admin: 11/18/18 15:32 Dose: 1.5 mg Senna (Senna) 8.6 mg PO BID PRN PRN Reason: Constipation Last Admin: 11/22/18 12:16 Dose: 8.6 mg Discontinued Medications Acetaminophen (Tylenol) 975 mg PO ONETIME [facility] Stop: 11/18/18 16:00 Last Admin: 11/18/18 10:15 Dose: 975 mg Bupivacaine HCl (Marcaine 0.25%) Confirm Administered Dose 30 ml .ROUTE .STK- MED ONE Stop: 11/18/18 10:29 Last Admin: 11/18/18 13:01 Dose: 30 ml Cefazolin Sodium (Ancef) Confirm Administered Dose 2 gm .ROUTE .STK-MED ONE Stop: 11/18/18 10:29 Last Admin: 11/18/18 12:55 Dose: 2 gm Cefazolin Sodium (Ancef) Confirm Administered Dose 2 gm .ROUTE .STK-MED ONE Stop: 11/18/18 11:55 Morphine Sulfate 8 mg/Epinephrine HCl 0.3 mg/Cefuroxime Sodium 750 mg/Ketorolac Tromethamine 30 mg/Sodium Chloride 27.9 ml 0 mg .XX ONETIME ONE Stop: 11/18/18 07:31 Last Admin: 11/18/18 13:00 Dose: 788.3 mg Diphenhydramine HCl (Benadryl) 25 mg IVPUSH Q6H PRN PRN Reason: pruritis Stop: 11/18/18 20:00 Epinephrine HCl (Adrenalin) Confirm Administered Dose 1 mg .ROUTE .STK-MED ONE Stop: 11/18/18 09:31 Fentanyl (Sublimaze) Confirm Administered Dose 100 mcg .ROUTE .STK-MED ONE Stop: 11/18/18 11:44 Fentanyl (Sublimaze) 50 mcg IVPUSH Q5M PRN PRN Reason: Pain Stop: 11/18/18 20:00 Lactated Ringer's (Ringers, Lactated) 1,000 mls @ 125 mls/hr IV ASDIRECTED [facility]LEX Stop: 11/18/18 18:00 Last Admin: 11/18/18 09:50 Dose: 125 mls/hr Cefazolin Sodium/Dextrose 2 gm (/ Premix) 50 mls @ 100 mls/hr IV Q8H [facility] Stop: 11/19/18 12:29 Last Admin: 11/19/18 12:52 Dose: 100 mls/hr Lidocaine HCl (Xylocaine-Mpf 1%) Confirm Administered Dose 4 mls @ as directed .ROUTE .STK-MED ONE Stop: 11/18/18 11:44 Lactated Ringer's (Ringers, Lactated) Confirm Administered Dose 1,000 mls @ as directed .ROUTE .STK-MED ONE Stop: 11/18/18 12:01 Prochlorperazine Edisylate 10 (mg/ Sodium Chloride) 52 mls @ 150 mls/hr IV Q6H PRN PRN Reason: Nausea/Vomiting Sodium Chloride (Normal Saline) 500 mls @ 999 mls/hr IV .BOLUS ONE Stop: 11/19/18 07:10 Last Admin: 11/19/18 08:37 Dose: 999 mls/hr Magnesium Sulfate 4 gm/ Premix 50 mls @ 12.5 mls/hr IV ONETIME ONE Stop: 11/20/18 13:44 Last Admin: 11/20/18 10:10 Dose: 12.5 mls/hr Potassium Chloride 10 meq/ (Premix) 100 mls @ 100 mls/hr IV Q1H [facility] Stop: 11/20/18 13:44 Last Admin: 11/20/18 13:49 Dose: 100 mls/hr Sodium Chloride (Normal Saline) 1,000 mls @ 50 mls/hr IV ASDIRECTED ALEX Last Admin: 11/20/18 10:03 Dose: 50 mls/hr Sodium Chloride (Normal Saline) 1,000 mls @ 50 mls/hr IV ASDIRECTED PRN PRN Reason: ONLY DURING MAG AND POTAS INFU Last Admin: 11/20/18 11:15 Dose: 50 mls/hr Potassium Chloride 10 meq/ (Premix) 100 mls @ 100 mls/hr IV ASDIRECTED ONE Stop: 11/21/18 09:29 Last Admin: 11/21/18 08:52 Dose: 100 mls/hr Potassium Chloride 10 meq/ (Premix) 100 mls @ 100 mls/hr IV ASDIRECTED ONE Stop: 11/21/18 10:29 Last Admin: 11/21/18 10:50 Dose: 100 mls/hr Potassium Chloride 10 meq/ (Premix) 100 mls @ 100 mls/hr IV ASDIRECTED ONE Stop: 11/21/18 11:29 Last Admin: 11/21/18 12:16 Dose: 100 mls/hr Potassium Chloride 10 meq/ (Premix) 100 mls @ 100 mls/hr IV ASDIRECTED ONE Stop: 11/21/18 12:29 Last Admin: 11/21/18 13:17 Dose: 100 mls/hr Sodium Chloride (Normal Saline) 500 mls @ 50 mls/hr IV ONETIME ONE Stop: 11/21/18 19:01 Last Admin: 11/21/18 09:05 Dose: 50 mls/hr Insulin Glarg[facility] ([facility]us) [facility] Last Admin: 11/19/18 08:39 Dose: 20 units Iodine (Iodine 2% Mild Tincture) Confirm Administered Dose 30 ml .ROUTE .STK- MED ONE Stop: 11/18/18 10:29 Last Admin: 11/18/18 12:54 Dose: 18 ml Ketamine HCl (Ketalar) Confirm Administered Dose 500 mg .ROUTE .STK-MED ONE Stop: 11/18/18 11:05 Ketorolac Tromethamine (Toradol) 15 mg IVPUSH Q6H PRN PRN Reason: Pain Last Admin: 11/20/18 17:23 Dose: 15 mg Lidocaine/Sodium Bicarbonate (Buffered Lidocaine 1% In Ns 8.4%) 0.25 ml IDERM ONETIME PRN PRN Reason: Prior to IV Start Stop: 11/18/18 18:00 Last Admin: 11/18/18 09:50 Dose: 0.25 ml Ondansetron HCl (Zofran) 4 mg IVPUSH ONETIME PRN PRN Reason: Nausea/Vomiting Stop: 11/18/18 20:00 Oral Electrolytes (Thermotabs) 2 each PO NOW ONE Stop: 11/22/18 07:20 Last Admin: 11/22/18 07:33 Dose: 2 each Oxycodone HCl (Oxycontin) 10 mg PO ONETIME [facility] Stop: 11/18/18 16:00 Last Admin: 11/18/18 10:15 Dose: 10 mg Potassium Chloride (Klor-Con M20) 20 meq PO BID [facility] Last Admin: 11/21/18 08:56 Dose: 20 meq Pregabalin (Lyrica) 50 mg PO ONETIME [facility] Stop: 11/18/18 16:00 Last Admin: 11/18/18 10:15 Dose: 50 mg Propofol (Diprivan 20 Ml) Confirm Administered Dose 200 mg .ROUTE .STK-MED ONE Stop: 11/18/18 11:43 Propofol (Diprivan 20 Ml) Confirm Administered Dose 200 mg .ROUTE .STK-MED ONE Stop: 11/18/18 12:24 Propofol (Diprivan 20 Ml) Confirm Administered Dose 200 mg .ROUTE .STK-MED ONE Stop: 11/18/18 13:03 Ropivacaine (Naropin 0.5%) Confirm Administered Dose 30 ml .ROUTE .STK-MED ONE Stop: 11/18/18 09:31 Sodium Chloride (Saline Flush) 10 ml FLUSH ASDIRECTED PRN PRN Reason: Keep Vein Open Stop: 11/18/18 18:00 Tranexamic Acid (Cyklokapron) Confirm Administered Dose 1,000 mg .ROUTE .STK- MED ONE Stop: 11/18/18 10:29 Last Admin: 11/18/18 13:08 Dose: 1,000 mg Vancomycin HCl (Vancomycin) Confirm Administered Dose 1 gm .ROUTE .STK-MED ONE Stop: 11/18/18 10:29 Last Admin: 11/18/18 13:03 Dose: 1 gm
--- NOTE | 2018-11-22 13:15 | PCM.CONSN ---
- General Info Date of Service: 11/22/18 Admission Dx/Problem (Free Text): Admission Diagnosis/Problem Admission Diagnosis/Problem Osteoarthritis of knee Subjective Update: 11/19/18: In to see Abel. He has been a 2 assist this AM. PT/OT is still unsure of how he will do at home. He will likely need to stay at least tonight. Unfortunately he was nauseated and dry heaving yesterday evening for most of the day. This limited his oral intake. His creatinine was elevated this AM and his GFR has decreased. 500mL fluid bolus given with 100mL NS thereafter until 1L is infused. He has been eating well today thus far. Repeat labs will be ordered tomorrow to re-check kidney function. We will monitor his blood sugars and may need his insulin adjusted again now that he is eating. CM/SW consulted for discharge planning. 11/20/2018 Patient continues to have pain, but this is being covered by primary team and orthopedics. He has no more nausea or vomiting. He does have some electrolyte problems with a low potassium at 2.7 and magnesium 1.1. November 21, 2018 Patient is improving. Continued hypokalemia with potassium of 3.0. Magnesium is normal today. November 22, 2018 Patient is doing well. Potassium magnesium are both now normal, but his sodium initially was low at 129. A repeat was 133. Patient is asymptomatic and ready for discharge. Functional Status: Reports: Pain Controlled - Review of Systems General: Reports: No Symptoms HEENT: Reports: No Symptoms Pulmonary: Reports: No Symptoms Cardiovascular: Reports: No Symptoms Gastrointestinal: Reports: No Symptoms - Patient Data Vitals - Most Recent: Last Vital Signs Temp 98.4 F 11/22/18 08:59 Pulse 80 11/22/18 08:59 Resp 20 11/22/18 08:59 BP 134/58 L 11/22/18 09:06 Pulse Ox 94 L 11/22/18 08:59 Weight - Most Recent: 217 lb 11.2 oz I&O - Last 24 Hours: Intake & Output 11/21/18 11/22/18 11/22/18 22:59 06:59 14:59 Intake Total 1720 1400 Output Total 1200 1245 Balance 520 155 Lab Results Last 24 Hours: Laboratory Results - last 24 hr 11/21/18 11/21/18 11/22/18 Range/Units 16:32 20:58 04:17 WBC 7.45 (4.23-9.07) K/mm3 RBC 3.37 L (4.63-6.08) M/mm3 Hgb 10.5 L (13.7-17.5) gm/L Hct 31.1 L (40.1-51.0) % MCV 92.3 H (79.0-92.2) fl MCH 31.2 (25.7-32.2) pg MCHC 33.8 (32.2-35.5) g/dl RDW Std Deviation 42.5 (35.1-43.9) fL Plt Count 230 (163-337) K/mm3 MPV 10.5 (9.4-12.3) fl Neut % (Auto) 70.3 H (34.0-67.9) % Lymph % (Auto) 11.7 L (21.8-53.1) % Scurry % (Auto) 8.3 (5.3-12.2) % Eos % (Auto) 9.1 H (0.8-7.0) Baso % (Auto) 0.1 (0.1-1.2) % Neut # (Auto) 5.23 (1.78-5.38) K/mm3 Lymph # (Auto) 0.87 L (1.32-3.57) K/mm3 Scurry # (Auto) 0.62 (0.30-0.82) K/mm3 Eos # (Auto) 0.68 H (0.04-0.54) K/mm3 Baso # (Auto) 0.01 (0.01-0.08) K/mm3 Sodium (136-145) mEq/L Potassium (3.5-5.1) mEq/L Chloride (98-107) mEq/L Carbon Dioxide (21-32) mEq/L Anion Gap (5-15) BUN (7-18) mg/dL Creatinine (0.7-1.3) mg/dL Est Cr Clr Drug Dosing mL/min Estimated GFR (MDRD) (>60) mL/min BUN/Creatinine Ratio (14-18) Glucose (83-115) mg/dL POC Glucose 261 H 176 H (83-110) mg/dL Calcium (8.5-10.1) mg/dL Magnesium (1.8-2.4) mg/dl 11/22/18 11/22/18 11/22/18 Range/Units 04:17 06:21 11:56 WBC (4.23-9.07) K/mm3 RBC (4.63-6.08) M/mm3 Hgb (13.7-17.5) gm/L Hct (40.1-51.0) % MCV (79.0-92.2) fl MCH (25.7-32.2) pg MCHC (32.2-35.5) g/dl RDW Std Deviation (35.1-43.9) fL Plt Count (163-337) K/mm3 MPV (9.4-12.3) fl Neut % (Auto) (34.0-67.9) % Lymph % (Auto) (21.8-53.1) % Scurry % (Auto) (5.3-12.2) % Eos % (Auto) (0.8-7.0) Baso % (Auto) (0.1-1.2) % Neut # (Auto) (1.78-5.38) K/mm3 Lymph # (Auto) (1.32-3.57) K/mm3 Scurry # (Auto) (0.30-0.82) K/mm3 Eos # (Auto) (0.04-0.54) K/mm3 Baso # (Auto) (0.01-0.08) K/mm3 Sodium 129 L (136-145) mEq/L Potassium 3.5 (3.5-5.1) mEq/L Chloride 97 L (98-107) mEq/L Carbon Dioxide 28 (21-32) mEq/L Anion Gap 7.5 (5-15) BUN 20 H (7-18) mg/dL Creatinine 1.3 (0.7-1.3) mg/dL Est Cr Clr Drug Dosing 49.91 mL/min Estimated GFR (MDRD) 54 (>60) mL/min BUN/Creatinine Ratio 15.4 (14-18) Glucose 258 H (83-115) mg/dL POC Glucose 210 H 284 H (83-110) mg/dL Calcium 8.2 L (8.5-10.1) mg/dL Magnesium 1.7 L (1.8-2.4) mg/dl 11/22/18 Range/Units 12:04 WBC (4.23-9.07) K/mm3 RBC (4.63-6.08) M/mm3 Hgb (13.7-17.5) gm/L Hct (40.1-51.0) % MCV (79.0-92.2) fl MCH (25.7-32.2) pg MCHC (32.2-35.5) g/dl RDW Std Deviation (35.1-43.9) fL Plt Count (163-337) K/mm3 MPV (9.4-12.3) fl Neut % (Auto) (34.0-67.9) % Lymph % (Auto) (21.8-53.1) % Scurry % (Auto) (5.3-12.2) % Eos % (Auto) (0.8-7.0) Baso % (Auto) (0.1-1.2) % Neut # (Auto) (1.78-5.38) K/mm3 Lymph # (Auto) (1.32-3.57) K/mm3 Scurry # (Auto) (0.30-0.82) K/mm3 Eos # (Auto) (0.04-0.54) K/mm3 Baso # (Auto) (0.01-0.08) K/mm3 Sodium 133 L (136-145) mEq/L Potassium (3.5-5.1) mEq/L Chloride (98-107) mEq/L Carbon Dioxide (21-32) mEq/L Anion Gap (5-15) BUN (7-18) mg/dL Creatinine (0.7-1.3) mg/dL Est Cr Clr Drug Dosing mL/min Estimated GFR (MDRD) (>60) mL/min BUN/Creatinine Ratio (14-18) Glucose (83-115) mg/dL POC Glucose (83-110) mg/dL Calcium (8.5-10.1) mg/dL Magnesium (1.8-2.4) mg/dl Med Orders - Current: Current Medications Aspirin (Ecotrin) 325 mg PO BID ALEX Last Admin: 11/22/18 09:03 Dose: 325 mg Bisacodyl (Dulcolax) 5 mg PO DAILY PRN PRN Reason: Constipation Cyclobenzaprine HCl (Flexeril) 10 mg PO BID PRN PRN Reason: Spasms Last Admin: 11/22/18 01:16 Dose: 10 mg Docusate Sodium (Colace) 100 mg PO BID [facility] Last Admin: 11/22/18 09:04 Dose: 100 mg Famotidine (Pepcid) 20 mg PO Q12H [facility] Last Admin: 11/22/18 09:03 Dose: 20 mg Insulin Glargine (Lantus) 40 unit SUBCUT QAM [facility] Last Admin: 11/22/18 08:34 Dose: 40 units Insulin Human Lispro (Humalog) 0 unit SUBCUT QIDACANDBED [facility]; Protocol Last Admin: 11/22/18 12:16 Dose: 3 units Magnesium Hydroxide (Milk Of Magnesia) 30 ml PO BID PRN PRN Reason: Constipation Magnesium Oxide (Magnesium Oxide) 400 mg PO BID [facility] Last Admin: 11/22/18 09:03 Dose: 400 mg Miscellaneous Information (Remove Patch) 1 ea TRDERM Q72H [facility] Last Admin: 11/21/18 14:39 Dose: Not Given Mometasone Furoate/Formoterol Fumar (Dulera 200-5 Mcg) 2 puff IH BID [facility] Last Admin: 11/22/18 08:14 Dose: 2 puff Morphine Sulfate (Morphine) 2 mg IVPUSH Q2H PRN PRN Reason: Breakthrough Pain Last Admin: 11/20/18 10:03 Dose: 2 mg Naloxone HCl (Narcan) 0.1 mg IVPUSH Q5M PRN PRN Reason: Oversedation Ondansetron HCl (Zofran) 4 mg IVPUSH Q6H PRN PRN Reason: Nausea/Vomiting Last Admin: 11/18/18 14:32 Dose: 4 mg Oxycodone HCl (Oxycodone) 5 mg PO Q6H PRN PRN Reason: severe pain Last Admin: 11/21/18 11:07 Dose: 5 mg Oxycodone/Acetaminophen (Percocet 325-5 Mg) 1 - 2 tab PO Q4H PRN PRN Reason: Pain Last Admin: 11/22/18 11:30 Dose: 2 tab Potassium Chloride (Klor-Con M20) 40 meq PO DAILY [facility] Last Admin: 11/22/18 09:03 Dose: 40 meq Prochlorperazine Edisylate (Compazine) 10 mg IVPUSH Q6H PRN PRN Reason: NAUSEA/VOMITING Last Admin: 11/18/18 17:37 Dose: 10 mg Scopolamine (Transderm-Scop) 1.5 mg TRDERM Q72H PRN PRN Reason: Nausea Last Admin: 11/18/18 15:32 Dose: 1.5 mg Senna (Senna) 8.6 mg PO BID PRN PRN Reason: Constipation Last Admin: 11/22/18 12:16 Dose: 8.6 mg Discontinued Medications Acetaminophen (Tylenol) 975 mg PO ONETIME ALEX Stop: 11/18/18 16:00 Last Admin: 11/18/18 10:15 Dose: 975 mg Bupivacaine HCl (Marcaine 0.25%) Confirm Administered Dose 30 ml .ROUTE .STK- MED ONE Stop: 11/18/18 10:29 Last Admin: 11/18/18 13:01 Dose: 30 ml Cefazolin Sodium (Ancef) Confirm Administered Dose 2 gm .ROUTE .STK-MED ONE Stop: 11/18/18 10:29 Last Admin: 11/18/18 12:55 Dose: 2 gm Cefazolin Sodium (Ancef) Confirm Administered Dose 2 gm .ROUTE .STK-MED ONE Stop: 11/18/18 11:55 Morphine Sulfate 8 mg/Epinephrine HCl 0.3 mg/Cefuroxime Sodium 750 mg/Ketorolac Tromethamine 30 mg/Sodium Chloride 27.9 ml 0 mg .XX ONETIME ONE Stop: 11/18/18 07:31 Last Admin: 11/18/18 13:00 Dose: 788.3 mg Diphenhydramine HCl (Benadryl) 25 mg IVPUSH Q6H PRN PRN Reason: pruritis Stop: 11/18/18 20:00 Epinephrine HCl (Adrenalin) Confirm Administered Dose 1 mg .ROUTE .STK-MED ONE Stop: 11/18/18 09:31 Fentanyl (Sublimaze) Confirm Administered Dose 100 mcg .ROUTE .STK-MED ONE Stop: 11/18/18 11:44 Fentanyl (Sublimaze) 50 mcg IVPUSH Q5M PRN PRN Reason: Pain Stop: 11/18/18 20:00 Lactated Ringer's (Ringers, Lactated) 1,000 mls @ 125 mls/hr IV ASDIRECTED ALEX Stop: 11/18/18 18:00 Last Admin: 11/18/18 09:50 Dose: 125 mls/hr Cefazolin Sodium/Dextrose 2 gm (/ Premix) 50 mls @ 100 mls/hr IV Q8H [facility] Stop: 11/19/18 12:29 Last Admin: 11/19/18 12:52 Dose: 100 mls/hr Lidocaine HCl (Xylocaine-Mpf 1%) Confirm Administered Dose 4 mls @ as directed .ROUTE .STK-MED ONE Stop: 11/18/18 11:44 Lactated Ringer's (Ringers, Lactated) Confirm Administered Dose 1,000 mls @ as directed .ROUTE .STK-MED ONE Stop: 11/18/18 12:01 Prochlorperazine Edisylate 10 (mg/ Sodium Chloride) 52 mls @ 150 mls/hr IV Q6H PRN PRN Reason: Nausea/Vomiting Sodium Chloride (Normal Saline) 500 mls @ 999 mls/hr IV .BOLUS ONE Stop: 11/19/18 07:10 Last Admin: 11/19/18 08:37 Dose: 999 mls/hr Magnesium Sulfate 4 gm/ Premix 50 mls @ 12.5 mls/hr IV ONETIME ONE Stop: 11/20/18 13:44 Last Admin: 11/20/18 10:10 Dose: 12.5 mls/hr Potassium Chloride 10 meq/ (Premix) 100 mls @ 100 mls/hr IV Q1H [facility] Stop: 11/20/18 13:44 Last Admin: 11/20/18 13:49 Dose: 100 mls/hr Sodium Chloride (Normal Saline) 1,000 mls @ 50 mls/hr IV ASDIRECTED ALEX Last Admin: 11/20/18 10:03 Dose: 50 mls/hr Sodium Chloride (Normal Saline) 1,000 mls @ 50 mls/hr IV ASDIRECTED PRN PRN Reason: ONLY DURING MAG AND POTAS INFU Last Admin: 11/20/18 11:15 Dose: 50 mls/hr Potassium Chloride 10 meq/ (Premix) 100 mls @ 100 mls/hr IV ASDIRECTED ONE Stop: 11/21/18 09:29 Last Admin: 11/21/18 08:52 Dose: 100 mls/hr Potassium Chloride 10 meq/ (Premix) 100 mls @ 100 mls/hr IV ASDIRECTED ONE Stop: 11/21/18 10:29 Last Admin: 11/21/18 10:50 Dose: 100 mls/hr Potassium Chloride 10 meq/ (Premix) 100 mls @ 100 mls/hr IV ASDIRECTED ONE Stop: 11/21/18 11:29 Last Admin: 11/21/18 12:16 Dose: 100 mls/hr Potassium Chloride 10 meq/ (Premix) 100 mls @ 100 mls/hr IV ASDIRECTED ONE Stop: 11/21/18 12:29 Last Admin: 11/21/18 13:17 Dose: 100 mls/hr Sodium Chloride (Normal Saline) 500 mls @ 50 mls/hr IV ONETIME ONE Stop: 11/21/18 19:01 Last Admin: 11/21/18 09:05 Dose: 50 mls/hr [facility]ulin [facility] ([facility]us) [facility] [place] Admin: 11/19/18 08:39 Dose: 20 units Iodine (Iodine 2% Mild Tincture) Confirm Administered Dose 30 ml .ROUTE .STK- MED ONE Stop: 11/18/18 10:29 Last Admin: 11/18/18 12:54 Dose: 18 ml Ketamine HCl (Ketalar) Confirm Administered Dose 500 mg .ROUTE .STK-MED ONE Stop: 11/18/18 11:05 Ketorolac Tromethamine (Toradol) 15 mg IVPUSH Q6H PRN PRN Reason: Pain Last Admin: 11/20/18 17:23 Dose: 15 mg Lidocaine/Sodium Bicarbonate (Buffered Lidocaine 1% In Ns 8.4%) 0.25 ml IDERM ONETIME PRN PRN Reason: Prior to IV Start Stop: 11/18/18 18:00 Last Admin: 11/18/18 09:50 Dose: 0.25 ml Ondansetron HCl (Zofran) 4 mg IVPUSH ONETIME PRN PRN Reason: Nausea/Vomiting Stop: 11/18/18 20:00 Oral Electrolytes (Thermotabs) 2 each PO NOW ONE Stop: 11/22/18 07:20 Last Admin: 11/22/18 07:33 Dose: 2 each Oxycodone HCl (Oxycontin) 10 mg PO ONETIME [facility] Stop: 11/18/18 16:00 Last Admin: 11/18/18 10:15 Dose: 10 mg Potassium Chloride (Klor-Con M20) 20 meq PO BID [facility] Last Admin: 11/21/18 08:56 Dose: 20 meq Pregabalin (Lyrica) 50 mg PO ONETIME [facility] Stop: 11/18/18 16:00 Last Admin: 11/18/18 10:15 Dose: 50 mg Propofol (Diprivan 20 Ml) Confirm Administered Dose 200 mg .ROUTE .STK-MED ONE Stop: 11/18/18 11:43 Propofol (Diprivan 20 Ml) Confirm Administered Dose 200 mg .ROUTE .STK-MED ONE Stop: 11/18/18 12:24 Propofol (Diprivan 20 Ml) Confirm Administered Dose 200 mg .ROUTE .STK-MED ONE Stop: 11/18/18 13:03 Ropivacaine (Naropin 0.5%) Confirm Administered Dose 30 ml .ROUTE .STK-MED ONE Stop: 11/18/18 09:31 Sodium Chloride (Saline Flush) 10 ml FLUSH ASDIRECTED PRN PRN Reason: Keep Vein Open Stop: 11/18/18 18:00 Tranexamic Acid (Cyklokapron) Confirm Administered Dose 1,000 mg .ROUTE .STK- MED ONE Stop: 11/18/18 10:29 Last Admin: 11/18/18 13:08 Dose: 1,000 mg Vancomycin HCl (Vancomycin) Confirm Administered Dose 1 gm .ROUTE .STK-MED ONE Stop: 11/18/18 10:29 Last Admin: 11/18/18 13:03 Dose: 1 gm - Exam General: Alert, Oriented HEENT: Pupils Equal Neck: Supple Lungs: Clear to Auscultation, Normal Respiratory Effort Cardiovascular: Regular Rate, Regular Rhythm GI/Abdominal Exam: Normal Bowel Sounds, Soft, Non-Tender, No Organomegaly, No Distention Skin: Warm, Dry Neurological: No New Focal Deficit Consult PN Assessment/Plan Procedures: Procedures MR-STAPH DNA AMP PROBE (11/11/18) Problem List Initiated/Reviewed/Updated: Yes My Orders Last 24 Hours: My Active Orders 11/21/18 15:00 Potassium Chloride [Klor-Con M20] 40 meq PO DAILY Remove Patch 1 ea TRDERM Q72H Plan: I/P: Acute: S/P right total knee arthroplasty - post-operative day 3 -DVT prophylaxis and pain management per primary care team -Home medications reviewed - multiple medications held -Vital signs stable -Echo from 03/05/19: LVEF of 50-55%; Mild AV regurgitation; Moderate MV regurgitation Osteoarthritis of right knee -Pain management per primary care team AVE -Creatinine as above - improving -BUN as above - improvig -Fluid bolus given yesterday -Encourage oral hydration hyponatremia - Sodium 133. Follow-up as outpatient. 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 His PCP is Dr. Lopez. Thank you for allowing us to participate in the care of this patient!!
== END 2018-11-22 13:35 | disposition other institution (70) | DRG 470 ==
LOC: JD.SDS 09:10 → JD.MS 15:59 → JD.SDS 16:00
PROVIDERS: ADMIT Orthopaedic Surgery; ATTEND Orthopaedic Surgery
PROC: 0SRC0J9 Replacement of Right Knee Joint with Synthetic Substitute, Cemented, Open Approach (ICD-10-PCS; principal; 2018-11-18)
DX: M17.11 Unilateral primary osteoarthritis, right knee (principal); N17.9 Acute kidney failure, unspecified; E11.40 Type 2 diabetes mellitus with diabetic neuropathy, unspecified; E87.6 Hypokalemia; I08.3 Combined rheumatic disorders of mitral, aortic and tricuspid valves; R11.0 Nausea; E83.42 Hypomagnesemia; Z79.4 Long term (current) use of insulin; Z79.82 Long term (current) use of aspirin; Z98.42 Cataract extraction status, left eye; Z79.899 Other long term (current) drug therapy; Z79.51 Long term (current) use of inhaled steroids; Z90.49 Acquired absence of other specified parts of digestive tract; J44.9 Chronic obstructive pulmonary disease, unspecified
CPT/HCPCS: 01402; 36415; 51798; 64450; 73560-26-RT; 73560-RT; 80048; 80053; 82962; 83735; 84295; 85025; 85027; 94640; 94760; 94761; 97110-GP; 97116-GP; 97161-GP; 97165-GO; 97530-GP; 97535-GO; A9270-GY; C1713; C1776; J0171; J0690; J0697; J0780; J1815-GY; J1885; J2001; J2270; J2405; J2704; J2795; J3010; J3370; J3475; J3480; J3490; J7040; J7120